=== PATIENT | male | born 1950 | race Two or more races ===

== ENCOUNTER 2024-04-18 09:51 | Outpatient (OUT) | payer MEDICARE, SELFPAY ==
--- NOTE | 2024-04-18 10:01 | ECG_ITS ---
[facility] Test Date: 2024-04-18 Pat Name: AMEE RAI Department: Room: - Gender: Male Telehealth Director: : 1950 Requested By: BRUNO WILLOUGHBY Order Number: [id number] Reading MD: HOANG DUQUE Measurements Intervals [place] Rate: 48 P: 81 SD: 162 QRS: 53 QRSD: 90 T: 60 QT: 424 QTc: 382 Interpretive Statements SINUS BRADYCARDIA No previous ECG available for comparison Electronically Signed On 04-20-2024 13:13:40 EDT by HOANG DUQUE
[2024-04-18 11:03] LABS: Basophils Percent Auto 0.2 % (0.2-2.0); Eosinophils Percent Auto 0.6 % (0.9-7.0); Hematocrit 45.2 % (42.0-54.0); Hemoglobin 15.1 g/dL (14.0-18.0); Immature Granulocytes Abs Auto 0.02 10^3/uL (0.00-0.03); Immature Granulocytes Pct Auto 0.3 % (0.0-0.5); Lymphocytes Percent Auto 15.3 % (20.5-60.0); Mean Corpuscular HGB Conc 33.4 g/dL (29.9-35.2); Mean Corpuscular Hemoglobin 32.8 pg (25.9-34.0); Mean Corpuscular Volume 98.3 fL (80.0-94.0); Mean Platelet Volume 9.1 fL (9.5-13.5); Monocytes Absolute Auto 0.4 10^3/uL (0.3-0.8); Monocytes Percent Auto 6.3 % (1.7-12.0); Neutrophils Absolute Auto 4.9 10^3/uL (1.4-6.5); Neutrophils Percent Auto 77.3 % (43.0-75.0); Platelet Count 207 10^3/uL (150-450); Red Cell Distribution Width 12.1 % (11.0-15.0); White Blood Count 6.4 10^3/uL (4.0-11.0)
[2024-04-18 11:43] LABS: INR 2.31; Partial Thromboplastin Time 37.9 sec (22.3-36.2); Prothrombin Time 22.5 sec (9.0-11.6)
[2024-04-18 11:47] LABS: Anion Gap 13.3; BUN Creatinine Ratio 14.4; Calcium 8.8 mg/dL (8.5-10.1); Carbon Dioxide 27.3 mmol/L (21.0-32.0); Chloride 105 mmol/L (98-107); Estimated GFR (African America >60 (>=60); Estimated GFR (Non-African Ame >60 (>=60); Glucose 93 mg/dL (74-106); Potassium 4.6 mmol/L (3.5-5.1); Sodium 141 mmol/L (136-145)
== END 2024-04-18 09:52 | disposition home or self-care (01) ==
LOC: PST 09:54
PROVIDERS: PCP Family Medicine; Visit Provider Urology
DX: Z01.810 Encounter for preprocedural cardiovascular examination (principal); Z01.812 Encounter for preprocedural laboratory examination; N40.1 Benign prostatic hyperplasia with lower urinary tract symptoms
CPT/HCPCS: 80048; 85025; 85610; 85730; 93005

== ENCOUNTER 2024-04-28 09:33 | Day surgery (SDC) | payer MEDICARE, SELFPAY ==
[2024-04-18 10:07] VITALS: BP 144/88; PULSE 53; TEMP 36.1; O2SAT 98; BMI 26.1
[2024-04-28] VITALS (16 sets, daily range): BP systolic 115–156; BP diastolic 66–94; PULSE 52–80; TEMP 36.1–36.6; O2SAT 93–98; BMI 26.1
[2024-04-28 10:17] LABS: INR 1.06; Partial Thromboplastin Time 25.6 sec (22.3-36.2); Prothrombin Time 11.2 sec (9.0-11.6)
[2024-04-28] MEDS: LACTATED RINGER'S SOLUTION 1,000 ML 50 ML IV ×2 (10:26→13:44)
[2024-04-28] MEDS: LEVOFLOXACIN IN DEXTROSE 5 % 500 MG/100 ML PIGGYBACK 100 MG IV (11:56)
--- NOTE | 2024-04-28 13:41 | P.URON_ITS ---
Urology Surgery Operative Note Operative Note Procedure Date: 04/28/24 Time Out Performed: yes Pre-op Diagnosis: Recurrent gross hematuria, BPH with LUTS Post-op Diagnosis: same as pre-op Procedures performed: 1. Cystoscopy. 2. Transurethral resection of the prostate. 3. Removal of UroLift bands x 4 Anesthesia: BONA Primary Surgeon: [place] Cartagena Complications: None Estimated blood loss (mL): 20 Findings: Tightly obstructing prostate lateral lobes and apical. Severe bladder damage Specimens: Prostate chips and UroLift bands Drains: 22 [place] three-way coud? Jane catheter taped to traction and CBI Indications for Procedures: This gentleman had a UroLift procedure done several years ago by Dr. Castaneda. He has had gross hematuria intermittently ever since the procedure. He also has a weak stream and incomplete emptying. He is obstructed urodynamically and endoscopically. He is strongly desirous for TURP and attempted removal of his UroLift bands. He has signed an informed consent for these procedures after risks were explained. Some of these risks include bleeding, infection, anesthesia, urinary incontinence both temporary and permanent, persistent gross hematuria, retrograde ejaculation, erectile dysfunction and possible need for further operations just to name a few. Detailed description of Procedure: The patient was brought to the operating room and placed on the operating room table in the supine position. SCDs were placed on the lower extremities and turned on and functioning during the entire case. Timeout was done by all parties in the room. We all agreed upon the patient's identification and the planned procedures for this patient. Genn. anesthesia was then administered. The patient was then repositioned into the modified dorsal lithotomy position. All pressure points were satisfactorily padded. Genitalia were sterilely prepped and draped in usual fashion. I started by passing a 26 [place] Garrett resectoscope with a standard bipolar loop electrode per urethra and into the bladder. Severe bladder damage was noted with thick trabeculation and multiple deep diverticuli. The ureteral orifices were marked with the loop electrode. I started on the median lobe and uniformly resected this down to the bladder neck level. I then resected posteriorly from the bladder neck to the Veru level. UroLift bands were removed from the median lobe. The left lateral lobe was then resected from the bladder neck to the Gisella. Purulence pockets were unroofed. I then resected the right lateral lobe in a similar manner. Purulence pockets were also on removed in the right lateral lobe. 2 more UroLift bands were removed from the right side. The anterior tissue was then taken down. I then brought the scope back to the apex. The apical lobes were tightly coapting. They protruded beyond the Gisella. I uniformly resected these so as to open up the obstruction. The bladder neck was opened up at the 5 and 7:00 positions. The Ilich evacuator was used numerous times to get all of the prostate chips and UroLift bands out. The resection bed was coagulated with the loop electrode to maintain hemostasis. Upon completion, with the scope at the Veru, the prostatic urethra and bladder neck were now wide open. There was no bleeding. There were no chips remaining in the bladder. The scope was then removed. I then passed a [address] [place] three- way coud? Jane catheter easily into the bladder. It was manually irrigated with a catheter tip syringe. I then inflated 30 cc of fluid in the balloon. It was taped to traction and CBI was started. It irrigated to a light blood-tinged color. The anesthetic was then reversed. He was then transferred to a [facility] bed and wheeled to PACU in stable condition. Urinary Catheter Management Urinary Catheter Management Urethral: Cath placed during this visit: no
[2024-04-28] MEDS: SOLIFENACIN SUCCINATE 10 MG TABLET PO (13:58)
[2024-04-28] MEDS: 0.9 % SODIUM CHLORIDE 1,000 ML 80 ML IV (13:59)
[2024-04-28] MEDS: HYDROMORPHONE HCL 0.5 MG/0.5 ML SYRINGE IV (14:15)
--- NOTE | 2024-04-28 14:29 | PC.NURSE ---
1410: notified that pts CBI was not irrigating,'s to bedside at 1415 and irrigated pts catheter. pts urine is pink with no clots.
--- NOTE | 2024-04-28 14:32 | PC.NURSE ---
pt medicated at 1415 with 0.5mg IV Dilaudid.
[2024-04-28] MEDS: SODIUM CHLORIDE IRRIG SOLUTION 3,000 ML 3000 ML IRR ×10 (15:55→23:40)
[2024-04-28] MEDS: ATORVASTATIN CALCIUM 10 MG TABLET PO (21:06)
[2024-04-28] MEDS: CEFAZOLIN SODIUM/DEXTROSE,ISO 1 GM/50 ML IV.SOLN IV (21:06)
[2024-04-29] MEDS: SODIUM CHLORIDE IRRIG SOLUTION 3,000 ML 3000 ML IRR ×3 (00:36→02:47)
[2024-04-29] MEDS: 0.9 % SODIUM CHLORIDE 1,000 ML 80 ML IV (00:54)
[2024-04-29] MEDS: CEFAZOLIN SODIUM/DEXTROSE,ISO 1 GM/50 ML IV.SOLN IV (02:47)
[2024-04-29 03:42] VITALS: BP 129/71; PULSE 68; TEMP 36.5; O2SAT 94
--- NOTE | 2024-04-29 05:12 | PC.NURSE ---
traction released at 0506. pt tolerated well. CBI weaning
[2024-04-29] MEDS: OMEPRAZOLE 40 MG CAPSULE.DR PO (06:42)
[2024-04-29 08:00] VITALS: BP 146/84; PULSE 64; TEMP 36.4; O2SAT 96
[2024-04-29] MEDS: DILTIAZEM HCL 180 MG CAP.ER.24H PO (08:39)
[2024-04-29] MEDS: SOLIFENACIN SUCCINATE 10 MG TABLET PO (08:39)
[2024-04-29] MEDS: CALCIUM CARBONATE 600 MG TABLET PO (08:39)
[2024-04-29] MEDS: HYDROCODONE/ACET 5-325 MG TABLET 1 TAB PO (09:04)
== END 2024-04-29 09:26 | disposition home or self-care (01) ==
LOC: SURGOUT 13:37 → MS 15:39
PROVIDERS: PCP Family Medicine; Visit Provider Urology
PROC: (CPT 52601; principal; 2024-04-28 11:15)
DX: N40.1 Benign prostatic hyperplasia with lower urinary tract symptoms (principal); Z79.01 Long term (current) use of anticoagulants; R31.0 Gross hematuria; N32.89 Other specified disorders of bladder; E78.5 Hyperlipidemia, unspecified; I48.91 Unspecified atrial fibrillation; K21.9 Gastro-esophageal reflux disease without esophagitis; Z86.718 Personal history of other venous thrombosis and embolism
CPT/HCPCS: 52601; 36415; 85610; 85730; 88305; J0131; J0690; J1100; J1170; J2250; J2405; J2704; J3010

== ENCOUNTER 2024-05-01 19:55 | Emergency (ER) | payer MEDICARE, OTHER, SELFPAY ==
[2024-05-01 19:58] VITALS: BP 150/94; PULSE 75; TEMP 36.6; O2SAT 98; BMI 24.2
--- OUTSIDE RECORDS SUMMARY | 2024-05-01 20:03 | XMS_ITS | CCD ---
Author Organization [facility] Care Team Providers Care Post Acute Care Nurse Name Role Phone Phoebe KENNEDY Primary Care Physician [phone] Phoebe Kennedy MD Primary Care Provider Phoebe KENNEDY Primary Care Physician [phone] PHOEBE KENNEDY Primary Care Unavailable BEATRIS, PHOEBE Dorado Admitting Unavailable BROWN, Phoebe Attending Unavailable CARTAGENA, [place] R Attending Unavailable CARTGAENA, [place] R Attending Unavailable CARTAGENA, [place] R Attending Unavailable BROWN, Christopher Attending Unavailable BROWN, Christopher Attending Unavailable BROWN, Christophblanco Attending Unavailable CARTAGENA, [place] R Attending Unavailable CARTAGENA, [place] R Referring Unavailable CARTAGENA, [place] R Admitting Unavailable CARTAGENA, [place] R Admitting Unavailable CARTAGENA, [place] R Attending Unavailable CARTAGENA, [place] R Referring Unavailable CARTAGENA, [place] R Attending Unavailable CARTAGENA, [place] R Attending Unavailable CARTAGENA, [place] R Referring Unavailable CARTAGENA, [place] R Admitting Unavailable CARTAGENA, [place] R Attending Unavailable BROWN, Christopher Attending Unavailable BROWN, Christopher Admitting Unavailable BROWN, Christopher Attending Unavailable BROWN, Christopher Admitting Unavailable Eric CASTANEDA Attending Unavailable CARTAGENA, [place] R Attending Unavailable BROWN, Christopher Attending Unavailable BROWN, Christopher Admitting Unavailable BROWN, Christopher Attending Unavailable BROWN, Christopher Attending Unavailable BROWN, Christopher Attending Unavailable BROWN, Christopher Attending Unavailable BROWN, Christopher Attending Unavailable Lou Pacheco PA-C Primary Care Provider LOU PACHECO Attending Unavailable LOU PACHECO Primary Care Unavailable Medications Current Medications Medication Drug Class(es) Dates Sig (Normalized) Sig (Original) calcium carbonate 1500 mg oral tablet (20 sources) Start: 03-01-2018 take 1 tablet by mouth once daily calcium (as carbonate) 600 mg oral tablet 600 mg = 1 tab(s), Oral, Daily, Refills(s) 0 Start Date: 03/01/18 Status: Ordered dextromethorphan hydrobromide 3 mg/ml / promethazine hydrochloride 1.25 mg/ml oral solution (6 sources) Phenothiazine, Uncompetitive F-rnfial-U-aspartat e Receptor Antagonist, Sigma-1 Agonist Start: 04-25-2022 take 5 mL by mouth every six hours for cough dextromethorphan -promethazine 15 mg-6.25 mg/5 mL Oral Syrup 5 mL 5 mL, Oral, q6hr for cough, 120 mL, Refill(s) 0, [facility]/pharmacy #[id number], 182, cm, 02/07/22 11:42:00 EDT, Height/Length Dosing, 82.5, kg, 02/07/22 11:42:00 EDT, Weight Dosing Start Date: 04/25/22 Status: Ordered 24 hr dilTIAZem hydrochloride 180 mg extended release oral capsule (20 sources) Calcium Channel Arjun Start: 09-15-2023 diltiazem CD 180 mg/24 hours Cap-ER 180 mg = 1 cap(s), Oral, Daily, # 90 cap(s), Refills(s) 1, Pharmacy: [facility], 182, cm, 07/24/23 8:37:00 EDT, Height/Length Dosing, 80, kg, 07/24/23 8:37:00 EDT, Weight Dosing Start Date: 09/15/23 Status: Ordered Start: 07-01-2023 diltiazem (CAR DIZEM CD) 180 MG 24 hr capsule 07/01/2023 Active Start: 04-20-2023 diltiazem CD 1 80 mg/24 hours Cap-ER 180 mg = 1 cap(s), Oral, Daily, # 90 cap(s), Refills(s) 1, Pharmacy: [facility], 182, cm, 01/30/23 10:05:00 EDT, Height/Length Dosing, 83.9, kg, 01/30/23 10:05:00 EDT, Weight Dosing Start Date: 04/20/23 Status: Ordered Start: 11-24-2022 diltiazem CD 1 80 mg/24 hours Cap-ER 180 mg = 1 cap(s), Oral, Daily, # 90 cap(s), Refills(s) 1, Pharmacy: [facility], 182, cm, 07/15/22 8:43:00 EDT, Height/Length Dosing, 82.5, kg, 07/15/22 8:43:00 EDT, Weight Dosing Start Date: 11/24/22 Status: Ordered Start: 07-01-2022 diltiazem CD 1 80 mg/24 hours Cap-ER 180 mg = 1 cap(s), Oral, Daily, # 90 cap(s), Refills(s) 1, Pharmacy: [facility], 182, cm, 02/07/22 11:42:00 EDT, Height/Length Dosing, 82.5, kg, 02/07/22 11:42:00 EDT, Weight Dosing Start Date: 07/01/22 Status: Ordered Start: 02-07-2022 diltiazem CD 1 80 mg/24 hours Cap-ER 180 mg = 1 cap(s), Oral, Daily, # 90 cap(s), Refills(s) 1, Pharmacy: [facility], 182, cm, 02/07/22 11:42:00 EDT, Height/Length Dosing, 82.5, kg, 02/07/22 11:42:00 EDT, Weight Dosing Start Date: 02/07/22 Status: Ordered Start: 02-07-2022 diltiazem CD 1 80 mg/24 hours Cap-ER 180 mg = 1 cap(s), Oral, Daily, # 90 cap(s), Refills(s) 1, Pharmacy: [facility], 182, cm, 02/07/22 11:42:00 EDT, Height/Length Dosing, 82.5, kg, 02/07/22 11:42:00 EDT, Weight Dosing Start Date: 02/07/22 Status: Ordered Start: 05-20-2021 diltiazem CD 1 80 mg/24 hours Cap-ER 180 mg = 1 cap(s), Oral, Daily, # 90 cap(s), Refills(s) 1, Pharmacy: [facility], 182, cm, 01/31/21 13:26:00 EDT, Height/Length Dosing, 80.4, kg, 01/31/21 13:26:00 EDT, Weight Dosing Start Date: 05/20/21 Status: Ordered hydrocortisone 25 mg/ml topical cream (2 sources) Corticosteroid Start: 04-25-2024 End: 04-25-2025 hydrocortisone 2.5 % cream Apply topically 2 (two) times a day . 30 g 04/25/2024 04/25/2025 Active [employer] Bounty Red Krill Oil (20 sources) Start: 03-01-2018 [employer] Bount y Red Krill Oil 1200, Oral, BID, Refill(s) 0 Start Date: 03/01/18 Status: Ordered omeprazole 40 mg delayed release oral capsule (20 sources) Proton Pump Inhibitor Start: 11-24-2022 omeprazo le (PRILOSEC) 40 MG capsule Take 1 (one) capsule (40 mg total) by mouth . 11/24/2022 Active Start: 06-30-2022 take 1 capsule by [facility] once daily omeprazole 40 mg Cap-DR 40 mg = 1 cap(s), Oral, Daily, # 90 cap(s), Refills(s) 1, Pharmacy: [facility], 182, cm, 02/07/22 11:42:00 EDT, Height/Length Dosing, 82.5, kg, 02/07/22 11:42:00 EDT, Weight Dosing Start Date: 06/30/22 Status: Ordered Start: 02-07-2022 take 1 capsule by [facility] once daily omeprazole 40 mg Cap-DR 40 mg = 1 cap(s), Oral, Daily, # 90 cap(s), Refills(s) 1, Pharmacy: [facility], 182, cm, 02/07/22 11:42:00 EDT, Height/Length Dosing, 82.5, kg, 02/07/22 11:42:00 EDT, Weight Dosing Start Date: 02/07/22 Status: Ordered omeprazole 20 mg Cap-DR (1 source) Start: 09-30-2021 take 1 capsule by mouth once daily omeprazole 20 mg Cap-DR 20 mg = 1 cap(s), Oral, Daily, # 90 cap(s), Refills(s) 1, Pharmacy: [facility], 182, cm, 07/22/21 9:25:00 EDT, Height/Length Dosing, 81, kg, 07/22/21 9:25:00 EDT, Weight Dosing Start Date: 09/30/21 Status: Ordered omeprazole 40 mg Cap-DR (2 sources) Start: 02-07-2022 take 1 capsule by mouth once daily omeprazole 40 mg Cap-DR 40 mg = 1 cap(s), Oral, Daily, # 90 cap(s), Refills(s) 1, Pharmacy: [facility], 182, cm, 02/07/22 11:42:00 EDT, Height/Length Dosing, 82.5, kg, 02/07/22 11:42:00 EDT, Weight Dosing Start Date: 02/07/22 Status: Ordered Start: 10-07-2021 take 1 capsule by mo ut once daily omeprazole 40 mg Cap-DR 40 mg = 1 cap(s), Oral, Daily, # 90 cap(s), Refills(s) 1, Pharmacy: [facility], 182, cm, 07/22/21 9:25:00 EDT, Height/Length Dosing, 81, kg, 07/22/21 9:25:00 EDT, Weight Dosing Start Date: 10/07/21 Status: Ordered pravastatin sodium 20 mg oral tablet (20 sources) HMG-CoA Reductase Inhibitor Start: 11-24-2022 pravastatin (PRAVACHOL) 20 MG tablet Take 1 (one) tablet (20 mg total) by mouth . 11/24/2022 Active Start: 07-01-2022 take 1 tablet by trae th at bedtime pravastatin 20 mg Tab 20 mg = 1 tab(s), Oral, Bedtime, # 90 tab(s), Refills(s) 1, Pharmacy: [facility], 182, cm, 02/07/22 11:42:00 EDT, Height/Length Dosing, 82.5, kg, 02/07/22 11:42:00 EDT, Weight Dosing Start Date: 07/01/22 Status: Ordered Start: 02-07-2022 take 1 tablet by trae th at bedtime pravastatin 20 mg Tab 20 mg = 1 tab(s), Oral, Bedtime, # 90 tab(s), Refills(s) 1, Pharmacy: [facility], 182, cm, 02/07/22 11:42:00 EDT, Height/Length Dosing, 82.5, kg, 02/07/22 11:42:00 EDT, Weight Dosing Start Date: 02/07/22 Status: Ordered Start: 05-20-2021 take 1 tablet by trae th at bedtime pravastatin 20 mg Tab 20 mg = 1 tab(s), Oral, Bedtime, # 90 tab(s), Refills(s) 1, Pharmacy: [facility], 182, darryl, 01/31/21 13:26:00 EDT, Height/Length Dosing, 80.4, kg, 01/31/21 13:26:00 EDT, Weight Dosing Start Date: 05/20/21 Status: Ordered warfarin sodium 5 mg oral tablet (20 sources) Vitamin K Antagonist Start: 12-05-2022 warfarin (COUMADIN) 5 MG tablet Take 1 (one) tablet (5 mg total) by mouth . 12/05/2022 Active Start: 05-26-2022 take 1 tablet by trae th once daily Coumadin 5 mg Tab 5 mg = 1 tab(s), Oral, Daily, # 90 tab(s), Refills(s) 1, Pharmacy: [facility], 182, cm, 02/07/22 11:42:00 EDT, Height/Length Dosing, 82.5, kg, 02/07/22 11:42:00 EDT, Weight Dosing Start Date: 05/26/22 Status: Ordered Start: 05-20-2021 take 1 tablet by trae th once daily Coumadin 5 mg Tab 5 mg = 1 tab(s), Oral, Daily, # 90 tab(s), Refills(s) 1, Pharmacy: [facility], 182, cm, 01/31/21 13:26:00 EDT, Height/Length Dosing, 80.4, kg, 01/31/21 13:26:00 EDT, Weight Dosing Start Date: 05/20/21 Status: Ordered Completed/Discontinued Medications Medication Drug Class(es) Dates Sig (Normalized) Sig (Original) ciprofloxacin 500 mg oral tablet (6 sources) Quinolone Antimicrobial Start: 4 take 1 tablet by mouth once daily Cipro 500 mg Tab 500 mg = 1 tab(s), Oral, Daily, Take 1 tablet the day before the procedure and 1 tablet after the procedure, # 2 tab(s), Refills(s) 0, Pharmacy: [id number], 182, cm, 07/24/23 8:37:00 EDT, Height/Length Dosing, 80, kg, 07/24/23 8:37:00 EDT, Weight Dosing Start Date: 01/15/24 Status: Ordered methylPREDNISolone 40 mg injection (4 sources) Corticosteroid Start: 4 End: methylPREDNISolone sod suc(PF) (SOLU-medrol) 40 mg Start: 04-25-2024 End: 04-25-2024 40 mg, Injection, Once, On M on 04/25/24 at 0930, For 1 dose Start: 04-25-2024 End: 04-25-2024 methylPREDNISolone sod suc(P F) (SOLU-medrol) 40 mg Start: 04-25-2024 End: 04-25-2024 40 mg, Injection, Once, On M on 04/25/24 at 0930, For 1 dose Problems Active Problems Problem Classification Problem Date Documented Da te Episodic/Chronic Administrative/social admission (4 sources) Patient encounter status; Translations: [Persons encountering health services in other specified circumstances] Onset: 4 04-25-2024 Episodic Allergic reactions (4 sources) Contact dermatitis due to poison renee; Translations: [Allergic contact dermatitis due to plants, except food] Onset: 4 04-25-2024 Episodic Cardiac dysrhythmias (20 sources) Atrial fibrillation; Translations: [Chronic atrial fibrillation] Onset: 2 Resolved: 9 07-24-2019 Chronic Conditions associated with dizziness or vertigo (5 sources) Dizziness 01-30-2023 Episodic Disorders of lipid metabolism (20 sources) Hyperlipidemia; Translations: [Mixed hyperlipidemia] Onset: 2 Resolved: 9 07-24-2019 Chronic Esophageal disorders (20 sources) Gastroesophageal reflux disease; Translations: [Gastroesophageal reflux disease without esophagitis] Onset: 2 07-06-2020 Chronic Genitourinary symptoms and ill-defined conditions (20 sources) Naresh hematuria; Translations: [Increased frequency of urination] Onset: 2 01-30-2021 Episodic Hyperplasia of prostate (20 sources) Benign prostatic hypertrophy with outflow obstruction; Translations: [Hyperplasia of prostate] Onset: 2 Resolved: 9 07-06-2020 Chronic Immunizations and screening for infectious disease (3 sources) Vaccination given; Translations: [Encounter for immunization] Onset: 2 Episodic Open wounds of extremities (3 sources) Laceration of finger without foreign body; Translations: [Laceration without foreign body of right index finger without damage to nail, initial encounter] Onset: 3 07-12-2023 Episodic Other aftercare (20 sources) Long-term current use of anticoagulant; Translations: [terminal manager (current) use of anticoagulants] Onset: 2 04-30-2020 Episodic Other aftercare (2 sources) Long-term current use of drug therapy; 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] Onset: 2 Episodic Other aftercare (3 sources) Surgical follow-up; Translations: [Encounter for removal of sutures] Onset: 3 Episodic Other aftercare (2 sources) jail (current) use of anticoagulants; Translations: [jail (current) use of anticoagulants] Onset: 4 Episodic Other diseases of kidney and ureters (1 source) Urinary tract obstruction; Translations: [Other obstructive and reflux uropathy] Onset: 3 Episodic Other nutritional; endocrine; and metabolic disorders (20 sources) Overweight; Translations: [Overweight] Onset: 4 02-14-2020 Episodic Other nutritional; endocrine; and metabolic disorders (9 sources) Overweight in adulthood with body mass index of 25 or more but less than 30; Translations: [Body mass index (BMI) 25.0-25.9, adult] Onset: 4 01-30-2023 Episodic Other screening for suspected conditions (not mental disorders or infectious disease) (6 sources) Encounter for screening for malignant neoplasm of prostate; Translations: [Screening for malignant neoplasm done] Onset: 2 Episodic Other upper respiratory disease (20 sources) Allergic rhinitis due to pollen 07-03-2020 Chronic Phlebitis; thrombophlebitis and thromboembolism (20 sources) H/O: Deep vein thrombosis; Translations: [H/O: thrombosis] Onset: 2 Resolved: 8 02-17-2019 Episodic Residual codes; unclassified (20 sources) Family history of prostate cancer 02-14-2020 Episodic Comment on above: and Brother Residual codes; unclassified (1 source) Body mass index 20-24 - normal; Translations: [Body mass index (BMI) 24.0-24.9, adult] Onset: 2 Episodic Residual codes; unclassified (1 source) Family history of cancer; Translations: [Family history of malignant neoplasm of prostate] Onset: 2 Episodic Unclassified (17 sources) Body mass index 20-24 - normal 07-06-2020 Unclassified (20 sources) Drug therapy finding 07-04-2022 Unclassified (9 sources) Influenza vaccination given 07-04-2022 Unclassified (17 sources) Vaccination given 07-04-2022 Unclassified (18 sources) Patient encounter status 01-28-2023 Unclassified (3 sources) Laceration of finger with foreign body 07-13-2023 Unclassified (2 sources) Permanent atrial fibrillation; Translations: [Permanent atrial fibrillation] Onset: 4 Past or Other Problems Problem Classification Problem Date Documented Date Episodic/Chronic Abdominal pain (20 sources) Epigastric pain Resolved: 03-01-2018 02-17-2019 Episodic Noninfectious gastroenteritis (20 sources) Chronic diarrhea Resolved: 04-18-2019 04-21-2019 Episodic Other diseases of veins and lymphatics (20 sources) Peripheral venous insufficiency; Translations: [Venous insufficiency (chronic) (peripheral)] Onset: 02-06-2022 07-06-2020 Episodic Other nutritional; endocrine; and metabolic disorders (20 sources) Body mass index 25-29 - overweight Resolved: 02-17-2019 07-06-2019 Episodic Residual codes; unclassified (20 sources) Family history of coronary arteriosclerosis Resolved: 03-01-2018 02-17-2019 Episodic Results Test Name Value Interpretation Reference Range Facil ity Ambulatory Visit Summaryon 0 04-18-2024 Ambulatory Visit Summary Ambulatory Visit Summary AMEE RAI :1950 Visit Date:04/18/2024 Ambulatory Visit Instructions Your Diagnosis BPH with obstruction/lower urinary tract symptoms Chronic atrial fibrillation History of venous thrombosis Anticoagulant long-term use GERD (gastroesophageal reflux disease) Overweight Other obstructive and reflux uropathy Your Care Team Attending Physician - Phoebe KENNEDY MD Primary Care Physician - Phoebe KENNEDY MD This Is Your Medications List Contact prescribing physician if questions or concerns calcium carbonate (calcium (as carbonate) 600 mg oral tablet) ciprofloxacin (Cipro 500 mg Tab) diltiazem (diltiazem CD 180 mg/24 hours Cap-ER) omega-3 polyunsaturated fatty acids ([employer] Red Krill Oil) omeprazole (omeprazole 40 mg Cap-DR) pravastatin (pravastatin 20 mg Tab) warfarin (Coumadin 5 mg Tab) Procedures Performed Transurethral insertion of prostatic urethral lift implant (04/28/2018), Cystoscopy (03/17/2018), Cystoscopy (02/13/2016), Colonoscopy (02/11/2013), Esophagogastroduodenos copy (02/11/2013), Rotator cuff (03/01/2005), [place] filter, device (03/01/1997), Tonsillectomy and adenoidectomy. Discharge Vitals Heart Rate (Peripheral) 66 Respiratory Rate 16 Blood Pressure 100/60 Height 182 cm Height 72 in Weight 84.4 kg Weight 185.68 lb BMI 25.48 What to do next Scheduled Follow-Up Appointments Thursday 9:00 AM EDT With: Where: [facility] Invalid Interpretation Code [address] [place] [address] [place] [address]- \.br\ Thursday 9:20 AM EDT \.br\ With: Phoebe KENNEDY MD\.br\ Where: [facility] Family Medicine Office/Clini c Noteon 04-18-2024 Family Medicine Office/Clinic Note Family Medicine Office/Clinic Note Chief Complaint pt presents today with for discussion prior to surg with dr cartagena History of Present Illness The patient is a 74-year-old male who is here for surgical clearance for transurethral resection of the prostate. Accompanied by his The patient is scheduled for a Transurethral Resection of the Prostate (TURP) procedure with Dr. Cartagena on 04/28/2024. An electrocardiogram (EKG) was conducted today at [facility]. His anticoagulant therapy is expected to cease on 04/23/24 prior to surgery. INR has been therapeutic with chronic warfarin management. He has been advised to use compression pads post-surgery with his history of recurrent DVTs. Currently He reports nocturia, waking up twice per night to urinate, a symptom that predates his UroLift procedure. His bladder is notably showing trabeculation and the staple from the UroLift has loosened and caused bleeding on a fairly regular basis. This bleeding is exacerbated by physical activities such as golf and lifting. He denies experiencing chest pain or shortness of breath. His dental health is satisfactory, as evidenced by his recent filling procedure. He reports no adverse reactions to anesthesia. He has previously used a urinary catheter for overnight use. Laboratory tests have been conducted, but no chest x-ray has been performed. Review of Systems PHQ Score Initial Depression Screen Score: 0 SCORE See HPI otherwise negative Physical Exam Vitals & Measurements HR: 66(Peripheral) RR: 16 BP: 100/60 SpO2: 97% HT: 72 in HT: 182 cm WT: 84.4 kg WT: 185.68 lb BMI: 25.48 Patient is well groomed and well hydrated. Patient is wearing corrective lenses. Conjunctiva is clear. The dentition. Neck without thyromegaly or JVD. Lungs are clear. Patient is overweight, nontender, with no organomegaly. Genitourinary exam was deferred. Patient is wearing a sports stocking in the left lower extremity. Mild chronic pitting edema is present. Patient is well developed and ambulatory without difficulty. Skin is deeply tanned. Patient is insightful. Assessment/Plan 1. BPH with obstruction/lower urinary tract symptoms (N40.1: Benign prostatic hyperplasia with lower urinary tract symptoms) Chronic BPH symptomatology with hematuria is necessitating progression to a TURP. UroLift anchors will be removed. Dr. Cartagena will be managing postoperative course. I have encouraged patient to restart his warfarin if possible within 5 days of surgery if having limited bleeding. 2. Chronic atrial fibrillation (I48.21: Permanent atrial fibrillation) History of atrial fibrillation currently in sinus rhythm. Patient remains fully anticoagulated and using diltiazem for rate control. Always remain vigilant particularly when off of the anticoagulation for any acute exacerbation or GI symptomatology with the needs for which seek emergent care understood 3. History of venous thrombosis (Z86.718: Personal history of other venous thrombosis and embolism) Longstanding history of recurrent DVT but patient has been stable for quite some time. Will be very important to resume his anticoagulant as soon as urology deems feasible. Use the compression pumps daily. 4. Anticoagulant long-term use (Z79.01: jail (current) use of anticoagulants) Current INR is therapeutic. Understands that restarting Coumadin approximately day 5 should be 5 mg daily for 1 week and then resume his usual dosing as previous with a recheck INR in 2 weeks. 5. GERD (gastroesophageal reflux disease) (K21.9: Gastro-esophageal reflux disease without esophagitis) Continuing with chronic PPI omeprazole. Maintain dietary discretions and always remain vigilant for any bleeding 6. Overweight (E66.3: Overweight) The standard range for ages 18 and older is >=18.5 and < 25 kg/m2. Your BMI today was above this range, this falls in the overweight to obese category and there are medical benefits to weight loss. We can offer counselling, referral, and/or medical support in addressing this problem. Your BMI and weight management will be followed at subsequent visits. 7. BMI 25.0-25.9,adult (Z68.25: Body mass index [BMI] 25.0-25.9, adult) See see #6 Portions of this record may have been created with voice recognition artificial intelligence software, specifically [employer], Tip[employer] and or [facility]. Substitutions may have occurred due to the inherent limitations of voice recognition and artificial intelligence software. Follow-up With When Contact Information Phoebe KENNEDY MD, FAM Only if needed Additional Instructions: Patient Education Benign Prostatic Hyperplasia Problem List/Past Medical History Ongoing Anticoagulant long-term use BMI 25.0-25.9,adult BPH with obstruction/lower urinary tract symptoms Chronic atrial fibrillation Chronic venous insufficiency COVID-19 vaccine series started Family history of prostate cancer Frequency of urinati (more content not included)... Normal [facility] Comment on above: Result Comment: Elec tronically Signed By: BEATRIS ROMERO, Michael.br\Date and Time Signed: 04/18/24 22:36 EDT PT/INRon 03-28-2024 INR Coag (PPP) [Relative time] 2.8 {INR} High 0.8-1.1 [facility] Comment on above: Order Comment: Durin g the induction phase of oral anticoagulation, the INR may not reflect the anticoagulation status of the patient. Therapeutic ranges for INR's are: Most clinical situations: INR 2.0-3.0 Mechanical Prosthetic Valve: INR 2.5-3.5 Critical: INR >5.0 Performed By: #### [id number] #### [facility] [address] [place] [address] Constantin Hedrick M.D. [id number] PT Coag (PPP) [Time] 29.8 s High 11.8-14.3 [facility] Comment on above: Order Comment: Zachary g the induction phase of oral anticoagulation, the INR may not reflect the anticoagulation status of the patient. Therapeutic ranges for INR's are: Most clinical situations: INR 2.0-3.0 Mechanical Prosthetic Valve: INR 2.5-3.5 Critical: INR >5.0 Performed By: #### [id number] #### [facility] [address] [place] [address] Constantin Hedrick M.D. [id number] Consent for Procedure/Surger yon 03-17-2024 Consent for Procedure/Surgery [id number] 0TIFF [facility] Consent for Procedure/Surger yon 03-01-2024 Consent for Procedure/Surgery [id number] 0TIFF [facility] Consent for Treatmenton Consent for Treatment [id number] 0TIFF Normal [facility] IntraOperative Documentson 0 03-01-2024 IntraOperative Documents [id number] 0TIFF Normal [facility] IntraOperative Documents [id number] 0TIFF Normal [facility] Fish and Urine Cyt o ([facility])on 02-09-2024 [facility] Diagnosis Info Invalid Interpretation Code [facility] Comment on above: Result Comment: A:Ur ine,Urine:Voided Diagnosis Summary - Diagnosis Summary - The UroVysion FISH study detected normal copy numbers for chromosomes 3, 7, 17, and 9p21. 88 cells were analyzed in this evaluation. No evidence of aneuploidy for chromosomes 3, 7, or 17 or deletion of the 9p21 locus was found in cells present in this specimen. This test does not rule out the possibility of a low grade non-invasive papillary urothelial carcinoma. These findings should be correlated with cytology and cystoscopy results.* Microscopic Notes - Microscopic Notes - Abnormal cells 9p21 deletions: Abnormal cells aneploid events: Total cells analyzed: 88 Hematuria: Gross Description Site ID:A color Yellow fixative Alcohol Received 90 mls of clear yellow fluid with the patient's name and, Urine on the vial. Electronically signed by : on: 02/09/2024 14:16:17 Performed By: #### 1 [id number] #### [facility] Laboratory [address] [place] [id number] Ambulatory Visit Summaryon 0 02-08-2024 Ambulatory Visit Summary AMEE RAI :1950 Visit Date:02/08/2024 Ambulatory Visit Instructions Your Diagnosis Chronic atrial fibrillation Anticoagulated BPH with obstruction/lower urinary tract symptoms Chronic venous insufficiency Hyperlipemia, mixed History of venous thrombosis GERD (gastroesophageal reflux disease) Overweight BMI 25.0-25.9,adult Your Care Team Attending Physician - Phoebe KENNEDY MD Primary Care Physician - Phoebe KENNEDY MD This Is Your Medications List Contact prescribing physician if questions or concerns calcium carbonate (calcium (as carbonate) 600 mg oral tablet) ciprofloxacin (Cipro 500 mg Tab) diltiazem (diltiazem CD 180 mg/24 hours Cap-ER) omega-3 polyunsaturated fatty acids (Nature's Bounty Red Krill Oil) omeprazole (omeprazole 40 mg Cap-DR) pravastatin (pravastatin 20 mg Tab) warfarin (Coumadin 5 mg Tab) Procedures Performed Transurethral insertion of prostatic urethral lift implant (04/28/2018), Cystoscopy (03/17/2018), Cystoscopy (02/13/2016), Colonoscopy (02/11/2013), Esophagogastroduodenos copy (02/11/2013), Rotator cuff (03/01/2005), [place] filter, device (03/01/1997), Tonsillectomy and adenoidectomy. Discharge Vitals Heart Rate (Peripheral) 65 Respiratory Rate 16 Blood Pressure 120/80 Height 182 cm Height 72 in Weight 84.1 kg Weight 185.02 lb BMI 25.39 What to do next Scheduled Follow-Up Appointments Thursday 3:00 PM EDT With: Where: [facility] Thursday 8:00 AM EDT With: Where: [facility] Thursday 9:45 AM EDT With: FARTUN ROMERO, [place] Dorado Where: [facility] Normal [address] [place] [address]- \.br\ You Need to Schedule the Following Appointments\.br\ Follow Up with BEATRIS ROMERO, RUBY Smith When: Within 6 months\.br\ Comments:\.br\ try to set up back to back with medicare exam\.br\ Where:\.br\ [address] [facility]\.br\ [place] [address]-\.br\ \.br\ Medications\.br\ What How Much When Instructions\.br\ Unchanged calcium carbonate (calcium (as carbonate) 600 mg oral tablet) 1 Tablets By Mouth Every day Contact prescribing physician if questions or concerns \.br\ Unchanged ciprofloxacin (Cipro 500 mg Tab) 1 Tablets By Mouth Every day Take 1 tablet the day before the procedure and 1 tablet after the procedure Contact prescribing physician if questions or concerns \.br\ Unchanged diltiazem (diltiazem CD 180 mg/ 24 hours Cap-ER) 1 Capsules By Mouth Every day Contact prescribing physician if questions or concerns \.br\ Unchanged omega-3 polyunsaturated fatty acids (Nature's Bounty Red Krill Oil) 1200 By Mouth 2 times a day Contact prescribing physician if questions or concerns \.br\ Unchanged omeprazole (omeprazole 40 mg Cap-DR) 1 Capsules By Mouth Every day Contact prescribing physician if questions or concerns \.br\ Unchanged pravastatin (pravastatin 20 mg Tab) 1 Tablets By Mouth At bedtime Contact prescribing physician if questions or concerns \.br\ Unchanged warfarin (Coumadin 5 mg Tab) 1 Tablets By Mouth Every day Contact prescribing physician if questions or concerns \.br\ Allergies\.br\ No Known Allergies\.br\ Problems\.br\ Ongoing - Any problem that you are currently receiving treatment for.\.br\ Anticoagulated\.br \ BMI 25.0-25.9,adult\.b r\ BPH with obstruction/lower urinary tract symptoms\.br\ Chronic atrial fibrillation\.br\ Chronic venous insufficiency\.br\ COVID-19 vaccine series started\.br\ Family history of prostate cancer\.br\ Frequency of urination\.br\ GERD (gastroesophageal reflux disease)\.br\ Gross hematuria\.br\ History of venous thrombosis\.br\ Hyperlipemia, mixed\.br\ On statin therapy\.br\ Overweight\.br\ Screen for colon cancer\.br\ Screening PSA (prostate specific antigen)\.br\ Historical - Any problem that you are no longer receiving treatment for.\.br\ Acute allergic rhinitis due to pollen\.br\ Afib\.br\ BMI 26.0-26.9,adult\.b r\ Chronic diarrhea\.br\ Epigastric pain\.br\ Family history of early CAD\.br\ Family history of prostate cancer in father\.br\ History of DVT in adulthood\.br\ Hyperlipidemia\.br \ Hypertrophy of prostate without urinary obstruction\.br\ Over weight\.br\ Venous thrombosis\.br\ Patient Survey\.br\ You may receive a survey via text or e-mail asking about your office visit. Please share your experience with us by completing your survey. We appreciate your feedback and thank you for choosing us for your care.\.br\ Education Materials\.br\ Atrial Fibrillation\.br\ \.br\ Atrial fibrillation is a type of irregular or rapid heartbeat (arrhythmia). In atrial fibrillation, the top part of the heart (atria) beats in an irregular pattern. This makes the heart unable to pump blood normally and effectively.\.br\ The goal of treatment is to prevent blood clots from forming, control your heart rate, or restore your heartbeat to a normal rhythm. If this condition is not treated, it can cause serious problems, such as a weakened heart muscle (cardiomyopathy) or a stroke.\.br\ What are the causes?\.br\ This condition is often caused by medical conditions that damage the heart's electrical system. These include:\.br\ ? \.br\ High blood pressure (hypertension). This is the most common cause.\.br\ ? \.br\ Certain heart problems or conditions, such as heart failure, coronary artery disease, heart valve problems, or heart surgery.\.br\ ? \.br\ Diabetes.\.br\ ? \.br\ Overactive thyroid (hyperthyroidism). \.br\ ? \.br\ Obesity.\.br\ ? \.br\ Chronic kidney disease.\.br\ In some cases, the cause of this condition is not known.\.br\ What increases the risk?\.br\ This condition is more likely to develop in:\.br\ ? \.br\ Older people.\.br\ ? \.br\ People who smoke.\.br\ ? \.br\ Athletes who do endurance exercise.\.br\ ? \.br\ People who have a family history of atrial fibrillation.\.br\ ? \.br\ Men.\.br\ ? \.br\ People who use drugs.\.br\ ? \.br\ People who drink a lot of alcohol.\.br\ ? \.br\ People who have lung conditions, such as emphysema, pneumonia, or COPD.\.br\ ? \.br\ People who have obstructive sleep apnea.\.br\ What are the signs or symptoms?\.br\ Symptoms of this condition include:\.br\ ? \.br\ A feeling that your heart is racing or beating irregularly.\.br\ ? \.br\ Discomfort or pain in your chest.\.br\ ? \.br\ Shortness of breath.\.br\ ? \.br\ Sudden light-headedness or weakness.\.br\ ? \.br\ Tiring easily during exercise or activity.\.br\ ? \.br\ Fatigue.\.br\ ? \.br\ Syncope (fainting).\.br\ ? \.br\ Sweating.\.br\ In some cases, there are no symptoms.\.br\ How is this diagnosed?\.br\ Your health care provider may detect atrial fibrillation when taking your pulse. If detected, this condition may be diagnosed with:\.br\ ? \.br\ An electrocardiogram (ECG) to check electrical signals of the heart.\.br\ ? \.br\ An ambulatory case monitor to record your heart's activity for a few days.\.br\ ? \.br\ A transthoracic echocardiogram (TTE) to create pictures of your heart.\.br\ ? \.br\ A transesophageal echocardiogram (RAPHAEL) to create even closer pictures of your heart.\.br\ ? \.br\ A stress test to check your blood supply while you exercise.\.br\ ? \.br\ Imaging tests, such as a CT scan or chest X-ray.\.br\ ? \.br\ Blood tests.\.br\ How is this treated?\.br\ Treatment depends on underlying conditions and how you feel when you experience atrial fibrillation. This condition may be treated with:\.br\ ? \.br\ Medicines to prevent blood clots or to treat heart rate or heart rhythm problems.\.br\ ? \.br\ Electrical cardioversion to reset the heart's rhythm.\.br\ ? \.br\ A pacemaker to correct abnormal heart rhythm.\.br\ ? \.br\ Ablation to remove the heart tissue that sends abnormal signals.\.br\ ? \.br\ Left atrial appendage closure to seal the area where blood clots can form.\.br\ In some cases, underlying conditions will be treated.\.br\ Follow these instructions at home:\.br\ Medicines\.br\ ? \.br\ Take over-the counter and prescription medicines only as told by your health care provider.\.br\ ? \.br\ Do not take any new medicines without talking to your health care provider.\.br\ ? \.br\ If you are taking blood thinners:\.br\ ? \.br\ Talk with your health care provider before you take any medicines that contain aspirin or NSAIDs, such as ibuprofen. These medicines increase your risk for dangerous bleeding.\.br\ ? \.br\ Take your medicine exactly as told, at the same time every day.\.br\ ? \.br\ Avoid activities that could cause injury or bruising, and follow instructions about how to prevent falls.\.br\ ? \.br\ Wear a medical alert bracelet or carry a card that lists what medicines you take.\.br\ Lifestyle\.br\ \.br\ \.br\ ? \.br\ Do not use any products that contain nicotine or tobacco, such as cigarettes, e-cigarettes, and [facility] Family Medicine Office/Clini c Noteon 02-08-2024 [facility] Medicine Office/Clinic Note Chief Complaint 6mo chk up, labs drawn last wk, no rfs, pt requesting copy of labs which were printed and gvn to pt History of Present Illness The patient is here for general health maintenance checkup. The patient recently underwent a cystoscopy and has recently been experiencing hematuria. A UroLift procedure, which he believes may be causing irritation, is scheduled for removal in 02/2024. Despite maintaining a consistent urinary stream, he has been informed that his bladder is irregular and trabeculated, a condition that has persisted for an extended period. Last year, he experienced mild hematuria while mowing his lawn. He has been attempting to increase his water intake to flush his bladder. The patient experiences intermittent episodes of atrial fibrillation, which do not persist for extended periods or induce dyspnea. He reports experiencing dizziness and dyspnea upon standing from a bent position. Has not had any falls. No associated diaphoresis nausea or visual disturbances. Taking diltiazem daily blood pressures are not routinely followed. Patient remains on chronic anticoagulation for the A-fib stable and therapeutic. Denies any reflux esophagitis. Continues pravastatin and labs have been all stable including recent draws which are reviewed today. Review of Systems PHQ Score Initial Depression Screen Score: 0 SCORE see hpi otherwise neg Physical Exam Vitals & Measurements HR: 65(Peripheral) RR: 16 BP: 120/80 SpO2: 94% HT: 72 in HT: 182 cm WT: 84.1 kg WT: 185.02 lb BMI: 25.39 The patient is well groomed and adequately hydrated. The patient's head is normocephalic and he is wearing corrective lenses. His conjunctivae are clear. His oropharynx is pink and moist. The patient's neck is supple. There is no JVD or thyromegaly. The patient's lungs are clear bilaterally. The patient's heart has a regular rate and rhythm. No murmur, gallop, or rub are detected. The patient's abdomen is soft and nontender. No organomegaly is detected. Hyperactive bowel sounds are observed. There is no flank tenderness. The patient is well developed and well nourished. He has a support stocking on the left lower extremity with chronic mild pitting edema. The patient's skin is warm and dry. There are some mild senile purpura on his arms. The patient is cooperative and is insightful. Assessment/Plan 1. Chronic atrial fibrillation (I48.21: Permanent atrial fibrillation) Patient remains fully anticoagulated with rate control continuing on Cardizem. If he continues to have any episodes of dizziness we will need to consider reduction in dose or reviewing Holter monitor. 2. 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 BPH with obstruction/lower urinary tract symptoms (N40.1: Benign prostatic hyperplasia with lower urinary tract symptoms) Patient is under the care of urology currently undergoing further urodynamic testing with anticipated removal of the UroLift anchors with probable need for further prostate treatment 4. Chronic venous insufficiency (I87.2: Venous insufficiency (chronic) (peripheral)) Chronic secondary to previous DVT. Patient wear support stockings on the left limit sodium and keep legs elevated 5. Hyperlipemia, mixed (E78.2: Mixed hyperlipidemia) Maintaining pravastatin moderate intensity lipids are well-controlled no change in treatment regimen attempted to prevent cardiovascular disease risk progression 6. History of venous thrombosis (Z86.718: Personal history of other venous thrombosis and embolism) Patient remains fully anticoagulated with Coumadin INR is therapeutic at 2.49 continue same dosing and repeat value in 6 weeks always avoid activities that could lead to risk of falls or injury with bleeding 7. GERD (gastroesophageal reflux disease) (K21.9: Gastro-esophageal reflux disease without esophagitis) Continue with PPI along with dietary compliance always remain vigilant for dysphagia 8. Overweight (E66.3: Overweight) The standard range for ages 18 and older is >=18.5 and < 25 kg/m2. Your BMI today was above this range, this falls in the overweight to obese category and there are medical benefits to weight loss. We can offer counselling, referral, and/or medical support in addressing this problem. Your BMI and weight management will be followed at subsequent visits. 9. BMI 25.0-25.9,adult (Z68.25: Body mass index [BMI] 25.0-25.9, adult) See #8 Portions of this record may have been created with voice recognition artificial intelligence software, specifically [employer], [employer] and or [facility]. Substitutions may have occurred due to the inherent limitations of voice recognition and artificial intelligence software. Follow-up With When Contact Information Phoebe KENNEDY MD, FAM Within [address] [place], [place] [id number] Additional Instructions: try to set up back to back with medicare exam Patient (more content not included)... Normal [facility] Comment on above: Result Comment: Elec tronically Signed By: Phoebe KENNEDY MD\.br\Date and Time Signed: 02/08/24 15:27 EDT Ambulatory Visit Summaryon 0 02-05-2024 Ambulatory Visit Summary AMEE RAI :1950 Visit Date:02/05/2024 Ambulatory Visit Instructions Your Diagnosis Anticoagulant long-term use BPH with obstruction/lower urinary tract symptoms Chronic atrial fibrillation Chronic venous insufficiency GERD (gastroesophageal reflux disease) History of venous thrombosis Hyperlipemia, mixed Overweight Tests Performed CBC w/ Auto Diff -- Results Pending -- CMP -- Results Pending -- Lipid Panel -- Results Pending -- Please visit your patient portal for your results or contact your primary care physician. Your Care Team Admitting Physician - Phoebe KENNEDY MD Attending Physician - Phoebe KENNEDY MD Primary Care Physician - Phoebe KENNEDY MD This Is Your Medications List calcium carbonate (calcium (as carbonate) 600 mg oral tablet) ciprofloxacin (Cipro 500 mg Tab) diltiazem (diltiazem CD 180 mg/24 hours Cap-ER) omega-3 polyunsaturated fatty acids (Nature's Bounty Red Krill Oil) omeprazole (omeprazole 40 mg Cap-DR) pravastatin (pravastatin 20 mg Tab) warfarin (Coumadin 5 mg Tab) Procedures Performed Transurethral insertion of prostatic urethral lift implant (04/28/2018), Cystoscopy (03/17/2018), Cystoscopy (02/13/2016), Colonoscopy (02/11/2013), Esophagogastroduodenos copy (02/11/2013), Rotator cuff (03/01/2005), [place] filter, device (03/01/1997), Tonsillectomy and adenoidectomy. What to do next Scheduled Follow-Up Appointments Thursday 12:40 PM EDT With: Phoebe KENNEDY MD Where: [facility] Invalid Interpretation Code [address] [place] [address] [place] [address]- \.br\ Thursday 1:00 PM EDT \.br\ With:\.br\ Where: [facility] CBC w/ Auto Diffon 4 Basophils/100 WBC (Bld) 0.3 % Normal 0.0-2.0 [facility] Comment on above: Performed By: #### 2 [id number], [id number], [id number], [id number], [id number] #### [facility] Laboratory [address] [place] [address] Basophils/Leukocyte s Auto (Bld) [Pure # fraction] 0.0 E9/L Normal 0.0-0.2 [facility] Comment on above: Performed By: #### 2 617936, [id number], [id number], [id number], 3148309 #### [facility] Laboratory [address] [place] [address] Eosinophils (Bld) [#/Vol] 0.1 E9/L Normal 0.0-0.5 [facility] Comment on above: Performed By: #### 2 790413, 8082589, 17230248, 5841406, 0827704 #### [facility] Laboratory [address] [place] [address] Eosinophils/100 WBC (Bld) 1.3 % Normal 0.0-8.0 [facility] Comment on above: Performed By: #### 2 284267, 7433660, 24126481, 3225706, 7620326 #### [facility] Laboratory [address] [place] [address] Erythrocyte distribution width (RBC) [Ratio] 14.1 % Normal 10.9-14.2 [facility] Comment on above: Performed By: #### 2 947952, 9847728, 10602086, 2536425, 4791293 #### [facility] Laboratory [address] [place] [address] Hematocrit (Bld) [Volume fraction] 43.7 % Normal 37.7-49.0 [facility] Comment on above: Performed By: #### 2 957650, 1158445, 76153565, 9425239, 2684823 #### [facility] Laboratory [address] [place] [address] Hemoglobin (Bld) [Mass/Vol] 14.9 g/dL Normal 13.5-17.5 [facility] Comment on above: Performed By: #### 2 492377, 6931990, 76413223, 9914941, 8154863 #### [facility] Laboratory [address] [place] [address] Lymphocytes (Bld) [#/Vol] 0.9 E9/L Low 1.0-4.0 [facility] Comment on above: Performed By: #### 2 378424, 4110954, 70736982, 5843777, 1694109 #### [facility] Laboratory [address] [place] [address] Lymphocytes/100 WBC (Bld) 16.5 % Normal 14.0-50.0 [facility] Comment on above: Performed By: #### 2 116695, 9194319, 05717869, 0889017, 8993860 #### [facility] Laboratory [address] [place] [address] MCH (RBC) [Entitic mass] 33.7 pg Normal 27.0-34.0 [facility] Comment on above: Performed By: #### 2 009524, 6234235, 36874283, 7920305, 5172586 #### [facility] Laboratory [address] [place] [address] MCHC (RBC) [Mass/Vol] 34.0 g/dL Normal 31.4-36.0 [facility] Comment on above: Performed By: #### 2 692780, 7332710, 62733355, 7582889, 1379024 #### [facility] Laboratory [address] [place] [address] MCV (RBC) [Entitic vol] 98.9 fL Normal 80.0-100.0 [facility] Comment on above: Performed By: #### 2 468922, 2281229, 15059870, 3031189, 1015759 #### [facility] Laboratory [address] [place] [address] Monocytes (Bld) [#/Vol] 0.4 E9/L Normal 0.2-1.0 [facility] Comment on above: Performed By: #### 2 708374, 9996444, 99357052, 7354803, 0110940 #### [facility] Laboratory [address] [place] [address] Neutrophils (Bld) [#/Vol] 4.3 E9/L Normal 2.0-7.5 [facility] Comment on above: Performed By: #### 2 261509, 7473026, 31149365, 6804326, 9436269 #### [facility] Laboratory [address] [place] [address] Neutrophils/100 WBC (Bld) 75.4 % High 36.0-75.0 [facility] Comment on above: Performed By: #### 2 043543, 9129607, 08552099, 6801159, 7640072 #### [facility] Laboratory [address] [place] [address] Platelet mean volume (Bld) [Entitic vol] 7.6 fL Normal 6.4-10.8 [facility] Comment on above: Performed By: #### 2 603126, 9195068, 47588633, 9301810, 5334669 #### [facility] Laboratory [address] [place] [address] Platelets (Bld) [#/Vol] 210.0 E9/L Normal 150.0-500.0 [facility] Comment on above: Performed By: #### 2 026527, 7551572, 93958948, 3245225, 4847604 #### [facility] Laboratory [address] [place] [address] RBC (Bld) [#/Vol] 4.4 E12/L Normal 4.3-5.9 [facility] Comment on above: Performed By: #### 2 543352, 8994076, 56232815, 3951969, 9925674 #### [facility] Laboratory [address] [place] [address] WBC corrected for nucl RBC Auto (Bld) [#/Vol] 5.7 E9/L Normal 4.0-11.0 [facility] Comment on above: Performed By: #### 2 438553, 8942682, 77323496, 2025596, 7460442 #### [facility] Laboratory [address] [place] [address] CHEMISTRYOrdered By: SYSTEM SYSTEM on 02-05-2024 Albumin [Mass/Vol] 4.4 g/dL Normal 3.3 - 5.0 gm/dL R emisol Chem Albumin/Globulin [Mass ratio] 2.1 {ratio} Normal 1.1 - 2.2 Remisol Chem ALP [Catalytic activity/Vol] 43 [iU]/d Normal 21 - 98 Int._Unit/L Remisol Chem ALT No additional P-5'-P [Catalytic activity/Vol] 20 [iU]/d Normal 6 - 46 Int._Unit/L Remisol Chem Anion gap [Moles/Vol] 9 mmol/L Normal 6 - 16 mEq/L Remisol Chem AST [Catalytic activity/Vol] 19 [iU]/d Normal 5 - 43 Int._Unit/L Remisol Chem Bilirubin [Mass/Vol] 0.6 mg/dL Normal 0.0 - 1.1 mg/dL Remisol Chem Calcium [Mass/Vol] 9.1 mg/dL Normal 8.9 - 11.1 mg/dL Remisol Chem Chloride [Moles/Vol] 106 mmol/L Normal 101 - 111 mmol/L Remisol Chem Cholesterol [Mass/Vol] 127 mg/dL Normal 120 - 200 mg/dL Remisol Chem Cholesterol in HDL [Mass/Vol] 53 mg/dL Invalid Interpretation Code Remisol Chem Comment on above: Result Comment: '>= 60 LOW RISK' '<= 40 HIGH RISK' Cholesterol in LDL [Mass/Vol] 64 mg/dL Normal <=129mg/dL Remisol Chem Cholesterol in VLDL [Mass/Vol] 15 mg/dL Normal 7 - 40 mg/dL Remisol Chem CO2 [Moles/Vol] 29 mmol/L Normal 21 - 31 mmol/L Remis ol Chem Creatinine [Mass/Vol] 1.0 mg/dL Normal 0.5 - 1.3 mg/dL Remisol Chem eGFR 79 mL/min/1.73 m2 Normal >=59mL/min/1.73 m2 Remisol Chem Globulin (S) [Mass/Vol] 2.1 g/dL Normal 1.4 - 4.0 gm/dL Remisol Chem Glucose [Mass/Vol] 88 mg/dL Normal 55 - 199 mg/dL Re misol Chem Potassium [Moles/Vol] 4.2 mmol/L Normal 3.5 - 5.3 mmol/L Remisol Chem Protein [Mass/Vol] 6.5 g/dL Normal 6.0 - 7.8 gm/dL R emisol Chem Sodium [Moles/Vol] 140 mmol/L Normal 135 - 145 mmol/L Remisol Chem Triglyceride [Mass/Vol] 73 mg/dL Normal <=149mg/dL Remisol Chem Urea nitrogen [Mass/Vol] 16 mg/dL Normal 5 - 21 mg/dL Remisol Chem Urea nitrogen/Creatinine [Mass ratio] 16 mg/mg Normal 10 - 20 Remisol Chem CMPon 02-05-2024 Albumin [Mass/Vol] 4.4 g/dL Normal 3.3-5.0 [facility] Comment on above: Performed By: #### 2 [id number], 4720178, [id number], 4017761, 4613088 ####[facility] [address] [place] [address] Albumin/Globulin (S) [Mass conc ratio] 2.1 Normal 1.1-2.2 [facility] Comment on above: Performed By: #### 2 757374, 5497665, 33912583, 1912513, 6314749 ####[facility] [address] [place] [address] ALP [Catalytic activity/Vol] 43 Int._Unit/L Normal 21-98 [facility] Comment on above: Performed By: #### 2 413007, 8036080, [id number], 2599905, 1770344 ####[facility] [address] [place] [address] ALT No additional P-5'-P [Catalytic activity/Vol] 20 Int._Unit/L Normal 6-46 [facility] Comment on above: Performed By: #### 2 000046, 6715079, 33076691, 1407710, 5627747 ####[facility] [address] [place] [address] Anion gap [Moles/Vol] 9 mmol/L Normal 6-16 [facility] Comment on above: Performed By: #### 2 727245, 9406356, [id number], 3669223, 2085937 ####[facility] [address] [place] [address] AST [Catalytic activity/Vol] 19 Int._Unit/L Normal 5-43 [facility] Comment on above: Performed By: #### 2 776517, 3822773, 81860424, 3334564, 2460064 ####[facility] [address] [place] [address] Bilirubin [Mass/Vol] 0.6 mg/dL Normal 0.0-1.1 [facility] Comment on above: Performed By: #### 2 178321, 3705459, 84554150, 6707789, 4483018 ####[facility] [address] [place] [address] Calcium [Mass/Vol] 9.1 mg/dL Normal 8.9-11.1 [facility] Comment on above: Performed By: #### 2 469414, 3040847, 23463738, 7399668, 1984363 ####[facility] [address] [place] [address] Chloride [Moles/Vol] 106 mmol/L Normal 101-111 [facility] Comment on above: Performed By: #### 2 591926, 9825635, 04190079, 0073984, 0794704 ####[address] [address] CO2 [Moles/Vol] 29 mmol/L Normal 21-31 [facility] Comment on above: Performed By: #### 2 594231, 9322734, 68482316, 5358395, 4919968 ####[facility] [address] [place] [address] Creatinine [Mass/Vol] 1.0 mg/dL Normal 0.5-1.3 [facility] Comment on above: Performed By: #### 2 573228, 3270440, 03298555, 3009643, 4003764 ####[facility] [address] [place] [address] Globulin (S) [Mass/Vol] 2.1 g/dL Normal 1.4-4.0 [facility] Comment on above: Performed By: #### 2 686622, 8682178, 34325152, 7945682, 3212334 ####[facility] [address] [place] [address] Glucose [Mass/Vol] 88 mg/dL Normal 55-199 [facility] Comment on above: Performed By: #### 2 796743, 2578609, 03651245, 1465812, 8689393 ####[address] [place] [address] Potassium [Moles/Vol] 4.2 mmol/L Normal 3.5-5.3 [facility] Comment on above: Performed By: #### 2 330628, 2930736, 32545633, 5927109, 5170078 ####[facility] [address] [place] [address] Protein [Mass/Vol] 6.5 g/dL Normal 6.0-7.8 [facility] Comment on above: Performed By: #### 2 899944, 6375139, 67485156, 4757538, 1786106 ####[facility] [address] [place] [address] Sodium [Moles/Vol] 140 mmol/L Normal 135-145 [facility] Comment on above: Performed By: #### 2 370331, 0195825, 14652246, 8185978, 3362578 ####[facility] [address] [place] [address] Urea nitrogen [Mass/Vol] 16 mg/dL Normal 5-21 [facility] Comment on above: Performed By: #### 2 060811, 0182436, 16473074, 0883419, 6675873 ####[facility] [address] [place] [address] Urea nitrogen/Creatinine [Mass ratio] 16 No Units Normal 10-20 [facility] Comment on above: Performed By: #### 2 607470, 7254348, 80851806, 9227849, 3987675 ####[facility] [address] [place] [address] COAGULATIONOrdered By: Christiano Reich on 02-05-2024 INR Coag (PPP) [Relative time] 2.49 {INR} Invalid Interpretation Code [facility] Auto Coag Comment on above: Interpretive Data: I NR results are specifically intended to assess patients stabilized on long-term Anticoagulation therapy suggested INR s Less Intensive Anticoagulation 2.0 3.0 Conventional Range 3.0 4.5 PT Coag (PPP) [Time] 28.1 s High 9.4 - 12.5 second(s) [facility] Auto Coag Comment on above: Interpretive Data: 1 5 days - 4 weeks 1 - 5 months 6 -11 months 1-5 years 6-10 years 11 -17 years Mean: 11.2 (9.5-12.6) Mean: 11.0 (9.7-12.8) Mean: 11.0 (9.8-13.0) Mean: 11.3 (9.9-13.4) Mean: 11.7 (10.0-14.6) Mean: 11.8 (10.0 - 14.1) Pediatric Reference ranges were obtained from a study by Juventino Golden et al. prepared from 1437 samples obtained at 7 different centers using the same coagulation reagent and instrumentation as [facility]. Currently there are no coagulation studies available worldwide for children to 14 days, and no normal ranges. HEMATOLOGYOrdered By: SYSTEM SYSTEM on 02-05-2024 Basophils/100 WBC (Bld) 0.3 % Normal 0.0 - 2.0 % Remisol Heme Basophils/Leukocyte s Auto (Bld) [Pure # fraction] 0.0 E9/L Normal 0.0 - 0.2 E9/L Remisol Heme Eosinophils (Bld) [#/Vol] 0.1 E9/L Normal 0.0 - 0.5 E9/L Remisol Heme Eosinophils/100 WBC (Bld) 1.3 % Normal 0.0 - 8.0 % Remisol Heme Erythrocyte distribution width (RBC) [Ratio] 14.1 % Normal 10.9 - 14.2 % Remisol Heme Hematocrit (Bld) [Volume fraction] 43.7 % Normal 37.7 - 49.0 % Remisol Heme Hemoglobin (Bld) [Mass/Vol] 14.9 g/dL Normal 13.5 - 17.5 gm/dL Remisol Heme Lymphocytes (Bld) [#/Vol] 0.9 E9/L Low 1.0 - 4.0 E9/L Remisol Heme Lymphocytes/100 WBC (Bld) 16.5 % Normal 14.0 - 50.0 % Remisol Heme MCH (RBC) [Entitic mass] 33.7 pg Normal 27.0 - 34.0 pg Remisol Heme MCHC (RBC) [Mass/Vol] 34.0 g/dL Normal 31.4 - 36.0 gm/dL Remisol Heme MCV (RBC) [Entitic vol] 98.9 fL Normal 80.0 - 100.0 fL Remisol Heme Monocytes (Bld) [#/Vol] 0.4 E9/L Normal 0.2 - 1.0 E9/L Remisol Heme Monocytes/100 WBC (Bld) 6.5 % Normal 4.0 - 14.0 % Remisol Heme Neutrophils (Bld) [#/Vol] 4.3 E9/L Normal 2.0 - 7.5 E9/L Remisol Heme Neutrophils/100 WBC (Bld) 75.4 % High 36.0 - 75.0 % Remisol Heme Platelet mean volume (Bld) [Entitic vol] 7.6 fL Normal 6.4 - 10.8 fL Remisol Heme Platelets (Bld) [#/Vol] 210.0 E9/L Normal 150.0 - 500.0 E9/L Remisol Heme RBC (Bld) [#/Vol] 4.4 E12/L Normal 4.3 - 5.9 E12/L Re misol Heme WBC corrected for nucl RBC Auto (Bld) [#/Vol] 5.7 E9/L Normal 4.0 - 11.0 E9/L Remisol Heme Lipid Panelon 02-05-2024 Cholesterol [Mass/Vol] 127 mg/dL Normal 120-200 [facility] Comment on above: Performed By: #### 2 257543, 5950598, 00543353, 9705761, 0516990 ####[facility] [address] [place] [address] Cholesterol in HDL [Mass/Vol] 53 mg/dL Invalid Interpretation Code [facility] Comment on above: Result Comment: '>= 60 LOW RISK' '<= 40 HIGH RISK' Performed By: #### 2 961024, 5247667, 08111514, 6268549, 7293003 ####[facility] [address] [place] [address] Cholesterol in LDL [Mass/Vol] 64 mg/dL Normal <=129 [facility] Comment on above: Performed By: #### 2 123589, 7788277, 02954016, 9979281, 7632998 ####[facility] [address] [place] [address] Cholesterol in VLDL [Mass/Vol] 15 mg/dL Normal 7-40 [facility] Comment on above: Performed By: #### 2 147397, 7180587, 95963247, 3956968, 4047576 ####[facility] [address] [place] [address] Triglyceride [Mass/Vol] 73 mg/dL Normal <=149 [facility] Comment on above: Performed By: #### 2 530515, 8775658, 01912423, 7973867, 9401016 ####[facility] [address] [place] [address] Nurse Consultation Noteon Nurse Consultation Note Reason for Visit LABS Assessment/Plan Anticoagulant long-term use (Z79.01: jail (current) use of anticoagulants) BPH with obstruction/lower urinary tract symptoms (N40.1: Benign prostatic hyperplasia with lower urinary tract symptoms) Chronic atrial fibrillation (I48.21: Permanent atrial fibrillation) Chronic venous insufficiency (I87.2: Venous insufficiency (chronic) (peripheral)) GERD (gastroesophageal reflux disease) (K21.9: Gastro-esophageal reflux disease without esophagitis) History of venous thrombosis (Z86.718: Personal history of other venous thrombosis and embolism) Hyperlipemia, mixed (E78.2: Mixed hyperlipidemia) Overweight (E66.3: Overweight) Medications calcium (as carbonate) 600 mg oral tablet, 600 mg= 1 tab(s), Oral, Daily Cipro 500 mg Tab, 500 mg= 1 tab(s), Oral, Daily Coumadin 5 mg Tab, 5 mg= 1 tab(s), Oral, Daily, 1 refills diltiazem CD 180 mg/24 hours Cap-ER, 180 mg= 1 cap(s), Oral, Daily, 1 refills Nature's Bounty Red Krill Oil, 1200, Oral, BID omeprazole 40 mg Cap-DR, 40 mg= 1 cap(s), Oral, Daily, 1 refills pravastatin 20 mg Tab, 20 mg= 1 tab(s), Oral, Bedtime, 1 refills Allergies No Known Allergies Immunizations Vaccine Date Status Comments influenza virus vaccine, inactivated 07/03/2023 Given Early/Late Reason: Nursing Judgment diphtheria/pertussis, acel/tetanus adult 01/30/2023 Given SARS-CoV-2 (COVID-19) mRNA-1273 vaccine 07/16/2022 Given influenza virus vaccine, inactivated 07/04/2022 Given influenza virus vaccine, inactivated 07/04/2022 Recorded SARS-CoV-2 (COVID-19) mRNA-1273 vaccine 02/14/2022 Recorded influenza virus vaccine, inactivated 07/22/2021 Given SARS-CoV-2 (COVID-19) mRNA-1273 vaccine 07/22/2021 Recorded SARS-CoV-2 (COVID-19) mRNA-1273 vaccine 11/10/2020 Recorded gvn in [place] SARS-CoV-2 (COVID-19) mRNA-1273 vaccine 10/13/2020 Recorded gvn in [place] influenza virus vaccine, inactivated 07/06/2020 Given influenza virus vaccine, inactivated 07/15/2019 Given Nursing Judgment influenza virus vaccine, inactivated 02/09/2019 Recorded influenza virus vaccine, inactivated 07/12/2018 Recorded pneumococcal 23-valent vaccine 09/03/2017 Recorded pneumococcal 23-valent vaccine 09/03/2017 Recorded influenza virus vaccine, inactivated 07/06/2017 Recorded influenza virus vaccine, inactivated 06/25/2016 Recorded pneumococcal 13-valent vaccine 07/26/2015 Recorded pneumococcal 13-valent vaccine 07/26/2015 Recorded zoster vaccine live 06/06/2011 Recorded zoster vaccine live 06/06/2011 Recorded Normal [facility] PTon 02-05-2024 INR Coag (PPP) [Relative time] 2.49 {INR} Invalid Interpretation Code [facility] Comment on above: Result Comment: INR results are specifically intended to assess patients stabilized on long-term Anticoagulation therapy suggested INR?s ?Less Intensive Anticoagulation? 2.0 ? 3.0 Conventional Range 3.0 ? 4.5 Performed By: #### 2 419250, 9036041, 74680887, 7832770, 8511407 #### [facility] Laboratory [address] [place] [address] PT Coag (PPP) [Time] 28.1 second(s) High 9.4-12.5 [facility] Comment on above: Result Comment: 15 d ays - 4 weeks 1 - 5 months 6 -11 months 1- 5 years 6-10 years 11 -17 years Mean: 11.2 (9.5-12.6) Mean: 11.0 (9.7-12.8) Mean: 11.0 (9.8-13.0) Mean: 11.3 (9.9-13.4) Mean: 11.7 (10.0-14.6) Mean: 11.8 (10.0 - 14.1) Pediatric Reference ranges were obtained from a study by Juventino Golden et al. prepared from 1437 samples obtained at 7 different centers using the same coagulation reagent and instrumentation as [facility]. Currently there are no coagulation studies available worldwide for children to 14 days, and no normal ranges. Performed By: #### 2 824607, 7470986, 73397065, 3613984, 7452491 #### [facility] [address] [place] [address] Patient Educationon 02-05-20 24 Patient Education Cardiovascular Atrial Fibrillation Atrial fibrillation is a type of irregular or rapid heartbeat (arrhythmia). In atrial fibrillation, the top part of the heart (atria) beats in an irregular pattern. This makes the heart unable to pump blood normally and effectively. The goal of treatment is to prevent blood clots from forming, control your heart rate, or restore your heartbeat to a normal rhythm. If this condition is not treated, it can cause serious problems, such as a weakened heart muscle (cardiomyopathy) or a stroke. What are the causes? This condition is often caused by medical conditions that damage the heart's electrical system. These include: ? High blood pressure (hypertension). This is the most common cause. ? Certain heart problems or conditions, such as heart failure, coronary artery disease, heart valve problems, or heart surgery. ? Diabetes. ? Overactive thyroid (hyperthyroidism). ? Obesity. ? Chronic kidney disease. In some cases, the cause of this condition is not known. What increases the risk? This condition is more likely to develop in: ? Older people. ? People who smoke. ? Athletes who do endurance exercise. ? People who have a family history of atrial fibrillation. ? Men. ? People who use drugs. ? People who drink a lot of alcohol. ? People who have lung conditions, such as emphysema, pneumonia, or COPD. ? People who have obstructive sleep apnea. What are the signs or symptoms? Symptoms of this condition include: ? A feeling that your heart is racing or beating irregularly. ? Discomfort or pain in your chest. ? Shortness of breath. ? Sudden light-headedness or weakness. ? Tiring easily during exercise or activity. ? Fatigue. ? Syncope (fainting). ? Sweating. In some cases, there are no symptoms. How is this diagnosed? Your health care provider may detect atrial fibrillation when taking your pulse. If detected, this condition may be diagnosed with: ? An electrocardiogram (ECG) to check electrical signals of the heart. ? An ambulatory case monitor to record your heart's activity for a few days. ? A transthoracic echocardiogram (TTE) to create pictures of your heart. ? A transesophageal echocardiogram (RAPHAEL) to create even closer pictures of your heart. ? A stress test to check your blood supply while you exercise. ? Imaging tests, such as a CT scan or chest X-ray. ? Blood tests. How is this treated? Treatment depends on underlying conditions and how you feel when you experience atrial fibrillation. This condition may be treated with: ? Medicines to prevent blood clots or to treat heart rate or heart rhythm problems. ? Electrical cardioversion to reset the heart's rhythm. ? A pacemaker to correct abnormal heart rhythm. ? Ablation to remove the heart tissue that sends abnormal signals. ? Left atrial appendage closure to seal the area where blood clots can form. In some cases, underlying conditions will be treated. Follow these instructions at home: Medicines ? Take over-the counter and prescription medicines only as told by your health care provider. ? Do not take any new medicines without talking to your health care provider. ? If you are taking blood thinners: ? Talk with your health care provider before you take any medicines that contain aspirin or NSAIDs, such as ibuprofen. These medicines increase your risk for dangerous bleeding. ? Take your medicine exactly as told, at the same time every day. ? Avoid activities that could cause injury or bruising, and follow instructions about how to prevent falls. ? Wear a medical alert bracelet or carry a card that lists what medicines you take. Lifestyle ? Do not use any products that contain nicotine or tobacco, such as cigarettes, e-cigarettes, and chewing tobacco. If you need help quitting, ask your health care provider. ? Eat heart-healthy foods. Talk with a dietitian to make an eating plan that is right for you. ? Exercise regularly as told by your health care provider. ? Do not drink alcohol. ? Lose weight if you are overweight. ? Do not use drugs, including cannabis. General instructions ? If you have obstructive sleep apnea, manage your condition as told by your health care provider. ? Do not use diet pills unless your health care provider approves. Diet pills can make heart problems worse. ? Keep all follow-up visits as told by your health care provider. This is important. Contact a health care provider if you: ? Notice a change in the rate, rhythm, or strength of your heartbeat. ? Are taking a blood thinner and you notice more bruising. ? Tire more easily when you exercise or do heavy work. ? Have a sudden change in weight. Get help right away if you have: ? Chest pain, abdominal pain, sweating, or weakness. ? Trouble breathing. (more content not included)... Normal [facility] eGFRon 02-05-2024 eGFR 79 mL/min/1.73 m2 Normal >=59 [facility] Comment on above: Order Comment: Order added by Discern Expert. Performed By: #### 2 987337, 4238630, 30216667, 5154528, 8171554 ####[address] [place] [address] Consent for Procedure/Surger yon 02-02-2024 Consent for Procedure/Surgery [id number] 00TIFF [facility] Consent for Treatmenton Consent for Treatment [id number] 0TIFF [facility] IntraOperative Documentson 0 02-02-2024 IntraOperative Documents [id number]. 00TIFF Normal [facility] Main OR Intraoperative Recor don 02-02-2024 Main OR Intraoperative Record IntraOp Document Type FTURO Summary Primary Physician: [place] CARTAGENA MD Finalized Date/Time: 02/02/24 08:20:53 Pt. Name: AMEE RAI Ramírez/Sex: 1950 Male Med Rec #: [id number] Physician: [place] CARTAGENA MD Financial #: [id number] Pt. Type: O Room/Bed: / Admit/Disch: 02/02/24 07:14:33 - Institution: Case Times FTURO Entry 1 Patient Times In Room 02/02/24 08:03:00 Out Room 02/02/24 08:20:00 Procedure Times Start 02/02/24 08:11:00 Stop 02/02/24 08:18:00 Anesthesia Times Last Modified By: Ale Hale 02/02/24 08:20:47 Case Attendance FTURO Entry 1 Entry 2 Entry 3 Case Attendee [place] CARTAGENA MD, Kelsie E Miller, Laura C Role Performed Surgeon - Primary Yard General Car Supervisor - Primary Scrub - Primary Time In 02/02/24 08:03:00 02/02/24 08:03:00 02/02/24 08:03:00 Time Out 02/02/24 08:20:00 02/02/24 08:20:00 02/02/24 08:20:00 Procedure CYSTOSCOPY LOCAL(.) CYSTOSCOPY LOCAL(.) CYSTOSCOPY LOCAL(.) Comments Last Modified By: Ale Hale Kelsie E Burgderfer, Kelsie E 02/02/24 08:20:48 02/02/24 08:20:48 02/02/24 08:20:48 Surgical Procedures FTURO Entry 1 Procedure Description Procedure CYSTOSCOPY LOCAL Modifiers . Surgeon Description CYSTO WITH A FISH IN CYTOLOGY Primary Procedure Yes Primary Surgeon [place] CARTAGENA MD Start 02/02/24 08:11:00 Stop 02/02/24 08:18:00 Anesthesia Type Local Surgical Service Urology Wound Class 2 - Clean-Contaminated Last Modified By: Ale Hale 02/02/24 08:19:08 General Case Data FTURO Pre-Care Text: Classifies surgical wound, implements aseptic technique, initiates traffic control Entry 1 Case Information OR URO 1 FT Case Level None Wound Class 2 - Clean-Contaminated Specialty Urology Preop Diagnosis GROSS HEMATURIA, FAMILY Postop Same As Preop Yes HX OF PROSTATE CANCER Postop Diagnosis GROSS HEMATURIA, FAMILY Outcomes Met? Yes HX OF PROSTATE CANCER Last Modified By: Ale Hale 02/02/24 08:00:15 Post-Care Text: The patient is free from signs and symptoms of infection EU IntraOp - FTURO Pre-Care Text: Implements protective measures prior to operative or invasive procedure, confirms identity before the operative or invasive procedure, verifies operative procedure, surgical site, and laterality Entry 1 EU Perioperative Protocols Procedure(s) CYSTOSCOPY LOCAL(.) Patient Identity Birthday, ID Band Verified (select at Check, Patient least 2): Participation Consents / H and P HandP, Surgery/Procedure Operative Site N/A Verified Consent Marking Verified Surgical Site Yes Laterality Verified n/a Verified Procedure Verified Yes Correct Patient Yes Position Verified Availability Equipment, Medication Time Out FARTUN ROMERO, Montana Dorado, Verified (If Participants Ale Hale, Applicable) Samia Marti Time Out Complete 02/02/24 08:08:00 Allergies Reviewed? Yes Allergies Reviewed Self/Patient With Body Position Supine Prep Area penis Prep Agents Betadine Solution Skin. Condition Intact, [place], Warm, and Dry Additional FISH Specimens Collected Vitals - EU Blood Pressure 152/87 Pulse 89 bpm Respirations 16 br/min SPO2 97 % EBL 0 IandO - EU Total Intake 0 mL Total Output 0 mL Outcomes Met? Yes Last Modified By: Ale Hale 02/02/24 08:09:56 Post-Care Text: The patient is free from signs and symptoms of injury caused by extraneous objects Sign Out FTURO Entry 1 Before Patient Leaves OR Nurse verbally Yes Nurse verbally n/a confirms with the confirms with the team the name of team that the procedure(s) instrument, sponge, recorded and needle counts are correct (or N/A) Nurse verbally Yes Nurse verbally Yes confirms with the confirms with the team how the team whether there specimen is labeled are any equipment (including patient problems to be name), if applicable addressed Sign Out Complete 02/02/24 08:18:00 Last Modified By: Ale Hale 02/02/24 08:18:51 Case Comments Finalized By: Ale Hale Document Signatures Signed By: Ale Hale 02/02/24 08:20 Ale Hale 02/02/24 08:20 Normal [facility] Main OR Preoperative Recordo n 02-02-2024 Main OR Preoperative Record Holding Area Document Type FTURO Summary Primary Physician: Montana CATRAGENA MD Finalized Date/Time: 02/02/24 07:30:36 Pt. Name: AMEE RAI Christopher Elmore/Sex: 1950 Male Med Rec #: [id number] Physician: [place] CARTAGENA MD Financial #: [id number] Pt. Type: O Room/Bed: / Admit/Disch: 02/02/24 07:14:33 - Institution: Case Times Holding FTURO Pre-Care Text: Verifies consent for planned procedure, identifies individual values and wishes concerning care, includes family members in perioperative teaching Secures patient's records' belongings, and valuables, maintains patient's dignity and privacy, and maintains patient confidentiality Entry 1 In Holding 02/02/24 07:27:00 Outcomes Met? Yes Last Modified By: Nimo Green RN 02/02/24 07:27:48 Post-Care Text: The patient participates in decisions affecting his or her perioperative plan of care The patient's right to privacy is maintained Surgery Checklist FTURO Entry 1 Patient Birthday, ID Band Procedure History and Physical, Identification: Check, Patient Verification: Surgical Consent, With Participation Patient NPO after Midnight: n/a Personal Items: Glasses, Jewelry Personal Items GLASSES; RING X 1 Limitations: UP AD MAI Comment: Complaints of Pain: No Pain Comment: 0/10 Skin Integrity Dry, Warm Vitals - EU Blood Pressure 152/87 Pulse 89 bpm Respirations 16 br/min SPO2 97 % Additional FISH, Other (See Specimens Comment PORTION OF Specimens Collected Comment) FISH/CYTOLOGY - NOT ENOUGH TO COMPLETE TEST - WILL GET REST WITH CYSTO RN Reviewed Yes Last Modified By: Nimo Green RN 02/02/24 07:30:31 Finalized By: Nimo Green RN Document Signatures Signed By: Nimo Green RN 02/02/24 07:30 Normal [facility] Operative Reporton Operative Report Patient: TALI RAI Age: 73 years Sex: Male : 1950 Associated Diagnoses: None Author: [place] CARTAGENA MD Procedure Operative Information Details: Date/ Time: 02/02/2024 09:13:00. Pre-Op Dx: Gross Hematuria - R31.0, BPH w/ LUTS - N40.1, Incomplete Bladder Emptying - R39.14. Post-Op Dx: Same. Anesthesia Type: Local. Procedure: Local Cystoscopy. Complications: None. Risks/Benefits/Informe d Consent: Surgical risks, benefits, details of the procedure have been explained to the patient, Full informed consent has been obtained. Intraoperative Information Prepped: Patient is brought back to the endoscopy suite, Patient is placed in supine position, Patient prepped in the usual fashion with Betadine solution, 2% Xylocaine Jelly is placed per Urethra, After waiting several minutes the Cystoscope is introduced. The Urethra is: Normal. The Prostatic Urethra is: Obstructed, prostate is bleeding at this site.. The Bladder is: Abnormal, Trabeculated (Severe (3), multiple open deep tics. no b.t. on retroflex, urolift band seen in bladder at right side near neck, no b.t.). The ureteral orifices: Show efflux of clear urine. Specimens Removed: Bladder wash sent for FISH and Cytology test. Devices Implanted: None. Removal: Cystoscope is removed, The patient tolerated it well. Postoperative Information Discharge: Patient is discharged home with antibiotic coverage, Follow up arranged. will do urodynamics and then may do a turp. Normal [facility] Comment on above: Result Comment: Elec tronically Signed By: [place] CARTAGENA MD\.br\Date and Time Signed: 02/02/24 09:15 EDT Outpatient Surgery Discharge Instructionon 02-02-2024 Outpatient Surgery Discharge Instruction [id number]. 00TIFF Normal [facility] UroVysion Fish and Urine Cyt o ([facility])on 02-02-2024 [facility] Method of Extraction Voided Normal [facility] Comment on above: Performed By: #### 1 [id number] #### [facility] Laboratory [address] [place] [address] [facility] Number of Jars 1 Invalid Interpretation Code [facility] Comment on above: Performed By: #### 1 [id number] #### [facility] Laboratory [address] [place] [address] [facility] Specimen Urine Normal [facility] Comment on above: Performed By: #### 1 [id number] #### [facility] Laboratory [address] [place] [address] [facility] Type of Service Technical Only Normal [facility] Comment on above: Performed By: #### 1 [id number] #### [facility] Laboratory [address] [place] [address] Lab Reportson 12-01-2023 Lab Reports [id number] 0TIFF Normal [facility] Auth for Release of Medical Recordson 10-26-2023 Auth for Release of Medical Records [id number]#1.0 0TIFF Normal [facility] Lab Reportson 10-08-2023 Lab Reports [id number]#1.0 0TIFF Normal [facility] Lab Reportson 10-04-2023 Lab Reports [id number] 0TIFF Normal [facility] Consent for Treatmenton 06-30 Consent for Treatment [id number] 0TIFF Normal [facility] US Renalon 07-28-2023 US Renal Exam Date/Time: 07/28/2023 06:56 EDT Reason for Exam: R31.0;Hematuria Report IMPRESSION: 2.3 CM CYST FROM UPPER POLE OF THE RIGHT KIDNEY. OTHERWISE, NEGATIVE ULTRASOUND OF THE KIDNEYS. CLINICAL HISTORY: Hematuria, R31.0. Gross hematuria, one time and summer. COMPARISON: NONE. COMMENT: Sonogram of the both kidneys was done. The right kidney measures approximately 10.7 cm in length, with renal cortical thickness of approximately 1.4 cm. The left kidney measures approximately 11.0 cm in length, with renal cortical thickness of approximately 1.1 cm. Both kidneys have a normal sonographic appearance. 2.3 cm cyst from upper pole of the right kidney. There is no hydronephrosis. There is symmetrical color flow into the both kidneys. Ordering Provider: [place] CARTAGENA FINAL REPORT Dictated: 07/28/2023 11:19 am James Mathews M.D. Signed (Electronic Signature): 07/28/2023 11:19 am Signed by: James Mathews M.D. Transcribed by: LILLIANA Technologist: ONEL Perez [facility] Ambulatory Visit Summaryon 1 Ambulatory Visit Summary AMEE RAI :1950 Visit Date:07/24/2023 Ambulatory Visit Instructions Your Diagnosis BPH with obstruction/lower urinary tract symptoms Gross hematuria Family history of prostate cancer Screening PSA (prostate specific antigen) Anticoagulated Tests Performed Urnls Dip Stick Auto w/o Microscopy POC [id number] Your Care Team Attending Physician - [place] CARTAGENA MD Primary Care Physician - Phoebe KENNEDY MD This Is Your Medications List Contact prescribing physician if questions or concerns calcium carbonate (calcium (as carbonate) 600 mg oral tablet) diltiazem (diltiazem CD 180 mg/24 hours Cap-ER) omega-3 polyunsaturated fatty acids (Nature's Bounty Red Krill Oil) omeprazole (omeprazole 40 mg Cap-DR) pravastatin (pravastatin 20 mg Tab) warfarin (Coumadin 5 mg Tab) Procedures Performed Transurethral insertion of prostatic urethral lift implant (04/28/2018), Cystoscopy (03/17/2018), Cystoscopy (02/13/2016), Colonoscopy (02/11/2013), Esophagogastroduodenos copy (02/11/2013), Rotator cuff (03/01/2005), Cambridge filter, device (03/01/1997), Tonsillectomy and adenoidectomy. Discharge Vitals Heart Rate (Peripheral) 65 Respiratory Rate 16 Blood Pressure 131/76 Height 182 cm Height 72 in Weight 80 kg Weight 176 lb BMI 24.15 What to do next Scheduled Follow-Up Appointments Thursday 8:20 AM EDT With: Where: [facility] Invalid Interpretation Code [address] [place] [address]- \.br\ Thursday 1:00 PM EDT \.br\ With:\.br\ Where: [facility] Patient Educationon 07-24-20 23 Patient Education Urology Hematuria, Adult Hematuria is blood in the urine. Blood may be visible in the urine, or it may be identified with a test. This condition can be caused by infections of the bladder, urethra, kidney, or prostate. Other possible causes include: ? Kidney stones. ? Cancer of the urinary tract. ? Too much calcium in the urine. ? Conditions that are passed from parent to child (inherited conditions). ? Exercise that requires a lot of energy. Infections can usually be treated with medicine, and a kidney stone usually will pass through your urine. If neither of these is the cause of your hematuria, more tests may be needed to identify the cause of your symptoms. It is very important to tell your health care provider about any blood in your urine, even if it is painless or the blood stops without treatment. Blood in the urine, when it happens and then stops and then happens again, can be a symptom of a very serious condition, including cancer. There is no pain in the initial stages of many urinary cancers. Follow these instructions at home: Medicines ? Take zvhh-lxx-rbqvstp and prescription medicines only as told by your health care provider. ? If you were prescribed an antibiotic medicine, take it as told by your health care provider. Do not stop taking the antibiotic even if you start to feel better. Eating and drinking ? Drink enough fluid to keep your urine pale yellow. It is recommended that you drink 3?4 quarts (2.8?3.8 L) a day. If you have been diagnosed with an infection, drinking cranberry juice in addition to large amounts of water is recommended. ? Avoid caffeine, tea, and carbonated beverages. These tend to irritate the bladder. ? Avoid alcohol because it may irritate the prostate (in males). General instructions ? If you have been diagnosed with a kidney stone, follow your health care provider's instructions about straining your urine to catch the stone. ? Empty your bladder often. Avoid holding urine for long periods of time. ? If you are female: ? After a bowel movement, wipe from front to back and use each piece of toilet paper only once. ? Empty your bladder before and after sex. ? Pay attention to any changes in your symptoms. Tell your health care provider about any changes or any new symptoms. ? It is up to you to get the results of any tests. Ask your health care provider, or the department that is doing the test, when your results will be ready. ? Keep all follow-up visits. This is important. Contact a health care provider if: ? You develop back pain. ? You have a fever or chills. ? You have nausea or vomiting. ? Your symptoms do not improve after 3 days. ? Your symptoms get worse. Get help right away if: ? You develop severe vomiting and are unable to take medicine without vomiting. ? You develop severe pain in your back or abdomen even though you are taking medicine. ? You pass a large amount of blood in your urine. ? You pass blood clots in your urine. ? You feel very weak or like you might faint. ? You faint. Summary ? Hematuria is blood in the urine. It has many possible causes. ? It is very important that you tell your health care provider about any blood in your urine, even if it is painless or the blood stops without treatment. ? Take rifd-bxl-kpifqsg and prescription medicines only as told by your health care provider. ? Drink enough fluid to keep your urine pale yellow. This information is not intended to replace advice given to you by your health care provider. Make sure you discuss any questions you have with your health care provider. Document Revised: 05/15/2021 Document Reviewed: 05/15/2021 [employer] Patient Education ? 2022 [employer] [facility] Urology Office/Clinic Noteon 07-24-2023 Urology Office/Clinic Note Chief Complaint BPH with obstruction/LUTS and family hx of prostate cancer (father) HPI Staff 1 year f/u with PSA. Previous RWR pt. Previous dx of BPH with urinary obstruction/LUTS (Urolift 2018), gross hematuria and family hx of prostate cancer (father). Current PSA done 07/10/23 is 2.2 and previous done 06/27/22 was 2.4. Dysuria: no Incomplete bladder emptying: no Hematuria: states that with strenuous activity he may see some every now and then but rare and very little Frequency: no Urgency: no Nocturia: 1-2x routine for quite a while Stream: some intermittency no straining Leaking: no Post void dripping: no Wearing pads/ Depends: no Urge incontinence: no Stress incontinence: no Incontinence without Sensory Awareness: no Abdominal pain: no Flank pain: no Sexual complaints: no History of Present Illness Tests reviewed: Reviewed UA and PSA. I have reviewed the previous health record information and history for this patient from Dr. Castaneda. I have reviewed and verified the staff HPI to be accurate for this encounter. There have been no associated fever, chills, flank pain, or blood in the urine. Denies any urinary infections since last encounter. Review of Systems PHQ Score Initial Depression Screen Score: 0 ROS - Provider Constitutional: denies weight loss, denies hot flashes. Eyes: denies eye problems. Gastrointestinal: denies nausea, denies vomiting. Cardiovascular: denies chest pain or angina. Integumentary: no dryness Musculoskeletal: denies musculoskeletal symptoms. ENMT: denies otolaryngeal symptoms. Respiratory: no shortness of breath. Heme/Lymph: denies easy bleeding tendency, denies easy bruising tendency. Psychiatric: no confusion, no anxiety. Genitourinary: See HPI. Physical Exam Vitals & Measurements HR: 65(Peripheral) RR: 16 BP: 131/76 HT: 72 in HT: 182 cm WT: 80 kg WT: 176 lb BMI: 24.15 General Appearance: alert, no distress, well nourished, well developed male. Genitourinary: normal scrotum, normal testes, normal urethra, normal epididymis, normal vas deferens/spermatic cord. Flank Pain: none. Bladder: nonpalpable. Prostate: normal prostate, estimated weight 50 gms, no hard nodule observed. Assessment/Plan Former RWR pt 1. BPH with obstruction/lower urinary tract symptoms (N40.1: Benign prostatic hyperplasia with lower urinary tract symptoms) S/p UroLift 04/2018. Pt is not currently taking any prostate medications. Frequency has resolved since having UroLift. Mild hesitancy however strong stream. 1-2x/night which has been ongoing. Denies urinary concerns or infections. 2. Gross hematuria (R31.0: Gross hematuria) Intermittent gross hematuria with strenuous activity since his urolift. States it is a small amount. Denies clots. Denies gross hematuria prior to UroLift. UA today trace-intact blood. No recent imaging. Enlarged prostate could be a possible cause of gross hematuria. -Cysto under local in the spring when pt returns from [place] -Renal US now @ [facility] The risks and benefits for cystoscopy have been discussed. The risks include bleeding, infection, and irritation of the bladder and urinary channel, among others. The patient, after being informed of procedural details and after questions have been answered, wishes to proceed. Full informed consent has been obtained. Will order Local anesthesia. 3. Family history of prostate cancer (Z80.42: Family history of malignant neoplasm of prostate) Father, diagnosed in his 70s. at age 84 due to heart problems. 4. Screening PSA (prostate specific antigen) (Z12.5: Encounter for screening for malignant neoplasm of prostate) PSA: 06/24/21 - 2.5 06/27/22 - 2.4 07/10/23 - 2.2 WILI today: 50g, benign. -Cont to monitor PSA -PSA due in 1 year 5. 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 Cartagena on 07/24/2023 09:04:55. . Documentation recorded by the scribeMelisa, accurately reflects the services(s) I performed and decisions made by me. Authenticated by Dr. Cartagena on 07/24/2023 09:06:19. Problem List/Past Medical History Ongoing Anticoagulant long-term use Anticoagulated BMI 24.0-24.9, adult BPH with obstruction/lower urinary tract symptoms Chronic atrial fibrillation Chronic venous insufficiency COVID-19 vaccine series started Encounter for removal of sutures Family history of prostate cancer Frequency of urination GERD (gastroesophageal reflux disease) Gross hematuria History of venous thrombosis Hyperlipemia, mixed Laceration with foreign body of right index finger without damage to nail, subseq (more content not included)... Normal [facility] Comment on above: Result Comment: Elec tronically Signed By: [place] CARTAGENA MD\.br\Date and Time Signed: 07/24/23 09:06 EDT\.br\Electronically Co-Signed By: Melisa Vieyra\.br\Date and Time Co-Signed: 07/24/23 09:05 EDT Ambulatory Visit Summaryon 1 Ambulatory Visit Summary AMEE RAI :1950 Visit Date:07/22/2023 Ambulatory Visit Instructions Your Diagnosis Encounter for removal of sutures Laceration with foreign body of right index finger without damage to nail, subsequent encounter Your Care Team Attending Physician - Phoebe KENNEDY MD Primary Care Physician - Phoebe KENNEDY MD This Is Your Medications List calcium carbonate (calcium (as carbonate) 600 mg oral tablet) diltiazem (diltiazem CD 180 mg/24 hours Cap-ER) omega-3 polyunsaturated fatty acids (Nature's Bounty Red Krill Oil) omeprazole (omeprazole 40 mg Cap-DR) pravastatin (pravastatin 20 mg Tab) warfarin (Coumadin 5 mg Tab) Procedures Performed Transurethral insertion of prostatic urethral lift implant (04/28/2018), Cystoscopy (03/17/2018), Cystoscopy (02/13/2016), Colonoscopy (02/11/2013), Esophagogastroduodenos copy (02/11/2013), Rotator cuff (03/01/2005), Oscar filter, device (03/01/1997), Tonsillectomy and adenoidectomy. Discharge Vitals Temperature (Temporal Artery) 37 ?C Heart Rate (Peripheral) 62 Respiratory Rate 16 Blood Pressure 120/62 Height 182 cm Height 72 in Weight 83 kg Weight 182.6 lb BMI 25.06 What to do next Scheduled Follow-Up Appointments Thursday 8:45 AM EDT With: [place] CARTAGENA MD Where: [facility] Invalid Interpretation Code [address] [place] [id number] \.br\ Thursday. 2023 8:00 AM EDT \.br\ With: Phoebe KENNEDY MD\.br\ Where: [facility] Medicine Office/Clini c Noteon 07-22-2023 Family Medicine Office/Clinic Note Chief Complaint Here for stitches removal right index finger History of Present Illness The patient presents for suture removal of the right index finger. Sustained laceration with a ammonia box tender 07/12. Sutures were placed at the emergency room wound has been previously examined here in the office. There was question of viability of the central portion of the wound but it appears to have dried and is remaining fairly pink and healthy. Minimal tenderness. Review of Systems PHQ Score Initial Depression Screen Score: 0 See HPI otherwise negative Physical Exam Vitals & Measurements T: 37 ?C(Temporal Artery) HR: 62(Peripheral) RR: 16 BP: 120/62 SpO2: 96% HT: 72 in HT: 182 cm WT: 83 kg WT: 182.6 lb BMI: 25.06 The patient is well groomed, adequately hydrated. She is wearing corrective lenses. Grossly normal hearing. Right index finger shows 6 sutures intact with good wound approximation. Skin appears to be healthy and viable. The 6 sutures were removed. Wound remains approximated nicely and nontender. Tolerated this well. Steri-Strips applied. Assessment/Plan 1. Encounter for removal of sutures (Z48.02: Encounter for removal of sutures) Sutures easily removed. Wound appears viable asked him to exercise some caution on risk of recurrent injury as his tissue is still healing. Steri-Strips will fall off on their own. 2. Laceration with foreign body of right index finger without damage to nail, subsequent encounter (S61.546D: Laceration with foreign body of right index finger without damage to nail, subsequent encounter) See problem #1 Portions of this record may have been created with voice recognition artificial intelligence software, specifically [employer], [employer] and or [facility]. Substitutions may have occurred due to the inherent limitations of voice recognition and artificial intelligence software. Follow-up With When Contact Information Phoebe KENNEDY MD, FAM Only if needed Additional Instructions: Patient Education Suture Removal, Care After Problem List/Past Medical History Ongoing Anticoagulant long-term use BMI 24.0-24.9, adult BPH with obstruction/lower urinary tract symptoms Chronic atrial fibrillation Chronic venous insufficiency COVID-19 vaccine series started Encounter for removal of sutures Family history of prostate cancer Frequency of urination GERD (gastroesophageal reflux disease) Gross hematuria History of venous thrombosis Hyperlipemia, mixed Laceration with foreign body of right index finger without damage to nail, subsequent encounter On statin therapy Screen for colon cancer Historical Acute allergic rhinitis due to pollen Afib BMI 26.0-26.9,adult Chronic diarrhea Epigastric pain Family history of early CAD Family history of prostate cancer in father History of DVT in adulthood Hyperlipidemia Hypertrophy of prostate without urinary obstruction Over weight Overweight Venous thrombosis Procedure/Surgical History Transurethral insertion of prostatic urethral lift implant (04/28/2018), Cystoscopy (03/17/2018), Cystoscopy (02/13/2016), Colonoscopy (02/11/2013), Esophagogastroduodenos copy (02/11/2013), Rotator cuff (03/01/2005), Cambridge filter, device (03/01/1997), Tonsillectomy and adenoidectomy. Medications calcium (as carbonate) 600 mg oral tablet, 600 mg= 1 tab(s), Oral, Daily Coumadin 5 mg Tab, 5 mg= 1 tab(s), Oral, Daily, 1 refills diltiazem CD 180 mg/24 hours Cap-ER, 180 mg= 1 cap(s), Oral, Daily, 1 refills Nature's Bounty Red Krill Oil, 1200, Oral, BID omeprazole 40 mg Cap-DR, 40 mg= 1 cap(s), Oral, Daily, 1 refills pravastatin 20 mg Tab, 20 mg= 1 tab(s), Oral, Bedtime, 1 refills Allergies No Known Allergies Social History Alcohol - Denies Alcohol Use, 07/04/2022 Current, 07/03/2023 Employment/School Retired, 02/17/2019 Home/Environment Lives with Spouse., 02/17/2019 Substance Abuse - Denies Substance Abuse, 03/01/2018 Tobacco - Denies Tobacco Use, 03/01/2018 Never (less than 100 in lifetime) Tobacco Use:. Never Smokeless Tobacco Use:., 07/22/2023 Family History Acute myocardial infarction: Brother. COPD: Mother. Cardiac disease: Brother. Cataract: Mother and Father. Congenital heart disease: Father and Brother. Diabetes mellitus type 2: Mother and Brother.Negative: Father. MRSA infection: Mother. Macular degeneration: Father. Primary malignant neoplasm of bone: Brother. Primary malignant neoplasm of brain: Father. Primary malignant neoplasm of female breast: Mother. Primary malignant neoplasm of prostate: Father and Brother. Rheumatoid arthritis: Father. Immunizations Vaccine Date Status Comments influenza virus vaccine, inactivated 07/03/2023 Given Early/Late Reason: Nursing Judgment diphtheria/pertussis, acel/tetanus adult 01/30/2023 Given SARS-CoV-2 (COVID-19) mRNA-1273 vaccine 07/16/2022 Given influenza virus vaccine, inactivated 07/04/20 (more content not included)... Normal [facility] Comment on above: Result Comment: Elec tronically Signed By: BEATRIS ROMERO, Phoebe\.br\Date and Time Signed: 07/22/23 09:01 EDT Patient Educationon 07-22-20 Patient Education Dermatology Suture Removal, Care After The following information offers guidance on how to care for yourself after your procedure. Your health care provider may also give you more specific instructions. If you have problems or questions, contact your health care provider. What can I expect after the procedure? After your stitches (sutures) are removed, it is common to have: ? Some discomfort and swelling in the area. ? Slight redness in the area. Follow these instructions at home: If you have a dressing: ? Wash your hands with soap and water for at least 20 seconds before and after you change your bandage (dressing). If soap and water are not available, use hand associate store manager. ? Change your dressing as told by your health care provider. If your dressing becomes wet or dirty, or develops a bad smell, change it as soon as possible. ? If your dressing sticks to your skin, pour warm, clean water over it until it loosens and can be removed without pulling apart the wound edges. Pat the area dry with a soft, clean towel. Do not rub the wound because that may cause bleeding. Wound care ? Check your wound every day for signs of infection. Check for: ? More redness, swelling, or pain. ? Fluid or blood. ? New warmth, a rash, or hardness at the wound site. ? Pus or a bad smell. ? Wash your hands with soap and water for at least 20 seconds before and after touching your wound. If soap and water are not available, use hand associate store manager. ? Keep the wound area dry and clean. Clean and pat the wound dry as told by your health care provider. ? Apply cream or ointment only as told by your health care provider. ? If skin glue or adhesive strips were applied after sutures were removed, leave these closures in place. They may need to stay in place for 2 weeks or longer. If adhesive strip edges start to loosen and curl up, you may trim the loose edges. Do not remove adhesive strips completely unless your health care provider tells you to do that. ? Continue to protect the wound from injury. ? Do not pick at your wound. Picking can cause an infection. Bathing ? Do not take baths, swim, or use a hot tub until your health care provider approves. Ask your health care provider if you may take showers. ? Follow these steps for showering: ? If you have a dressing, remove it before getting into the shower. ? In the shower, allow soapy water to get on the wound. Avoid scrubbing the wound. ? When you get out of the shower, dry the wound by patting it with a clean towel. ? Reapply a dressing over the wound, if needed. Scar care When your wound has completely healed, help decrease the size of your scar by: ? Wearing sunscreen over the scar or covering it with clothing when you are outside. New scars get sunburned easily, which can make scarring worse. ? Gently massaging the scarred area. This can decrease scar thickness. General instructions ? Take prlc-qqh-gaewera and prescription medicines only as told by your health care provider. ? Keep all follow-up visits. This is important. Contact a health care provider if: ? You have more redness, swelling, or pain around your wound. ? You have fluid or blood coming from your wound. ? You have new warmth, a rash, or hardness at the wound site. ? You have pus or a bad smell coming from your wound. ? Your wound opens up. Get help right away if: ? You have a fever or chills. ? You have red streaks coming from your wound. Summary ? After your sutures are removed, it is common to have some discomfort and swelling in the area. ? Wash your hands with soap and water before you change your bandage (dressing). ? Keep the wound area dry and clean. Do not take baths, swim, or use a hot tub until your health care provider approves. This information is not intended to replace advice given to you by your health care provider. Make sure you discuss any questions you have with your health care provider. Document Revised: 01/07/2022 Document Reviewed: 01/07/2022 [employer]it[employer]iz Patient Education ? 2022 [employer]. [employer] [facility] Ambulatory Visit Summaryon 1 Ambulatory Visit Summary AMEE RAI :1950 Visit Date:07/13/2023 Ambulatory Visit Instructions Your Diagnosis Chronic atrial fibrillation BPH with obstruction/lower urinary tract symptoms Chronic venous insufficiency GERD (gastroesophageal reflux disease) Laceration with foreign body of right index finger without damage to nail, subsequent encounter History of venous thrombosis Hyperlipemia, mixed Anticoagulant long-term use Your Care Team Attending Physician - Phoebe KENNEDY MD Primary Care Physician - Phoebe KENNEDY MD This Is Your Medications List Contact prescribing physician if questions or concerns calcium carbonate (calcium (as carbonate) 600 mg oral tablet) diltiazem (diltiazem CD 180 mg/24 hours Cap-ER) omega-3 polyunsaturated fatty acids (Nature's Bounty Red Krill Oil) omeprazole (omeprazole 40 mg Cap-DR) pravastatin (pravastatin 20 mg Tab) warfarin (Coumadin 5 mg Tab) Procedures Performed Transurethral insertion of prostatic urethral lift implant (04/28/2018), Cystoscopy (03/17/2018), Cystoscopy (02/13/2016), Colonoscopy (02/11/2013), Esophagogastroduodenos copy (02/11/2013), Rotator cuff (03/01/2005), [place] filter, device (03/01/1997), Tonsillectomy and adenoidectomy. Discharge Vitals Heart Rate (Peripheral) 62 Respiratory Rate 16 Blood Pressure 128/78 Height 72 in Height 182.88 cm Weight 182.82 lb Weight 83.1 kg BMI 24.85 What to do next Scheduled Follow-Up Appointments Thursday 8:40 AM EDT With: Where: [facility] Medicine Danish Invalid Interpretation Code [address] [place] [address]- \.br\ Thursday 8:20 AM EDT \.br\ With:\.br\ Where: [facility] Danish [facility] Medicine Office/Clini c Noteon 07-13-2023 Family Medicine Office/Clinic Note Chief Complaint 6mo chk up, not fasting, no rfs History of Present Illness The patient is here for general health maintenance checkup. He slid a box knife across his right index finger and ended up with 6 stitches in his finger just yesterday. He is up-to-date with tetanus.. He denies any tendon damage. He went to the urgent care they did not feel there was any tendon involvement. He is on blood thinners. Bleeding has ceased. He checks his blood pressure regularly. Document that he brings over the past several months shows very good consistent average. His heart rate is usually in the high 40s?80s he does not recognize when his heart rate is low. He denies any episodes of heart racing. He has some bruising. He denies any nosebleeds or blood in the bowel. His urinary flow is fair. He notices blood in his urine occasionally when he gets overactive or working too hard. It goes away if he drinks a lot of water and watches it. He denies any clots. PSA is 2.2 showing stability. Has siblings with prostate carcinoma. Optometry care is up-to-date does not have any cataracts. He has new glasses. Had expected to have fasting labs drawn with his INR earlier this week but orders were not in. His labs are always very consistent and they are reviewed from the spring showing good lipid control stable renal functions. Review of Systems PHQ Score Initial Depression Screen Score: 0 see hpi otherwise neg Physical Exam Vitals & Measurements HR: 62(Peripheral) RR: 16 BP: 128/78 SpO2: 99% HT: 72 in HT: 182.88 cm WT: 83.1 kg WT: 182.82 lb BMI: 24.85 The patient is adequately hydrated, reasonably groomed. Wearing corrective lenses. Conjunctivae clear. Pupils symmetric. Grossly normal hearing. Oropharynx pink and moist. Without JVD or bruits. Clear bilaterally. Irregularly irregular. No discrete murmur, gallop, or rub. Abdomen: Soft, flat, nontender. No organomegaly. There is some chronic pitting edema in the left lower extremity, wearing a support stocking. Pulse +1. Mild development, good posture. Deeply tanned. There are senile purpura on the arms. His right index finger laceration approximately 1.2 cm in length on the medial aspect. Slightly tender. Sutures are in intact. Range of motion in the digit is good. Cooperative, insightful. Vital Signs Blood pressure is 128/78. Assessment/Plan 1. Chronic atrial fibrillation (I48.21: Permanent atrial fibrillation) Patient remains fully anticoagulated with Coumadin therapeutic INR managed here in the office. Have provided him an order to take to [place] when he travels this winter to have value done every 4 to 6 weeks. Always remain vigilant for any RVR shortness of breath chest pain seeking emergent care if noted Ordered: PT 2. BPH with obstruction/lower urinary tract symptoms (N40.1: Benign prostatic hyperplasia with lower urinary tract symptoms) Stable at this time without medication use. PSA is normal 3. 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 Continue limiting sodium in the diet keeping legs elevated 4. GERD (gastroesophageal reflux disease) (K21.9: Gastro-esophageal reflux disease without esophagitis) Reflux is stable uses omeprazole daily follow with dietary compliance notify me of any dysphagia 5. Laceration with foreign body of right index finger without damage to nail, subsequent encounter (S61.220D: Laceration with foreign body of right index finger without damage to nail, subsequent encounter) Laceration is stable at this time. Asking him to have sutures removed in 10 days uncertain if the small flap of skin in the center of the repair will remain viable. 6. History of venous thrombosis (Z86.718: Personal history of other venous thrombosis and embolism) See #3 7. Hyperlipemia, mixed (E78.2: Mixed hyperlipidemia) Continues with moderate intensity pravastatin along with dietary compliance to prevent cardiovascular disease risk progression. Agree that labs are stable and we will plan to repeat this in the spring when he returns from [place] 8. Anticoagulant long-term use (Z79.01: jail (current) use of anticoagulants) Always remain vigilant for bruising bleeding and avoid any high risk activities that could entail falls or injuries Portions of this record may have been created with voice recognition artificial intelligence software, specifically App[employer]net, Tipbit and or [facility]. Substitutions may have occurred due to the inherent limitations of voice recognition and artificial intelligence software. Follow-up With When Contact Information Phoebe KENNEDY MD, FAM Within 6 months [address] [id number] Additional Instructions: but see EF or TB for suture removal FINGER LACERATION Patient Education Atrial Fibrillation Problem List/Past Medical History [place] (more content not included)... Normal [facility] Comment on above: Result Comment: Elec tronically Signed By: Phoebe KENNEDY MD\.br\Date and Time Signed: 07/13/23 13:20 EDT Laceration repairon 07-12-20 23 Elle Taylor PA-C 07/12/2023 2:35 PM Wound extent: Laceration repair Date/Time: 07/12/2023 2:17 PM Performed by: Elle Taylor PA-C Authorized by: Elle Taylor PA-C Verbal consent: obtained Consent given by: patient Patient identity confirmed: verbally with patient Body area: upper extremity Location details: right index finger Laceration length: 1.5 cm Foreign bodies: no foreign bodies Tendon involvement: none Nerve involvement: none Anesthesia: digital block Anesthesia: Local Anesthetic: lidocaine 1% without epinephrine Anesthetic total: 5 mL Patient sedated: no Repair type: simple Preparation: Patient was prepped and draped in the usual sterile fashion. Irrigation solution: saline Irrigation method: tap Amount of cleaning: standard Hemostasis achieved with: direct pressure no foreign body, no muscle damage and no tendon damage Debridement: none Degree of undermining: none Skin closure: 5-0 ethilon Number of sutures: 6 Technique: simple interrupted Approximation: close Approximation difficulty: simple Dressing: ABX ointment,non-adherent, coban. Patient tolerance: patient tolerated the procedure well with no immediate complications [facility] Patient Educationon 07-12-20 Patient Education Cardiovascular Atrial Fibrillation Atrial fibrillation is a type of irregular or rapid heartbeat (arrhythmia). In atrial fibrillation, the top part of the heart (atria) beats in an irregular pattern. This makes the heart unable to pump blood normally and effectively. The goal of treatment is to prevent blood clots from forming, control your heart rate, or restore your heartbeat to a normal rhythm. If this condition is not treated, it can cause serious problems, such as a weakened heart muscle (cardiomyopathy) or a stroke. What are the causes? This condition is often caused by medical conditions that damage the heart's electrical system. These include: ? High blood pressure (hypertension). This is the most common cause. ? Certain heart problems or conditions, such as heart failure, coronary artery disease, heart valve problems, or heart surgery. ? Diabetes. ? Overactive thyroid (hyperthyroidism). ? Obesity. ? Chronic kidney disease. In some cases, the cause of this condition is not known. What increases the risk? This condition is more likely to develop in: ? Older people. ? People who smoke. ? Athletes who do endurance exercise. ? People who have a family history of atrial fibrillation. ? Men. ? People who use drugs. ? People who drink a lot of alcohol. ? People who have lung conditions, such as emphysema, pneumonia, or COPD. ? People who have obstructive sleep apnea. What are the signs or symptoms? Symptoms of this condition include: ? A feeling that your heart is racing or beating irregularly. ? Discomfort or pain in your chest. ? Shortness of breath. ? Sudden light-headedness or weakness. ? Tiring easily during exercise or activity. ? Fatigue. ? Syncope (fainting). ? Sweating. In some cases, there are no symptoms. How is this diagnosed? Your health care provider may detect atrial fibrillation when taking your pulse. If detected, this condition may be diagnosed with: ? An electrocardiogram (ECG) to check electrical signals of the heart. ? An ambulatory case monitor to record your heart's activity for a few days. ? A transthoracic echocardiogram (TTE) to create pictures of your heart. ? A transesophageal echocardiogram (RAPHAEL) to create even closer pictures of your heart. ? A stress test to check your blood supply while you exercise. ? Imaging tests, such as a CT scan or chest X-ray. ? Blood tests. How is this treated? Treatment depends on underlying conditions and how you feel when you experience atrial fibrillation. This condition may be treated with: ? Medicines to prevent blood clots or to treat heart rate or heart rhythm problems. ? Electrical cardioversion to reset the heart's rhythm. ? A pacemaker to correct abnormal heart rhythm. ? Ablation to remove the heart tissue that sends abnormal signals. ? Left atrial appendage closure to seal the area where blood clots can form. In some cases, underlying conditions will be treated. Follow these instructions at home: Medicines ? Take over-the counter and prescription medicines only as told by your health care provider. ? Do not take any new medicines without talking to your health care provider. ? If you are taking blood thinners: ? Talk with your health care provider before you take any medicines that contain aspirin or NSAIDs, such as ibuprofen. These medicines increase your risk for dangerous bleeding. ? Take your medicine exactly as told, at the same time every day. ? Avoid activities that could cause injury or bruising, and follow instructions about how to prevent falls. ? Wear a medical alert bracelet or carry a card that lists what medicines you take. Lifestyle ? Do not use any products that contain nicotine or tobacco, such as cigarettes, e-cigarettes, and chewing tobacco. If you need help quitting, ask your health care provider. ? Eat heart-healthy foods. Talk with a dietitian to make an eating plan that is right for you. ? Exercise regularly as told by your health care provider. ? Do not drink alcohol. ? Lose weight if you are overweight. ? Do not use drugs, including cannabis. General instructions ? If you have obstructive sleep apnea, manage your condition as told by your health care provider. ? Do not use diet pills unless your health care provider approves. Diet pills can make heart problems worse. ? Keep all follow-up visits as told by your health care provider. This is important. Contact a health care provider if you: ? Notice a change in the rate, rhythm, or strength of your heartbeat. ? Are taking a blood thinner and you notice more bruising. ? Tire more easily when you exercise or do heavy work. ? Have a sudden change in weight. Get help right away if you have: ? Chest pain, abdominal pain, sweating, or weakness. ? Trouble breathing. (more content not included)... Normal [facility] CHEMISTRYOrdered By: SYSTEM SYSTEM on 07-10-2023 Prostate specific Ag [Mass/Vol] 2.2 ng/mL Normal 0.1 - 3.5 ng/mL [facility] Remisol Comment on above: Interpretive Data: T he concentration of PSA determined by different manufacturers can vary due to differences in assay methods and reagent specificity. Values obtained from different assay methods cannot be used interchangeably. The methodology used for this result was chemiluminescence using Direct[employer]'s Access Hybritech PSA reagent. COAGULATIONOrdered By: Sanjuana Liao on 07-10-2023 INR Coag (PPP) [Relative time] 2.3 {INR} Invalid Interpretation Code [facility] Auto Coag Comment on above: Interpretive Data: I NR results are specifically intended to assess patients stabilized on long-term Anticoagulation therapy suggested INR s Less Intensive Anticoagulation 2.0 3.0 Conventional Range 3.0 4.5 PT Coag (PPP) [Time] 26.2 s High 9.4 - 12.5 second(s) [facility] Auto Coag Comment on above: Interpretive Data: 1 5 days - 4 weeks 1 - 5 months 6 -11 months 1 5 years 6 10 years 11 -17 years Mean: 11.2 (9.5 12.6) Mean: 11.0 (9.7 12.8) Mean: 11.0 (9.8 13.0) Mean: 11.3 (9.9 13.4) Mean: 11.7 (10.0 14.6) Mean: 11.8 (10.0 - 14.1) Pediatric Reference ranges were obtained from a study by Juventino Golden et al. prepared from 1437 samples obtained at 7 different centers using the same coagulation reagent and instrumentation as [facility]. Currently there are no coagulation studies available worldwide for children to 14 days, and no normal ranges. Nurse Consultation Noteon Nurse Consultation Note Reason for Visit Fasting labs Medications calcium (as carbonate) 600 mg oral tablet, 600 mg= 1 tab(s), Oral, Daily Coumadin 5 mg Tab, 5 mg= 1 tab(s), Oral, Daily, 1 refills diltiazem CD 180 mg/24 hours Cap-ER, 180 mg= 1 cap(s), Oral, Daily, 1 refills Nature's Bounty Red Krill Oil, 1200, Oral, BID omeprazole 40 mg Cap-DR, 40 mg= 1 cap(s), Oral, Daily, 1 refills pravastatin 20 mg Tab, 20 mg= 1 tab(s), Oral, Bedtime, 1 refills Allergies No Known Allergies Immunizations Vaccine Date Status Comments influenza virus vaccine, inactivated 07/03/2023 Given Early/Late Reason: Nursing Judgment diphtheria/pertussis, acel/tetanus adult 01/30/2023 Given SARS-CoV-2 (COVID-19) mRNA-1273 vaccine 07/16/2022 Given influenza virus vaccine, inactivated 07/04/2022 Given influenza virus vaccine, inactivated 07/04/2022 Recorded SARS-CoV-2 (COVID-19) mRNA-1273 vaccine 02/14/2022 Recorded influenza virus vaccine, inactivated 07/22/2021 Given SARS-CoV-2 (COVID-19) mRNA-1273 vaccine 07/22/2021 Recorded SARS-CoV-2 (COVID-19) mRNA-1273 vaccine 11/10/2020 Recorded gvn in [place] SARS-CoV-2 (COVID-19) mRNA-1273 vaccine 10/13/2020 Recorded gvn in [place] influenza virus vaccine, inactivated 07/06/2020 Given influenza virus vaccine, inactivated 07/15/2019 Given Nursing Judgment influenza virus vaccine, inactivated 02/09/2019 Recorded influenza virus vaccine, inactivated 07/12/2018 Recorded pneumococcal 23-valent vaccine 09/03/2017 Recorded pneumococcal 23-valent vaccine 09/03/2017 Recorded influenza virus vaccine, inactivated 07/06/2017 Recorded influenza virus vaccine, inactivated 06/25/2016 Recorded pneumococcal 13-valent vaccine 07/26/2015 Recorded pneumococcal 13-valent vaccine 07/26/2015 Recorded zoster vaccine live 06/06/2011 Recorded zoster vaccine live 06/06/2011 Recorded Normal [facility] PSA Totalon 07-10-2023 Prostate specific Ag [Mass/Vol] 2.2 ng/mL Normal 0.1-3.5 [facility] Comment on above: Result Comment: The concentration of PSA determined by different manufacturers can vary due to differences in assay methods and reagent specificity. Values obtained from different assay methods cannot be used interchangeably. The methodology used for this result was chemiluminescence using Direct[employer]'s [employer] Hybritech PSA reagent. Performed By: #### 1 [id number] #### [facility] Laboratory [address] [place] [address] PTon 07-10-2023 INR Coag (PPP) [Relative time] 2.3 {INR} Invalid Interpretation Code [facility] Comment on above: Result Comment: INR results are specifically intended to assess patients stabilized on long-term Anticoagulation therapy suggested INR?s ?Less Intensive Anticoagulation? 2.0 ? 3.0 Conventional Range 3.0 ? 4.5 Performed By: #### 2 [id number] ####[facility] [address] [place] [address] PT Coag (PPP) [Time] 26.2 second(s) High 9.4-12.5 [facility] Comment on above: Result Comment: 15 d ays - 4 weeks 1 - 5 months 6 -11 months 1 ? 5 years 6 ? 10 years 11 -17 years Mean: 11.2 (9.5 ? 12.6) Mean: 11.0 (9.7 ? 12.8) Mean: 11.0 (9.8 ? 13.0) Mean: 11.3 (9.9 ? 13.4) Mean: 11.7 (10.0 ? 14.6) Mean: 11.8 (10.0 - 14.1) Pediatric Reference ranges were obtained from a study by Juventino Golden et al. prepared from 1437 samples obtained at 7 different centers using the same coagulation reagent and instrumentation as [facility]. Currently there are no coagulation studies available worldwide for children to 14 days, and no normal ranges. Performed By: #### 2 [id number] ####[facility] [address] [place] [address] Consent for Flu Vaccineon Consent for Flu Vaccine [id number]#1.0 0TIFF Normal [facility] Screenson 07-06-2023 Screens [id number] 10 [id number]#1.0 0TIFF Normal [facility] Ambulatory Visit Summaryon 1 Ambulatory Visit Summary AMEE RAI :1950 Visit Date:07/03/2023 Ambulatory Visit Instructions Your Diagnosis Annual visit for general adult medical examination without abnormal findings Chronic atrial fibrillation GERD (gastroesophageal reflux disease) Hyperlipemia, mixed On statin therapy BPH with obstruction/lower urinary tract symptoms Influenza vaccine administered BMI 25.0-25.9,adult Overweight Your Care Team Attending Physician - Phoebe KENNEDY MD Primary Care Physician - Phoebe KENNEDY MD This Is Your Medications List calcium carbonate (calcium (as carbonate) 600 mg oral tablet) diltiazem (diltiazem CD 180 mg/24 hours Cap-ER) omega-3 polyunsaturated fatty acids (Nature's Bounty Red Krill Oil) omeprazole (omeprazole 40 mg Cap-DR) pravastatin (pravastatin 20 mg Tab) warfarin (Coumadin 5 mg Tab) Procedures Performed Transurethral insertion of prostatic urethral lift implant (04/28/2018), Cystoscopy (03/17/2018), Cystoscopy (02/13/2016), Colonoscopy (02/11/2013), Esophagogastroduodenos copy (02/11/2013), Rotator cuff (03/01/2005), [place] filter, device (03/01/1997), Tonsillectomy and adenoidectomy. Discharge Vitals Heart Rate (Peripheral) 66 Blood Pressure 90/72 Height 182.88 cm Height 72 in Weight 82.8 kg Weight 182.16 lb BMI 24.76 What to do next Scheduled Follow-Up Appointments Thursday 8:20 AM EDT With: Where: [facility] Invalid Interpretation Code [address] [place] [address]- \.br\ Thursday 8:45 AM EDT \.br\ With: [place] CARTAGENA MD\.br\ Where: [facility] Ambulatory Visit Summary AMEE RAI :1950 Visit Date:07/03/2023 Ambulatory Visit Instructions Your Diagnosis Annual visit for general adult medical examination without abnormal findings Chronic atrial fibrillation GERD (gastroesophageal reflux disease) Hyperlipemia, mixed On statin therapy BPH with obstruction/lower urinary tract symptoms BMI 25.0-25.9,adult Overweight Your Care Team Attending Physician - Phoebe KENNEDY MD Primary Care Physician - BEATRIS ROMERO, Phoebe This Is Your Medications List calcium carbonate (calcium (as carbonate) 600 mg oral tablet) diltiazem (diltiazem CD 180 mg/24 hours Cap-ER) omega-3 polyunsaturated fatty acids (Nature's Bounty Red Krill Oil) omeprazole (omeprazole 40 mg Cap-DR) pravastatin (pravastatin 20 mg Tab) warfarin (Coumadin 5 mg Tab) Procedures Performed Transurethral insertion of prostatic urethral lift implant (04/28/2018), Cystoscopy (03/17/2018), Cystoscopy (02/13/2016), Colonoscopy (02/11/2013), Esophagogastroduodenos copy (02/11/2013), Rotator cuff (03/01/2005), Oscar filter, device (03/01/1997), Tonsillectomy and adenoidectomy. What to do next Scheduled Follow-Up Appointments Thursday 8:20 AM EDT With: Where: [facility] Invalid Interpretation Code [address] [place] [id number]- \.br\ Thursday 8:45 AM EDT \.br\ With: FARUTN ROMERO, [place]\.br\ Where: [facility] Family Medicine Office/Clini c Noteon 07-03-2023 Family Medicine Office/Clinic Note Chief Complaint Medicare Wellness Visit Review of Systems PHQ Score Initial Depression Screen Score: 0 Physical Exam Vitals & Measurements HR: 66(Peripheral) BP: 90/72 SpO2: 97% HT: 182.88 cm HT: 72 in WT: 82.8 kg WT: 182.16 lb BMI: 24.76 Assessment/Plan 1. Annual visit for general adult medical examination without abnormal findings (Z00.00: Encounter for general adult medical examination without abnormal findings) The patient was given a customized and personalized print out of all the current AHRQ USPSTF?s recommendations for preventative services and all current CDC recommended immunizations, relevant risk recommendations and the following patient brochures were given. Reviewed Medicare Prevention Services checklist. CDC-Falls Prevention and home safety screening reviewed. Patient denies any falls in last 12 months, voices no worry about falling. Exhibits no problems with sitting, standing or ambulation. Patient aware with keeping walk way area free of clutter to prevent tripping and/or falling. [place] Advance Directives reviewed. Documents in chart. Patient denies any problems with ADL?s and Instrumental ADL?s. Cognitive screening completed with memory and clock face drawing. No deficits noted. Immunization record reviewed, discussed Shingrix vaccine with educational handout and availability. COVID vaccines have been administered, with 3 Boosters received. Allergies and medications reviewed and up to date. No concerns with taking medication as prescribed. Reviewed OTC medications, medication list up to date. Blood tests were reviewed: Discussed what tests need to be updated. Labs were ordered, will have completed prior to next PCP visit. Labs to be completed with [facility]. No concerns with bowel/ bladder. Cologuard last completed 02/11/23 repeat in 3 years, referral placed by PCP. Reviewed pain symptoms : denies pain, no pain medications taken. Reviewed all outside providers that patient follows. Last visit summary notes available in chart and/or have been requested. Patient declines any signs or symptoms of depression at this time. 8 minutes spent with screening and documentation. PHQ2 screening score 0. Patient never drinks alcohol, denies concerns. 8 minutes spent with screening and documentation. Audit score 0. Follow up scheduled with PCP, 07/10/23 AWV has been scheduled, 07/05/24 @1pm Medicare provides yearly screening for alcohol and depression concerns. This is completed during our Medicare wellness visit for those who do not have a current diagnosis of depression or concerns with alcohol use. I spent a total of 17 minutes on this date of service which included preparing to see the patient, face to face patient care, completing clinical documentation, obtaining and/or reviewing separately obtained history, counseling and educating the patient with handouts. Explanations were provided with reviewing questionnaires. AUDIT risk assessment screening completed, risk score (0) with patient denying concerns with use. Completed PHQ-2 risk assessment for depression with risk score (0), negative findings. Patient has been reminded to notify the provider if there would be a change or concerns with symptoms with fear, unable to sleep, worrying too much or feeling down and/or sad with lost of interest with daily activities. Will continue to monitor with screening yearly during Medicare wellness visits. 2. Chronic atrial fibrillation (I48.21: Permanent atrial fibrillation) Denies SOB, chest pain or irregular heart rhythm. Manages medications with office visits. 3. GERD (gastroesophageal reflux disease) (K21.9: Gastro-esophageal reflux disease without esophagitis) Patient denies any concerns. Takes Omeprazole daily as directed, states effective. Patient encouraged to avoid spicy or acidic foods, to remain upright 30 min. after eating ,avoid eating late at night ,and follow up with PCP as needed. 4. Hyperlipemia, mixed (E78.2: Mixed hyperlipidemia) Patient encouraged to eat a diet that is low in saturated fats. Stressed importance of loosing weight and/or maintain healthy BMI. as being overweight does produce more lipids. Monitor alcohol intake and avoid smoking. Risks may also increase with a family history of hyperlipidemia. Patient voices understanding with healthy dietary choices to reduce risk factors associated with CVA. Taking statin medication daily. Will continue to follow up with labs as directed. 5. 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 6. BPH with obstruction/lower urinary tract symptoms (N40.1: Benign prostatic hyperplasia with lower urinary tract symptoms) Patient denies any difficulty with stream, stopping,starting or dribbling. No complaints of pain, blood in urine or urination retention issues. Will follow with PCP as needed. 7. Influenza vaccine administered (Z23: Encounter for imm (more content not included)... Normal [facility] Comment on above: Result Comment: Elec tronically Signed By: Ana KENNEDY MD, FAAFP\.br\Date and Time Signed: 07/03/23 16:06 EDT\.br\Electronically Co-Signed By: Mahnaz Dias\.br\Date and Time Co-Signed: 07/03/23 14:33 EDT Patient Educationon 07-03-20 Patient Education Cardiovascular Atrial Fibrillation Atrial fibrillation is a type of irregular or rapid heartbeat (arrhythmia). In atrial fibrillation, the top part of the heart (atria) beats in an irregular pattern. This makes the heart unable to pump blood normally and effectively. The goal of treatment is to prevent blood clots from forming, control your heart rate, or restore your heartbeat to a normal rhythm. If this condition is not treated, it can cause serious problems, such as a weakened heart muscle (cardiomyopathy) or a stroke. What are the causes? This condition is often caused by medical conditions that damage the heart's electrical system. These include: ? High blood pressure (hypertension). This is the most common cause. ? Certain heart problems or conditions, such as heart failure, coronary artery disease, heart valve problems, or heart surgery. ? Diabetes. ? Overactive thyroid (hyperthyroidism). ? Obesity. ? Chronic kidney disease. In some cases, the cause of this condition is not known. What increases the risk? This condition is more likely to develop in: ? Older people. ? People who smoke. ? Athletes who do endurance exercise. ? People who have a family history of atrial fibrillation. ? Men. ? People who use drugs. ? People who drink a lot of alcohol. ? People who have lung conditions, such as emphysema, pneumonia, or COPD. ? People who have obstructive sleep apnea. What are the signs or symptoms? Symptoms of this condition include: ? A feeling that your heart is racing or beating irregularly. ? Discomfort or pain in your chest. ? Shortness of breath. ? Sudden light-headedness or weakness. ? Tiring easily during exercise or activity. ? Fatigue. ? Syncope (fainting). ? Sweating. In some cases, there are no symptoms. How is this diagnosed? Your health care provider may detect atrial fibrillation when taking your pulse. If detected, this condition may be diagnosed with: ? An electrocardiogram (ECG) to check electrical signals of the heart. ? An ambulatory case monitor to record your heart's activity for a few days. ? A transthoracic echocardiogram (TTE) to create pictures of your heart. ? A transesophageal echocardiogram (RAPHAEL) to create even closer pictures of your heart. ? A stress test to check your blood supply while you exercise. ? Imaging tests, such as a CT scan or chest X-ray. ? Blood tests. How is this treated? Treatment depends on underlying conditions and how you feel when you experience atrial fibrillation. This condition may be treated with: ? Medicines to prevent blood clots or to treat heart rate or heart rhythm problems. ? Electrical cardioversion to reset the heart's rhythm. ? A pacemaker to correct abnormal heart rhythm. ? Ablation to remove the heart tissue that sends abnormal signals. ? Left atrial appendage closure to seal the area where blood clots can form. In some cases, underlying conditions will be treated. Follow these instructions at home: Medicines ? Take over-the counter and prescription medicines only as told by your health care provider. ? Do not take any new medicines without talking to your health care provider. ? If you are taking blood thinners: ? Talk with your health care provider before you take any medicines that contain aspirin or NSAIDs, such as ibuprofen. These medicines increase your risk for dangerous bleeding. ? Take your medicine exactly as told, at the same time every day. ? Avoid activities that could cause injury or bruising, and follow instructions about how to prevent falls. ? Wear a medical alert bracelet or carry a card that lists what medicines you take. Lifestyle ? Do not use any products that contain nicotine or tobacco, such as cigarettes, e-cigarettes, and chewing tobacco. If you need help quitting, ask your health care provider. ? Eat heart-healthy foods. Talk with a dietitian to make an eating plan that is right for you. ? Exercise regularly as told by your health care provider. ? Do not drink alcohol. ? Lose weight if you are overweight. ? Do not use drugs, including cannabis. General instructions ? If you have obstructive sleep apnea, manage your condition as told by your health care provider. ? Do not use diet pills unless your health care provider approves. Diet pills can make heart problems worse. ? Keep all follow-up visits as told by your health care provider. This is important. Contact a health care provider if you: ? Notice a change in the rate, rhythm, or strength of your heartbeat. ? Are taking a blood thinner and you notice more bruising. ? Tire more easily when you exercise or do heavy work. ? Have a sudden change in weight. Get help right away if you have: ? Chest pain, abdominal pain, sweating, or weakness. ? Trouble breathing. (more content not included)... Normal [facility] COAGULATIONOrdered By: Christiano Reich on 04-13-2023 INR Coag (PPP) [Relative time] 2.2 {INR} Invalid Interpretation Code [facility] Auto Coag PT Coag (PPP) [Time] 25.1 s High 9.4 - 12.5 second(s) [facility]ag CHEMISTRYOrdered By: SYSTEM SYSTEM on 06-27-2022 Albumin [Mass/Vol] 4.7 g/dL Normal 3.3 - 5.0 gm/dL [facility] Remisol Albumin/Globulin [Mass ratio] 2.1 {ratio} Normal 1.1 - 2.2 [facility] ALP [Catalytic activity/Vol] 46 [iU]/d Normal 21 - 98 Int._Unit/L [facility] ALT No additional P-5'-P [Catalytic activity/Vol] 17 [iU]/d Normal 6 - 46 Int._Unit/L [facility] Anion gap [Moles/Vol] 9 mmol/L Normal 6 - 16 mEq/L [facility] AST [Catalytic activity/Vol] 21 [iU]/d Normal 5 - 43 Int._Unit/L [facility] Bilirubin [Mass/Vol] 0.7 mg/dL Normal 0.0 - 1.1 mg/dL [facility] Calcium [Mass/Vol] 9.0 mg/dL Normal 8.9 - 11.1 mg/dL [facility] Chloride [Moles/Vol] 103 mmol/L Normal 101 - 111 mmol/L [facility] Cholesterol [Mass/Vol] 142 mg/dL Normal 120 - 200 mg/dL [facility] Cholesterol in HDL [Mass/Vol] 52 mg/dL Invalid Interpretation Code [facility] Cholesterol in LDL [Mass/Vol] 73 mg/dL Normal <=129mg/dL [facility] Cholesterol in VLDL [Mass/Vol] 12 mg/dL Normal 7 - 40 mg/dL [facility] CO2 [Moles/Vol] 29 mmol/L Normal 21 - 31 mmol/L [facility] Creatinine [Mass/Vol] 1.0 mg/dL Normal 0.5 - 1.3 mg/dL [facility] GFR/1.73 sq M.predicted among blacks MDRD (S/P/Bld) [Vol rate/Area] mL/min/1.73 m2 Normal >=59mL/min/1.73 m2 [facility] Chem S GFR/1.73 sq M.predicted among non-blacks MDRD (S/P/Bld) [Vol rate/Area] mL/min/1.73 m2 Normal >=59mL/min/1.73 m2 [facility] Chem S Globulin (S) [Mass/Vol] 2.2 g/dL Normal 1.4 - 4.0 gm/dL [facility] Glucose [Mass/Vol] 91 mg/dL Normal 55 - 199 mg/dL [facility] Potassium [Moles/Vol] 4.2 mmol/L Normal 3.5 - 5.3 mmol/L [facility] Prostate specific Ag [Mass/Vol] 2.4 ng/mL Normal 0.1 - 3.5 ng/mL [facility] Protein [Mass/Vol] 6.9 g/dL Normal 6.0 - 7.8 gm/dL [facility] Remisol Sodium [Moles/Vol] 137 mmol/L Normal 135 - 145 mmol/L [facility] Triglyceride [Mass/Vol] 61 mg/dL Normal <=149mg/dL [facility] Urea nitrogen [Mass/Vol] 17 mg/dL Normal 5 - 21 mg/dL [facility] Urea nitrogen/Creatinine [Mass ratio] 17 mg/mg Normal 10 - 20 [facility] Remisol COAGULATIONOrdered By: Donnie Mcmullen on 06-27-2022 INR Coag (PPP) [Relative time] 2.0 {INR} Invalid Interpretation Code [facility] Auto Coag PT Coag (PPP) [Time] 22.3 s High 9.4 - 12.5 second(s) [facility] Auto Coag HEMATOLOGYOrdered By: SYSTEM SYSTEM on 06-27-2022 Basophils/100 WBC (Bld) 0.2 % Normal 0.0 - 2.0 % [facility] HemeAutoSS Basophils/Leukocyte s Auto (Bld) [Pure # fraction] 0.0 E9/L Normal 0.0 - 0.2 E9/L [facility] Eosinophils/100 WBC (Bld) 2.3 % Normal 0.0 - 8.0 % [facility] Eosinophils/Leukocy lara Auto (Bld) [Pure # fraction] 0.1 E9/L Normal 0.0 - 0.5 E9/L [facility] Lymphocytes/100 WBC (Bld) 19.1 % Normal 14.0 - 50.0 % [facility]eAutoSS Lymphocytes/Leukocy lara Auto (Bld) [Pure # fraction] 1.0 E9/L Normal 1.0 - 4.0 E9/L [facility] Monocytes/100 WBC (Bld) 6.3 % Normal 4.0 - 14.0 % [facility] Monocytes/Leukocyte s Auto (Bld) [Pure # fraction] 0.3 E9/L Normal 0.2 - 1.0 E9/L [facility] Neutrophils/100 WBC (Bld) 72.1 % Normal 36.0 - 75.0 % [facility] Neutrophils/Leukocy lara Auto (Bld) [Pure # fraction] 3.9 E9/L Normal 2.0 - 7.5 E9/L [facility] HEMATOLOGYOrdered By: Dajuan Reich on 06-27-2022 Erythrocyte distribution width (RBC) [Ratio] 13.5 % Normal 10.9 - 14.2 % [facility] Hematocrit (Bld) [Volume fraction] 43.7 % Normal 37.7 - 49.0 % [facility] Hemoglobin (Bld) [Mass/Vol] 14.9 g/dL Normal 13.5 - 17.5 gm/dL [facility] MCH (RBC) [Entitic mass] 32.5 pg Normal 27.0 - 34.0 pg [facility] MCHC (RBC) [Mass/Vol] 34.0 g/dL Normal 31.4 - 36.0 gm/dL [facility] MCV (RBC) [Entitic vol] 95.6 fL Normal 80.0 - 100.0 fL [facility] Platelet mean volume (Bld) [Entitic vol] 8.0 fL Normal 6.4 - 10.8 fL [facility] Platelets (Bld) [#/Vol] 211.0 E9/L Normal 150.0 - 500.0 E9/L [facility] RBC (Bld) [#/Vol] 4.6 E12/L Normal 4.3 - 5.9 E12/L [facility] WBC corrected for nucl RBC Auto (Bld) [#/Vol] 5.4 E9/L Normal 4.0 - 11.0 E9/L [facility] COAGULATIONOrdered By: Aric Davis on 05-21-2022 INR Coag (PPP) [Relative time] 3.7 {INR} Invalid Interpretation Code [facility] Auto Coag PT Coag (PPP) [Time] 43.6 s High 9.4 - 12.5 second(s) [facility] Auto Coag COAGULATIONOrdered By: Victorina Lai on 05-09-2022 INR Coag (PPP) [Relative time] 4.0 {INR} Invalid Interpretation Code [facility] Auto Coag PT Coag (PPP) [Time] 47.1 s High 9.4 - 12.5 second(s) [facility] Auto Coag CHEMISTRYOrdered By: SYSTEM SYSTEM on 01-28-2022 Albumin [Mass/Vol] 4.5 g/dL Normal 3.3 - 5.0 gm/dL [facility] Albumin/Globulin [Mass ratio] 1.8 {ratio} Normal 1.1 - 2.2 [facility] ALP [Catalytic activity/Vol] 48 [iU]/d Normal 21 - 98 Int._Unit/L [facility] ALT No additional P-5'-P [Catalytic activity/Vol] 21 [iU]/d Normal 6 - 46 Int._Unit/L [facility] Anion gap [Moles/Vol] 13 mmol/L Normal 6 - 16 mEq/L [facility] AST [Catalytic activity/Vol] 21 [iU]/d Normal 5 - 43 Int._Unit/L [facility] Bilirubin [Mass/Vol] 1.1 mg/dL Normal 0.0 - 1.1 mg/dL [facility] Calcium [Mass/Vol] 9.1 mg/dL Normal 8.9 - 11.1 mg/dL [facility] Chloride [Moles/Vol] 104 mmol/L Normal 101 - 111 mmol/L [facility] Cholesterol [Mass/Vol] 141 mg/dL Normal 120 - 200 mg/dL [facility] Cholesterol in HDL [Mass/Vol] 53 mg/dL Invalid Interpretation Code [facility] Cholesterol in LDL [Mass/Vol] 77 mg/dL Normal <=129mg/dL [facility] Cholesterol in VLDL [Mass/Vol] 13 mg/dL Normal 7 - 40 mg/dL [facility] CO2 [Moles/Vol] 26 mmol/L Normal 21 - 31 mmol/L [facility] Creatinine [Mass/Vol] 1.0 mg/dL Normal 0.5 - 1.3 mg/dL [facility] GFR/1.73 sq M.predicted among blacks MDRD (S/P/Bld) [Vol rate/Area] mL/min/1.73 m2 Normal >=59mL/min/1.73 m2 [facility] Chem S GFR/1.73 sq M.predicted among non-blacks MDRD (S/P/Bld) [Vol rate/Area] mL/min/1.73 m2 Normal >=59mL/min/1.73 m2 [facility] Chem S Globulin (S) [Mass/Vol] 2.5 g/dL Normal 1.4 - 4.0 gm/dL [facility] Glucose [Mass/Vol] 86 mg/dL Normal 55 - 199 mg/dL [facility] Potassium [Moles/Vol] 4.1 mmol/L Normal 3.5 - 5.3 mmol/L [facility] Protein [Mass/Vol] 7.0 g/dL Normal 6.0 - 7.8 gm/dL [facility] Remisol Sodium [Moles/Vol] 139 mmol/L Normal 135 - 145 mmol/L [facility] Triglyceride [Mass/Vol] 63 mg/dL Normal <=149mg/dL [facility] Urea nitrogen [Mass/Vol] 17 mg/dL Normal 5 - 21 mg/dL [facility] Urea nitrogen/Creatinine [Mass ratio] 17 mg/mg Normal 10 - 20 [facility] COAGULATIONOrdered By: Victorina Lai on 01-28-2022 INR Coag (PPP) [Relative time] 2.9 {INR} Invalid Interpretation Code [facility] Auto Coag PT Coag (PPP) [Time] 34.6 s High 10.2 - 12.9 second(s) [facility] Auto Coag HEMATOLOGYOrdered By: SYSTEM SYSTEM on 01-28-2022 Basophils/100 WBC (Bld) 0.3 % Normal 0.0 - 2.0 % [facility] HemeAutoSS Basophils/Leukocyte s Auto (Bld) [Pure # fraction] 0.0 E9/L Normal 0.0 - 0.2 E9/L [facility] Eosinophils/100 WBC (Bld) 2.1 % Normal 0.0 - 8.0 % [facility] Eosinophils/Leukocy lara Auto (Bld) [Pure # fraction] 0.1 E9/L Normal 0.0 - 0.5 E9/L [facility] Lymphocytes/100 WBC (Bld) 19.7 % Normal 14.0 - 50.0 % [facility] Lymphocytes/Leukocy lara Auto (Bld) [Pure # fraction] 0.9 E9/L Low 1.0 - 4.0 E9/L [facility] Monocytes/100 WBC (Bld) 7.1 % Normal 4.0 - 14.0 % [facility] Monocytes/Leukocyte s Auto (Bld) [Pure # fraction] 0.3 E9/L Normal 0.2 - 1.0 E9/L [facility] Neutrophils/100 WBC (Bld) 70.8 % Normal 36.0 - 75.0 % [facility] Neutrophils/Leukocy lara Auto (Bld) [Pure # fraction] 3.3 E9/L Normal 2.0 - 7.5 E9/L [facility] HEMATOLOGYOrdered By: Bertha Franz on 01-28-2022 Erythrocyte distribution width (RBC) [Ratio] 13.6 % Normal 10.9 - 14.2 % [facility] Hematocrit (Bld) [Volume fraction] 44.3 % Normal 37.7 - 49.0 % [facility] Hemoglobin (Bld) [Mass/Vol] 14.9 g/dL Normal 13.5 - 17.5 gm/dL [facility] MCH (RBC) [Entitic mass] 32.1 pg Normal 27.0 - 34.0 pg [facility] MCHC (RBC) [Mass/Vol] 33.6 g/dL Normal 31.4 - 36.0 gm/dL [facility] MCV (RBC) [Entitic vol] 95.6 fL Normal 80.0 - 100.0 fL [facility] Platelet mean volume (Bld) [Entitic vol] 8.0 fL Normal 6.4 - 10.8 fL [facility] Platelets (Bld) [#/Vol] 205.0 E9/L Normal 150.0 - 500.0 E9/L [facility]eAutoSS RBC (Bld) [#/Vol] 4.6 E12/L Normal 4.3 - 5.9 E12/L [facility] HemeAutoSS WBC corrected for nucl RBC Auto (Bld) [#/Vol] 4.6 E9/L Normal 4.0 - 11.0 E9/L [facility]eAutoSS Vital Signs Date Time Vital Sign Value Performing Clinician Patrick akers 04-25-2024 08:27-0400 Diastolic blood pressure 90 mm[Hg] Lou SEBASTIAN-C Work Phone: [facility] 04-25-2024 08:27-0400 Systolic blood pressure 138 mm[Hg] Lou Pacheco PA-C Work Phone: [facility] 04-25-2024 07:50-0400 Body weight 84.64 kg Lou SEBASTIAN-C Work Phone: [facility] 04-25-2024 07:50-0400 Heart rate 62 /min Lou SEBASTIAN-C Work Phone: [facility] 04-25-2024 07:50-0400 Respiratory rate 16 /min Lou SEBASTIAN-C Work Phone: [facility] 04-25-2024 07:50-0400 SaO2% (BldA) [Mass fraction] 99 % Lou SEBASTIAN-C Work Phone: [facility] 04-18-2024 13:51-0400 Blood Pressure Location Phoebe KENNEDY [facility] 04-18-2024 13:51-0400 Diastolic blood pressure 60 mm[Hg] Phoebe KENNEDY [facility] 04-18-2024 13:51-0400 Heart rate 66 /min Phoebe KENNEDY [facility] 04-18-2024 13:51-0400 Respiratory rate 16 /min Phoebe KENNEDY [facility] 04-18-2024 13:51-0400 SaO2% (BldA) [Mass fraction] 97 % Christopher BROWN [facility] 04-18-2024 13:51-0400 Systolic blood pressure 100 mm[Hg] Christopher BROWN [facility] 02-08-2024 12:42-0400 Blood Pressure Location Christopher BROWN [facility] 02-08-2024 12:42-0400 Diastolic blood pressure 80 mm[Hg] Christopher BROWN [facility] 02-08-2024 12:42-0400 Heart rate 65 /min Christopher BROWN [facility] 02-08-2024 12:42-0400 Respiratory rate 16 /min Christopher BROWN [facility] 02-08-2024 12:42-0400 SaO2% (BldA) [Mass fraction] 94 % Christopher BROWN [facility] 02-08-2024 12:42-0400 Systolic blood pressure 120 mm[Hg] Christopher BROWN [facility] 07-22-2023 08:41-0400 Blood Pressure Location Christopher BROWN [facility] 07-22-2023 08:41-0400 Body temperature 98.6 [degF] Christopher BROWN [facility] 07-22-2023 08:41-0400 Diastolic blood pressure 62 mm[Hg] Christopher BROWN [facility] 07-22-2023 08:41-0400 Heart rate 62 /min Christopher BROWN [facility] 07-22-2023 08:41-0400 Respiratory rate 16 /min Christopher BROWN [facility] 07-22-2023 08:41-0400 SaO2% (BldA) [Mass fraction] 96 % Christopher BROWN [facility] 07-22-2023 08:41-0400 Systolic blood pressure 120 mm[Hg] Christopher BROWN [facility] 07-13-2023 09:45-0400 Diastolic blood pressure 78 mm[Hg] Christopher BROWN [facility] 07-13-2023 09:45-0400 Mean blood pressure 95 mm[Hg] Christopher BROWN [facility] 07-13-2023 09:45-0400 Systolic blood pressure 128 mm[Hg] Christopher BROWN [facility] 07-13-2023 09:12-0400 Blood Pressure Location Christopher BROWN [facility] 07-13-2023 09:12-0400 Diastolic blood pressure 80 mm[Hg] Christopher BROWN [facility] 07-13-2023 09:12-0400 Heart rate 62 /min Christopher BROWN [facility] 07-13-2023 09:12-0400 Respiratory rate 16 /min Christopher BROWN [facility] 07-13-2023 09:12-0400 SaO2% (BldA) [Mass fraction] 99 % Phoebe KENNEDY [facility] 07-13-2023 09:12-0400 Systolic blood pressure 134 mm[Hg] Phoebe KENNEDY [facility] 07-12-2023 13:23-0400 Body temperature 97.59 [degF] Elle Corbey PA-C Work Phone: [facility] 07-12-2023 13:23-0400 Diastolic blood pressure 83 mm[Hg] Elle Corbey PA-C Work Phone: [facility] 07-12-2023 13:23-0400 Heart rate 60 /min Elle Corbey PA-C Work Phone: [facility] 07-12-2023 13:23-0400 Respiratory rate 16 /min Elle Corbey PA-C Work Phone: [facility] 07-12-2023 13:23-0400 SaO2% (BldA) [Mass fraction] 95 % Elle Corbey PA-C Work Phone: [facility] 07-12-2023 13:23-0400 Systolic blood pressure 135 mm[Hg] Elle Corbey PA-C Work Phone: [facility] 07-15-2022 08:30-0400 Blood Pressure Location Eric RICE [facility] 07-15-2022 08:30-0400 Diastolic blood pressure 73 mm[Hg] Eric RICE [facility] 07-15-2022 08:30-0400 Heart rate 62 /min Eric RICE [facility] 07-15-2022 08:30-0400 Respiratory rate 16 /min Eric RICE [facility] 07-15-2022 08:30-0400 Systolic blood pressure 127 mm[Hg] Eric ENID [facility] 07-07-2022 11:38-0400 Blood Pressure Location Phoebe BEATRIS [facility] 07-07-2022 11:38-0400 Diastolic blood pressure 80 mm[Hg] Christopher BROWN [facility] 07-07-2022 11:38-0400 Heart rate 58 /min Christopher BROWN [facility] 07-07-2022 11:38-0400 Respiratory rate 16 /min Christlexii BROWN [facility] 07-07-2022 11:38-0400 SaO2% (BldA) [Mass fraction] 96 % Christadeolaer BROWN [facility] 07-07-2022 11:38-0400 Systolic blood pressure 130 mm[Hg] Christopher BROWN [facility] 07-04-2022 11:43-0400 Blood Pressure Location Phoebe BEATRIS [facility] 07-04-2022 11:43-0400 Body temperature 98.42 [degF] Christopher BROWN [facility] 07-04-2022 11:43-0400 Diastolic blood pressure 58 mm[Hg] Christopher BROWN [facility] 07-04-2022 11:43-0400 Heart rate 59 /min Christopher BROWN [facility] 07-04-2022 11:43-0400 SaO2% (BldA) [Mass fraction] 96 % Phoebe KENNEDY [facility] 07-04-2022 11:43-0400 Systolic blood pressure 112 mm[Hg] Phoebe KENNEDY [facility] 02-07-2022 11:38-0400 Blood Pressure Location Phoebe KENNEDY [facility] [place] 02-07-2022 11:38-0400 Diastolic blood pressure 80 mm[Hg] Phoebe KENNEDY [facility] 02-07-2022 11:38-0400 Heart rate 65 /min Phoebe KENNEDY [facility] [place] 02-07-2022 11:38-0400 Respiratory rate 16 /min Phoebe KENNEDY [facility] [place] 02-07-2022 11:38-0400 SaO2% (BldA) [Mass fraction] 94 % Phoebe KENNEDY [facility] 02-07-2022 11:38-0400 Systolic blood pressure 130 mm[Hg] Phoebe KENNEDY [facility] [place] Encounters Encounter Date Encounter Type Care Provider Facility Start: 07-04-2024 ambulatory [place] Valladares ty:[facility] [place] Start: 06-24-2024 ambulatory Phoebe Chamberlain ity:JOSÉ Aragon Start: 05-20-2024 ambulatory Montana Valladares ty:KASSIE Betancourt Start: 05-02-2024 ambulatory Montana CARTAGENA Bulmaroi ty:[facility] [place] Start: 04-28-[address] FARTUN Bulmaroi ty:[id number] Start: 04-25-2024 End: 04-25-2024 Office outpatient new 45 minutes Lou Pacheco PA-C Work Phone: [facility] Comment on above: Paroxysmal atrial fi brillation (HCC) (Primary Dx); Encounter to establish care; History of DVT (deep vein thrombosis); Poison renee dermatitis; Wellness examination; Periodic health assessment, general screening, adult; Prostate cancer screening Start: 04-25-2024 End: 04-25-2024 Patient encounter status Lou Pacheco PA-C Work Phone: [facility] Start: 04-25-2024 End: 04-25-2024 ambulatory LOU VILLALOBOS [facility] Start: 04-25-2024 End: 04-25-2024 Encounter for general adult medical examination without abnormal findings LOU VILLALOBOS [facility] Start: 04-18-2024 End: 04-18-2024 ambulatory Phoeeb KENNEDY Facility:[facility] Start: 04-18-2024 End: 04-18-2024 Patient encounter procedure Phoebe KENNEDY [facility] [place] Start: 03-28-2024 End: 04-01-2024 ambulatory PHOEBE KENNEDY [facility] Start: 03-01-2024 End: 03-01-2024 ambulatory [place] CARTAGENA Facility:[facility] Start: 03-01-2024 End: 03-01-2024 Patient encounter procedure [place] CARTAGENA [facility] Start: 02-08-2024 End: 02-08-2024 ambulatory Phoebe KENNEDY Facility:[facility] Start: 02-08-2024 End: 02-08-2024 Patient encounter procedure Phoebe KENNEDY [facility] [place] Start: 02-05-2024 End: 02-05-2024 ambulatory aSmirlexii KENNEDY Facility:[facility] Start: 02-05-2024 End: 02-05-2024 Lab Drop off Phoebe KENNEDY [facility] Start: 02-05-2024 End: 02-05-2024 ambulatory Jbblanco KENNEDY Facility: [place] Start: 02-05-2024 End: 02-05-2024 Patient encounter procedure Phoebe KENNEDY [facility] [place] Start: 02-02-2024 End: 02-02-2024 ambulatory Montanasen CARTAGENA Facility:[facility] Start: 02-02-2024 End: 02-02-2024 Patient encounter procedure Montanasen CARTAGENA [facility] Start: 07-28-2023 End: 07-28-2023 ambulatory Montanasen CARTAGENA Facility:[facility] Start: 07-24-2023 End: 07-24-2023 ambulatory Montanasen CARTAGENA Facility:[facility] [place] Start: 07-22-2023 End: 07-22-2023 ambulatory Phoebe KENNEDY Facility:[facility] [place] Start: 07-22-2023 End: 07-22-2023 Patient encounter procedure Phoebe KENNEDY [facility] [place] Start: 07-14-2023 ambulatory Eric Anderson ENID Facility: [facility] [place] Start: 07-13-2023 End: 07-13-2023 ambulatory Samirlexii KENNEDY Facility:[facility] [place] Start: 07-13-2023 End: 07-13-2023 Patient encounter procedure Samirlexii KENNEDY [facility] [place] Start: 07-12-2023 End: 07-12-2023 Office outpatient new 30 minutes Elle Taylor PA-C Work Phone: [facility] [place] Comment on above: Laceration of right index finger w/o foreign body w/o damage to nail, initial encounter (Primary Dx) Start: 07-10-2023 End: 07-10-2023 Lab Drop off Phoebe KENNEDY [facility] Start: 07-10-2023 End: 07-10-2023 ambulatory Phoebe KENNEDY Facility:[facility] Start: 07-10-2023 End: 07-10-2023 Patient encounter procedure Phoebe KENNEDY [facility] [place] Start: 07-03-2023 End: 07-03-2023 ambulatory Phoebe KENNEDY Facility:[facility] Start: 04-13-2023 End: 04-13-2023 Lab Drop off Samirlexii KENNEDY [facility] Start: 04-13-2023 End: 04-13-2023 Patient encounter procedure Phoebe KENNEDY [facility] [place] Start: 01-26-2023 End: 01-26-2023 Patient encounter procedure Phoebe KENNEDY [facility] [place] Start: 07-16-2022 End: 07-16-2022 Patient encounter procedure Phoebe KENNEDY [facility] [place] Start: 07-15-2022 End: 07-15-2022 Patient encounter procedure Eric CASTANEDA [facility] Start: 07-07-2022 End: 07-07-2022 Patient encounter procedure Samirlexii KENNEDY [facility] Start: 07-04-2022 End: 07-04-2022 Patient encounter procedure Phoebe KENNEDY [facility] Start: 07-04-2022 End: 07-04-2022 Well adult monitoring check done hPoebe KENNEDY [facility] Start: 06-27-2022 End: 06-27-2022 Lab Drop off Phoebe KENNEDY [facility] Start: 06-27-2022 End: 06-27-2022 Patient encounter procedure Phoebe KENNEDY [facility] [place] Start: 05-21-2022 End: 05-21-2022 Lab Drop off Phoebe KENNEDY [facility] Start: 05-09-2022 End: 05-09-2022 Lab Drop off Phoebe KENNEDY [facility] Start: 05-09-2022 End: 05-09-2022 Patient encounter procedure hPoebe KENNEDY [facility] [place] Start: 02-07-2022 End: 02-07-2022 Patient encounter procedure Phoebe KENNEDY [facility] Start: 01-28-2022 End: 01-28-2022 Lab Drop off Phoebe KENNEDY [facility] Procedures Date Procedure Procedure Detail Performing Clinician Start: 07-12-2023 Simple repair scalp/neck/ax/genit/trunk 2.5cm/< Elle Taylor PA-C Work Phone: Start: 04-28-2018 Transurethral insertion of prostatic urethral lift implant Phoebe KENNEDY Comment on above: 4 implants Start: 03-17-2018 Cystoscopy Phoebe KENNEDY Start: 02-13-2016 Cystoscopy Phoebe KENNEDY Start: 02-11-2013 Colonoscopy Elle Taylor PA-C Work Phone: Start: 02-11-2013 Colonoscopy Phoebe KENNEDY Start: 02-11-2013 Esophagogastroduodenoscopy Phoebe GO Start: 03-01-2005 Rotator cuff including muscles and tendons (body structure) Phoebe KENNEDY Start: 03-01-1997 [place] filter, device (physical object) Phoebe KENNEDY Tonsillectomy and adenoidectomy Phoebe KENNEDY Plan of Treatment Date Care Activity Detail Author Start: 01-30-2033 Tetanus vaccination Tetanus: Every 10yrs [facility] Start: 04-25-2025 Depression screening using PHQ-9 (Patient Health Questionnaire 9) score Depression Screening/Follow-Up (PHQ-2/9) [facility] Start: 07-06-2024 End: 07-06-2024 Patient encounter procedure 07/06/2024 9:30 AM EDT Office Visit [facility] [address] [place] [id number] Lou Pacheco PA-C [address] [place] [address] [facility] Start: 05-29-2024 Influenza vaccination Influenza Vaccine (#1) [facility] Start: 05-12-2024 End: 05-12-2024 Patient encounter procedure 05/12/2024 9:00 AM EDT Anticoag visit [facility] [address] [facility] [place] [address] Lou Pacheco, YUNI [address] [place] [address] [facility] Start: 05-09-2024 End: 05-09-2024 Patient encounter procedure 05/09/2024 7:30 AM EDT Appointment [facility] [address] [place] [address] Lou Pacheco, YUNI [address] [place] [address] [facility] Start: 12-03-2023 COVID-19 Vaccine ( season) COVID-19 Vaccine ( season) [facility] Start: 07-30-2023 Administration of herpes zoster vaccine Zoster Vaccines (3 of 3) [facility] Start: 05-29-2023 COVID-19 Vaccine ( season) COVID-19 Vaccine ( season) [facility] Start: 02-11-2023 Screening for malignant neoplasm of colon [facility] Start: 2015 Fall risk assessment Falls Risk Assessment [facility] Start: 2000 Screening for malignant neoplasm of colon Flexible sigmoidoscopy [facility] Start: 1968 Hepatitis C screening Hepatitis C Screening [facility] Start: 1962 Depression screening using PHQ-9 (Patient Health Questionnaire 9) score Depression Screening (PHQ-2/9) [facility] Start: 1953 History and physical examination, annual for health maintenance Wellness Visit [facility] Start: 1953 Medicare Wellness Visit Medicare Wellness Visit [facility] Start: 1950 Prostate specific antigen measurement PSA Level [facility] Start: 1950 Screening for malignant neoplasm of colon [facility] End: 06-26-2025 Echocardiography Echocardiogram complete Echocardiography Routine Paroxysmal atrial fibrillation (HCC) 1 Occurrences starting 04/25/2024 until 06/26/2025 [facility] Comment on above: 1 Occurrences starting 04/25/2024 until 06/26/2025 End: 04-25-2025 Hemoglobin A1c/Hemoglobin.total in Blood Hemoglobin A1c Lab Routine Periodic health assessment, general screening, adult 1 Occurrences starting 04/25/2024 until 04/25/2025 [facility] Comment on above: 1 Occurrences starting 04/25/2024 until 04/25/2025 End: 04-26-2025 Hepatitis C antibody measurement Hepatitis C Antibody Lab Routine Periodic health assessment, general screening, adult 1 Occurrences starting 04/25/2024 until 04/26/2025 [facility] Comment on above: 1 Occurrences starting 04/25/2024 until 04/26/2025 End: 04-25-2025 Human immunodeficiency virus antibody test HIV 1/2 Screen (4th Generation) Lab Routine Periodic health assessment, general screening, adult 1 Occurrences starting 04/25/2024 until 04/25/2025 [facility] Comment on above: 1 Occurrences starting 04/25/2024 until 04/25/2025 End: 05-26-2024 INR in Platelet poor plasma by Coagulation assay PT/INR Lab Routine History of DVT (deep vein thrombosis) 12 Occurrences starting 04/25/2024 until 05/26/2024 [facility] Comment on above: 12 Occurrences starting 04/25/2024 until 05/26/2024 End: 04-22-2025 Prostate specific Ag [Mass/volume] in Serum or Plasma PSA, Screen Lab Routine Prostate cancer screening 1 Occurrences starting 04/25/2024 until 04/22/2025 [facility] Work Phone: Comment on above: 1 Occurrences starting 04/25/2024 until 04/22/2025 End: 04-25-2025 Thyrotropin [Units/volume] in Serum or Plasma TSH with Reflex Free T4 Lab Routine Periodic health assessment, general screening, adult 1 Occurrences starting 04/25/2024 until 04/25/2025 [facility] Comment on above: 1 Occurrences starting 04/25/2024 until 04/25/2025 Immunizations Immunization Date Immunization Notes Care Provider Kwadwo chan 08-04-2023 zoster vaccine austin KENNEDY [facility] 07-03-2023 influenza, high dose seasonal, preservative-free Phoebe KENNEDY [facility] Comment on above: Early/Late Reason: E esther/Late Reason: Nursing Judgment 07-03-2023 influenza virus vaccine, unspecified formulation Lou Pacheco PA-C Work Phone: [facility] 06-04-2023 pneumococcal 20-lydia nt conjugate vaccine Phoebe KENNEDY [facility] 06-04-2023 zoster vaccine recombinant Christadeolablanco BEATRIS [facility] 01-30-2023 tetanus toxoid, redu radames diphtheria toxoid, and acellular pertussis vaccine, adsorbed Christlexii BEATRIS [facility] 07-16-2022 COVID-19, mRNA, LNP- S, PF, 100 mcg or 50 mcg dose Phoebe BEATRIS [facility] 07-04-2022 influenza virus vaccine, unspecified formulation Samiradeolablanco KENNEDY [facility] 07-04-2022 influenza, high dose seasonal, preservative-free Jbblanco KENNEYD [facility] 02-14-2022 SARS-CoV-2 (COVID-19 ) mRNA-1273 vaccine Eric CASTANEDA [facility] 07-22-2021 SARS-CoV-2 (COVID-19 ) mRNA-1273 vaccine Jbblanco KENNEDY [facility] 07-22-2021 influenza, high dose seasonal, preservative-free Jbblanco KENNEDY [facility] 11-10-2020 SARS-CoV-2 (COVID-19 ) mRNA-1273 vaccine Phoebe KENNEDY [facility] Comment on above: Result Comment: gvn in [place] 10-13-2020 SARS-CoV-2 (COVID-19 ) mRNA-1273 vaccine Phoebe KENNEDY [facility] Comment on above: Result Comment: [place]vn in [place] 07-06-2020 influenza, high dose seasonal, preservative-free Samiropher BEATRIS [facility] 07-15-2019 influenza, high dose seasonal, preservative-free Christopher [employer] [facility] Comment on above: Early/Late Reason: N ursing Judgment 07-06-2019 influenza, high dose seasonal, preservative-free Jber [employer] [facility] Comment on above: Result Comment: vincento r in charting. Need to correct 02-09-2019 influenza virus vaccine, unspecified formulation Phoebe KENNEDY [facility] 07-12-2018 influenza virus vaccine, unspecified formulation Phoebe [employer] [facility] 09-03-2017 pneumococcal polysaccharide vaccine, 23 valent Phoebe KENNEDY [facility] 07-06-2017 influenza virus vaccine, unspecified formulation Eric RICE [facility] 06-25-2016 influenza virus vaccine, unspecified formulation Eric RICE [facility] 07-26-2015 pneumococcal conjuga te vaccine, 13 valent Phoebe KENNEDY [facility] 06-06-2011 zoster vaccine, live Devin jelani KENNEDY [facility] Payers Date Payer Category Payer Unknown [employer]MO [employer] [place] [employer] [id number] 2021-Present [phone] [address] [place] [address] [id number] 2021 Unknown [id number] 2015 Medicare MEDICARE MEDICAR E PART A & B [id number] 2015-Present [phone] CGS [id number] PART A CLAIMS [address] [address] [place] [address] [id number] 2015 Medicare [id number] 1950 Unknown [id number] [id number]0 1950 Unknown [id number] 2.16.840.1.617217.3.579.2.727 1950 Unknown [id number] 2.16.840.1.595374.3.579.2.727 1950 Unknown [id number] 2.16.840.1.495362.3.579.2.727 1950 Unknown [id number] 2.16.840.1.379283.3.579.2.727 1950 Unknown [id number] 2.16.840.1.544125.3.579.2.727 1950 Unknown [id number] 2.16.840.1.753308.3.579.2.727 1950 Unknown [id number] 2.16.840.1.033519.3.579.2.727 1950 Unknown [id number] 2.16.840.1.148374.3.579.2.727 1950 Unknown [id number] 2.16.840.1.151521.3.579.2. 1950 Unknown [id number] 2.16.840.1.479901.3.579.2. 1950 Unknown [id number] 2.16.840.1.445495.3.579.2. 1950 Unknown [id number] 2.16.840.1.458054.3.579.2. 1950 Unknown [id number] 2.16.840.1.385842.3.579.2. 1950 Unknown [id number] 2.16.840.1.253509.3.579.2. 1950 Unknown [id number] 2.16.840.1.057271.3.579.2. 1950 Unknown [id number] 2.16.840.1.979276.3.579.2. 1950 Unknown [id number] 2.16.840.1.098871.3.579.2. 1950 Unknown [id number] 2.16.840.1.791037.3.579.2. 1950 Unknown [id number] 2.16.840.1.479152.3.579.2 1950 Unknown [id number] 2.16.840.1.065882.3.579.2. 1950 Unknown [id number] 2.16.840.1.876673.3.579.2 1950 Unknown [id number] 2.16.840.1.968145.3.579.2.903 Social History Date Type Detail Facility Start: 07-22-2021 End: 04-18-2024 Tobacco smoking status Never smoked tobacco (finding) [facility] Comment on above: Denies use. Tobacco smoking status Never [facility] Comment on above: Denies use. Start: 04-25-2024 Sex Assigned At Male F [facility] Tobacco smoking status NHIS Tobacco smoking consumption unknown [facility] Start: 1950 Sex Assigned At Not on file O [facility] Start: 04-25-2024 History of Social function [facility] Functional Status Date Assessment Result Facility 04-18-2024 Functional Status N/A [facility] 02-08-2024 Functional Status N/A [facility] 02-02-2024 Functional Status N/A [facility] 07-22-2023 Functional Status N/A [facility] 07-13-2023 Functional Status N/A [facility] 07-15-2022 Functional Status N/A [facility] 07-07-2022 Functional Status N/A [facility] 07-04-2022 Functional Status N/A [facility] Clinical Notes 02-06-2022 to 04-25-2024 Lou Pacheco PA-C - 04/25/2024 8:00 AM EDTPatient InstructionsAttachElle Liu PA-C - 07/12/2023 1:29 PM EDTLaboratoryLaboratoryLaboratoryLaboratoryLaboratoryLaboratoryLaboratory Note Date & Type Note Facility 04-25-2024 History of Present illness Narrative 04/25/2024 Amee Rai is a 74 y.o. male HPI Patient presents to establish care as a new patient. Reports lives in [place] 6 months out of the year. States usually comes back to [place] in December then leaves in June. Has known history of paroxysmal atrial fibrillation on cardizem and Coumadin. INR in January 2.4. [facility] PCP usually follows (not currently going to any coumadin clinic). Does have plans for TURP procedure on and is to hold Coumadin. Also notes has poison renee on bilateral forearms. Was cutting weeds and started rash yesterday. No chest pain or SOB. Is very active. Walks a mile regularly; no difficulty with this but notes ARAUJO this weekend with stair climbing while helping daughter move. States last stress test over 20 years ago. No current CP or SOB. States BP always elevated as has white coat syndrome Patient currently ; is retired. Previous PCP Alex Kennedy and managed his INR as well as his A.Fib. States knows when he is in A. Fib. Social History Tobacco Use Smoking Status Not on file Smokeless Tobacco Not on file Social History Social History Narrative Not on file Current Outpatient Medications on File Prior to Visit Medication Sig Dispense Refill diltiazem (CARDIZEM CD) 180 MG 24 hr capsule omeprazole (PRILOSEC) 40 MG capsule Take 1 (one) capsule (40 mg total) by mouth . pravastatin (PRAVACHOL) 20 MG tablet Take 1 (one) tablet (20 mg total) by mouth . warfarin (COUMADIN) 5 MG tablet Take 1 (one) tablet (5 mg total) by mouth . No current facility-administered medications on file prior to visit. History reviewed. No pertinent family history. Patient Active Problem List Diagnosis BPH with obstruction/lower urinary tract symptoms Chronic atrial fibrillation (HCC) Hyperlipemia, mixed Peripheral venous insufficiency Paroxysmal atrial fibrillation (HCC) History of DVT (deep vein thrombosis) No Known Allergies ROS Review of Systems Constitutional: Negative for chills and fever. HENT: Negative for ear discharge and rhinorrhea. Eyes: Negative for pain. Respiratory: Negative. Negative for cough and shortness of breath. Gastrointestinal: Negative for abdominal pain, diarrhea, nausea and vomiting. Genitourinary: Negative for dysuria and flank pain. Musculoskeletal: Negative. Negative for gait problem. Skin: Positive for rash. Neurological: Negative for dizziness, tremors and numbness. Psychiatric/Behavioral: Negative. Negative for behavioral problems. All other systems reviewed and are negative. Physical BP (!) 138/90 Pulse 62 Resp 16 Wt 84.6 kg (186 lb 9.6 oz) SpO2 99% Physical Exam Vitals and nursing note reviewed. HENT: Head: Normocephalic and atraumatic. Right Ear: Tympanic membrane normal. Left Ear: Tympanic membrane normal. Neck: Thyroid: Thyromegaly present. Comments: Patient reports known enlarged thyroid Cardiovascular: Rate and Rhythm: Normal rate and regular rhythm. Pulses: Normal pulses. Heart sounds: Normal heart sounds. Pulmonary: Effort: Pulmonary effort is normal. No respiratory distress. Breath sounds: Normal breath sounds. No stridor. No wheezing or rhonchi. Abdominal: General: Abdomen is flat. Bowel sounds are normal. There is no distension. Palpations: There is no mass. Tenderness: There is no abdominal tenderness. Hernia: No hernia is present. Musculoskeletal: Cervical back: Normal range of motion. Skin: General: Skin is warm. Capillary Refill: Capillary refill takes less than 2 seconds. Findings: Rash (Bilateral volar forearms with contact dermatitis; covered in clamamine.) present. Neurological: General: No focal deficit present. Mental Status: He is alert and oriented to person, place, and time. Mental status is at baseline. Motor: No weakness. Gait: Gait normal. Psychiatric: Mood and Affect: Mood normal. Thought Content: Thought content normal. Assessment and Plan Paroxysmal A. Fib - on Warfarin - last INR 2.4 - provided referral to Coumadin clinic as just moved to area - not in fib now - walks 1 mile regularly; no SOB/CP - moved daughter this weekend and steps seemed to bother me - EKG performed at urology- NSR last week per patient (not in system) - Echo ordered - last stress test > 20 years ago - Echo ordered - has Oscar filter (08/03/97) Establish care - needs Medicare wellness - Cologuard completed 3 months ago - states was negative - PSA ordered - basic labs - Eye exam in February - Reviewed CBC, CMP, lipid panel in January Keep BP measurements at home States white coat syndrome For any new medications prescribed today, patient was educated about indications for the medication, how to take the medication and potential side effects of the medications. I recommended calling the office if there are any new or worsening complaints regarding today's visit. All questions were answered. Patient care instructions and AVS provided. 04/25/2024 8:50 AM Depression Screening Little interest or pleasure in doing things 0 Feeling down, depressed, or hopeless 0 PHQ-2 Total Score 0 documented in this encounter [facility] 04-25-2024 Note 04/25/2024 Amee Rai is a 74 y.o. male HPI Patient presents to establish care as a new patient. Reports lives in [place] 6 months out of the year. States usually comes back to [place] in December then leaves in June. Has known history of paroxysmal atrial fibrillation on cardizem and Coumadin. INR in January 2.4. States PCP usually follows (not currently going to any coumadin clinic). Does have plans for TURP procedure on and is to hold Coumadin. Also notes has poison renee on bilateral forearms. Was cutting weeds and started rash yesterday. No chest pain or SOB. Is very active. Walks a mile regularly; no difficulty with this but notes ARAUJO this weekend with stair climbing while helping daughter move. States last stress test over 20 years ago. No current CP or SOB. States BP always elevated as has white coat syndrome Patient currently ; is retired. Previous PCP Alex Kennedy and managed his INR as well as his A.Fib. States knows when he is in A. Fib. Social History Tobacco Use Smoking Status Not on file Smokeless Tobacco Not on file Social History Social History Narrative - Not on file Current Outpatient Medications on File Prior to Visit Medication Sig Dispense Refill - diltiazem (CARDIZEM CD) 180 MG 24 hr capsule - omeprazole (PRILOSEC) 40 MG capsule Take 1 (one) capsule (40 mg total) by mouth . - pravastatin (PRAVACHOL) 20 MG tablet Take 1 (one) tablet (20 mg total) by mouth . - warfarin (COUMADIN) 5 MG tablet Take 1 (one) tablet (5 mg total) by mouth . No current facility-administered medications on file prior to visit. History reviewed. No pertinent family history. Patient Active Problem List Diagnosis - BPH with obstruction/lower urinary tract symptoms - Chronic atrial fibrillation (HCC) - Hyperlipemia, mixed - Peripheral venous insufficiency - Paroxysmal atrial fibrillation (HCC) - History of DVT (deep vein thrombosis) No Known Allergies ROS Review of Systems Constitutional: Negative for chills and fever. HENT: Negative for ear discharge and rhinorrhea. Eyes: Negative for pain. Respiratory: Negative. Negative for cough and shortness of breath. Gastrointestinal: Negative for abdominal pain, diarrhea, nausea and vomiting. Genitourinary: Negative for dysuria and flank pain. Musculoskeletal: Negative. Negative for gait problem. Skin: Positive for rash. Neurological: Negative for dizziness, tremors and numbness. Psychiatric/Behavioral: Negative. Negative for behavioral problems. All other systems reviewed and are negative. Physical BP (!) 138/90 Pulse 62 Resp 16 Wt 84.6 kg (186 lb 9.6 oz) SpO2 99% Physical Exam Vitals and nursing note reviewed. HENT: Head: Normocephalic and atraumatic. Right Ear: Tympanic membrane normal. Left Ear: Tympanic membrane normal. Neck: Thyroid: Thyromegaly present. Comments: Patient reports known enlarged thyroid Cardiovascular: Rate and Rhythm: Normal rate and regular rhythm. Pulses: Normal pulses. Heart sounds: Normal heart sounds. Pulmonary: Effort: Pulmonary effort is normal. No respiratory distress. Breath sounds: Normal breath sounds. No stridor. No wheezing or rhonchi. Abdominal: General: Abdomen is flat. Bowel sounds are normal. There is no distension. Palpations: There is no mass. Tenderness: There is no abdominal tenderness. Hernia: No hernia is present. Musculoskeletal: Cervical back: Normal range of motion. Skin: General: Skin is warm. Capillary Refill: Capillary refill takes less than 2 seconds. Findings: Rash (Bilateral volar forearms with contact dermatitis; covered in clamamine.) present. Neurological: General: No focal deficit present. Mental Status: He is alert and oriented to person, place, and time. Mental status is at baseline. Motor: No weakness. Gait: Gait normal. Psychiatric: Mood and Affect: Mood normal. Thought Content: Thought content normal. Assessment and Plan Paroxysmal A. Fib - on Warfarin - last INR 2.4 - provided referral to Coumadin clinic as just moved to area - not in fib now - walks 1 mile regularly; no SOB/CP - moved daughter this weekend and steps seemed to bother me - EKG performed at urology- NSR last week per patient (not in system) - Echo ordered - last stress test > 20 years ago - Echo ordered - has Cambridge filter (08/03/97) Establish care - needs Medicare wellness - Cologuard completed 3 months ago - states was negative - PSA ordered - basic labs - Eye exam in February - Reviewed CBC, CMP, lipid panel in January Keep BP measurements at home States white coat syndrome For any new medications prescribed today, patient was educated about indications for the medication, how to take the medication and potential side effects of the medications. I recommended calling the office if there are any new or worsening complaints regarding today's visit. All questions were answered. Patient ca (more content not included)... [facility] Ambulatory 04-16-2024 Hospital Discharge instructions Patient Education 04/16/2024 14:23:43 Benign Prostatic Hyperplasia Benign Prostatic Hyperplasia Benign prostatic hyperplasia (BPH) is an enlarged prostate gland that is caused by the normal aging process. The prostate may get bigger as a man gets older. The condition is not caused by cancer. The prostate is a walnut-sized gland that is involved in the production of semen. It is located in front of the rectum and below the bladder. The bladder stores urine. The urethra carries stored urine out of the body. An enlarged prostate can press on the urethra. This can make it harder to pass urine. The buildup of urine in the bladder can cause infection. Back pressure and infection may progress to bladder damage and kidney (renal) failure. What are the causes? This condition is part of the normal aging process. However, not all men develop problems from this condition. If the prostate enlarges away from the urethra, urine flow will not be blocked. If it enlarges toward the urethra and compresses it, there will be problems passing urine. What increases the risk? This condition is more likely to develop in men older than 50 years. What are the signs or symptoms? Symptoms of this condition include: Getting up often during the night to urinate. Needing to urinate frequently during the day. Difficulty starting urine flow. Decrease in size and strength of your urine stream. Leaking (dribbling) after urinating. Inability to pass urine. This needs immediate treatment. Inability to completely empty your bladder. Pain when you pass urine. This is more common if there is also an infection. Urinary tract infection (UTI). How is this diagnosed? This condition is diagnosed based on your medical history, a physical exam, and your symptoms. Tests will also be done, such as: A post-void bladder scan. This measures any amount of urine that may remain in your bladder after you finish urinating. A digital rectal exam. In a rectal exam, your health care provider checks your prostate by putting a lubricated, gloved finger into your rectum to feel the back of your prostate gland. This exam detects the size of your gland and any abnormal lumps or growths. An exam of your urine (urinalysis). A prostate specific antigen (PSA) screening. This is a blood test used to screen for prostate cancer. An ultrasound. This test uses sound waves to electronically produce a picture of your prostate gland. Your health care provider may refer you to a specialist in kidney and prostate diseases (urologist). How is this treated? Once symptoms begin, your health care provider will monitor your condition (active surveillance or watchful waiting). Treatment for this condition will depend on the severity of your condition. Treatment may include: Observation and yearly exams. This may be the only treatment needed if your condition and symptoms are mild. Medicines to relieve your symptoms, including: ?Medicines to shrink the prostate. ?Medicines to relax the muscle of the prostate. Surgery in severe cases. Surgery may include: ?Prostatectomy. In this procedure, the prostate tissue is removed completely through an open incision or with a laparoscope or robotics. ?Transurethral resection of the prostate (TURP). In this procedure, a tool is inserted through the opening at the tip of the penis (urethra). It is used to cut away tissue of the inner core of the prostate. The pieces are removed through the same opening of the penis. This removes the blockage. ?Transurethral incision (TUIP). In this procedure, small cuts are made in the prostate. This lessens the prostate's pressure on the urethra. ?Transurethral microwave thermotherapy (TUMT). This procedure uses microwaves to create heat. The heat destroys and removes a small amount of prostate tissue. ?Transurethral needle ablation (TUNA). This procedure uses radio frequencies to destroy and remove a small amount of prostate tissue. ?Interstitial laser coagulation (ILC). This procedure uses a laser to destroy and remove a small amount of prostate tissue. ?Transurethral electrovaporization (TUVP). This procedure uses electrodes to destroy and remove a small amount of prostate tissue. ?Prostatic urethral lift. This procedure inserts an implant to push the lobes of the prostate away from the urethra. Follow these instructions at home: Take [id number] and prescription medicines only as told by your health care provider. Monitor your symptoms for any changes. Contact your health care provider with any changes. Avoid drinking large amounts of liquid before going to bed or out in public. Avoid or reduce how much caffeine or alcohol you drink. Give yourself time when you urinate. Keep all follow-up visits. This is important. Contact a health care provider if: You have unexplained back pain. Your symptoms do not get better with treatment. You develop side effects from the medicine you are taking. Your urine becomes very dark or has a bad smell. Your lower abdomen becomes distended and you have trouble passing urine. Get help right away if: You have a fever or chills. You suddenly cannot urinate. You feel light-headed or very dizzy, or you faint. There are large amounts of blood or clots in your urine. Your urinary problems become hard to manage. You develop moderate to severe low back or flank pain. The flank is the side of your body between the ribs and the hip. These symptoms may be an emergency. Get help right away. Call 911. Do not wait to see if the symptoms will go away. Do not drive yourself to the hospital. Summary Benign prostatic hyperplasia (BPH) is an enlarged prostate that is caused by the normal aging process. It is not caused by cancer. An enlarged prostate can press on the urethra. This can make it hard to pass urine. This condition is more likely to develop in men older than 50 years. Get help right away if you suddenly cannot urinate. This information is not intended to replace advice given to you by your health care provider. Make sure you discuss any questions you have with your health care provider. Document Revised: 04/02/2022 Document Reviewed: 04/02/2022 Trusted Opinion Patient Education 2022 [employer]. Follow Up Care 04/07/2024 11:32:22 With:BEATRIS ROMERO, RUBY Smith Address: When: only if needed [facility] [place] 04-16-2024 Note Patient Education Urology Benign Prostatic Hyperplasia Benign prostatic hyperplasia (BPH) is an enlarged prostate gland that is caused by the normal aging process. The prostate may get bigger as a man gets older. The condition is not caused by cancer. The prostate is a walnut-sized gland that is involved in the production of semen. It is located in front of the rectum and below the bladder. The bladder stores urine. The urethra carries stored urine out of the body. An enlarged prostate can press on the urethra. This can make it harder to pass urine. The buildup of urine in the bladder can cause infection. Back pressure and infection may progress to bladder damage and kidney (renal) failure. What are the causes? This condition is part of the normal aging process. However, not all men develop problems from this condition. If the prostate enlarges away from the urethra, urine flow will not be blocked. If it enlarges toward the urethra and compresses it, there will be problems passing urine. What increases the risk? This condition is more likely to develop in men older than 50 years. What are the signs or symptoms? Symptoms of this condition include: ? Getting up often during the night to urinate. ? Needing to urinate frequently during the day. ? Difficulty starting urine flow. ? Decrease in size and strength of your urine stream. ? Leaking (dribbling) after urinating. ? Inability to pass urine. This needs immediate treatment. ? Inability to completely empty your bladder. ? Pain when you pass urine. This is more common if there is also an infection. ? Urinary tract infection (UTI). How is this diagnosed? This condition is diagnosed based on your medical history, a physical exam, and your symptoms. Tests will also be done, such as: ? A post-void bladder scan. This measures any amount of urine that may remain in your bladder after you finish urinating. ? A digital rectal exam. In a rectal exam, your health care provider checks your prostate by putting a lubricated, gloved finger into your rectum to feel the back of your prostate gland. This exam detects the size of your gland and any abnormal lumps or growths. ? An exam of your urine (urinalysis). ? A prostate specific antigen (PSA) screening. This is a blood test used to screen for prostate cancer. ? An ultrasound. This test uses sound waves to electronically produce a picture of your prostate gland. Your health care provider may refer you to a specialist in kidney and prostate diseases (urologist). How is this treated? Once symptoms begin, your health care provider will monitor your condition (active surveillance or watchful waiting). Treatment for this condition will depend on the severity of your condition. Treatment may include: ? Observation and yearly exams. This may be the only treatment needed if your condition and symptoms are mild. ? Medicines to relieve your symptoms, including: ? Medicines to shrink the prostate. ? Medicines to relax the muscle of the prostate. ? Surgery in severe cases. Surgery may include: ? Prostatectomy. In this procedure, the prostate tissue is removed completely through an open incision or with a laparoscope or robotics. ? Transurethral resection of the prostate (TURP). In this procedure, a tool is inserted through the opening at the tip of the penis (urethra). It is used to cut away tissue of the inner core of the prostate. The pieces are removed through the same opening of the penis. This removes the blockage. ? Transurethral incision (TUIP). In this procedure, small cuts are made in the prostate. This lessens the prostate's pressure on the urethra. ? Transurethral microwave thermotherapy (TUMT). This procedure uses microwaves to create heat. The heat destroys and removes a small amount of prostate tissue. ? Transurethral needle ablation (TUNA). This procedure uses radio frequencies to destroy and remove a small amount of prostate tissue. ? Interstitial laser coagulation (ILC). This procedure uses a laser to destroy and remove a small amount of prostate tissue. ? Transurethral electrovaporization (TUVP). This procedure uses electrodes to destroy and remove a small amount of prostate tissue. ? Prostatic urethral lift. This procedure inserts an implant to push the lobes of the prostate away from the urethra. Follow these instructions at home: ? Take qgdr-yzf-zwhouve and prescription medicines only as told by your health care provider. ? Monitor your symptoms for any changes. Contact your health care provider with any changes. ? Avoid drinking large amounts of liquid before going to bed or out in public. ? Avoid or reduce how much caffeine or alcohol you drink. ? Give yourself time when you urinate. ? Keep all follow-up visits. This is important. Contact a health care provider if: ? You have unexplained back pain. ? Your symptoms do not get better with treatment. ? You develop side effec (more content not included)... [facility] 03-01-2024 Note [id number] [facility] 02-05-2024 Hospital Discharge instructions Patient Education 02/05/2024 07:16:15 Atrial Fibrillation Atrial Fibrillation Atrial fibrillation is a type of irregular or rapid heartbeat (arrhythmia). In atrial fibrillation, the top part of the heart (atria) beats in an irregular pattern. This makes the heart unable to pump blood normally and effectively. The goal of treatment is to prevent blood clots from forming, control your heart rate, or restore your heartbeat to a normal rhythm. If this condition is not treated, it can cause serious problems, such as a weakened heart muscle (cardiomyopathy) or a stroke. What are the causes? This condition is often caused by medical conditions that damage the heart's electrical system. These include: High blood pressure (hypertension). This is the most common cause. Certain heart problems or conditions, such as heart failure, coronary artery disease, heart valve problems, or heart surgery. Diabetes. Overactive thyroid (hyperthyroidism). Obesity. Chronic kidney disease. In some cases, the cause of this condition is not known. What increases the risk? This condition is more likely to develop in: Older people. People who smoke. Athletes who do endurance exercise. People who have a family history of atrial fibrillation. Men. People who use drugs. People who drink a lot of alcohol. People who have lung conditions, such as emphysema, pneumonia, or COPD. People who have obstructive sleep apnea. What are the signs or symptoms? Symptoms of this condition include: A feeling that your heart is racing or beating irregularly. Discomfort or pain in your chest. Shortness of breath. Sudden light-headedness or weakness. Tiring easily during exercise or activity. Fatigue. Syncope (fainting). Sweating. In some cases, there are no symptoms. How is this diagnosed? Your health care provider may detect atrial fibrillation when taking your pulse. If detected, this condition may be diagnosed with: An electrocardiogram (ECG) to check electrical signals of the heart. An ambulatory case monitor to record your heart's activity for a few days. A transthoracic echocardiogram (TTE) to create pictures of your heart. A transesophageal echocardiogram (RAPHAEL) to create even closer pictures of your heart. A stress test to check your blood supply while you exercise. Imaging tests, such as a CT scan or chest X-ray. Blood tests. How is this treated? Treatment depends on underlying conditions and how you feel when you experience atrial fibrillation. This condition may be treated with: Medicines to prevent blood clots or to treat heart rate or heart rhythm problems. Electrical cardioversion to reset the heart's rhythm. A pacemaker to correct abnormal heart rhythm. Ablation to remove the heart tissue that sends abnormal signals. Left atrial appendage closure to seal the area where blood clots can form. In some cases, underlying conditions will be treated. Follow these instructions at home: Medicines Take over-the counter and prescription medicines only as told by your health care provider. Do not take any new medicines without talking to your health care provider. If you are taking blood thinners: ? Talk with your health care provider before you take any medicines that contain aspirin or NSAIDs, such as ibuprofen. These medicines increase your risk for dangerous bleeding. ?Take your medicine exactly as told, at the same time every day. ?Avoid activities that could cause injury or bruising, and follow instructions about how to prevent falls. ?Wear a medical alert bracelet or carry a card that lists what medicines you take. Lifestyle Do not use any products that contain nicotine or tobacco, such as cigarettes, e-cigarettes, and chewing tobacco. If you need help quitting, ask your health care provider. Eat heart-healthy foods. Talk with a dietitian to make an eating plan that is right for you. Exercise regularly as told by your health care provider. Do not drink alcohol. Lose weight if you are overweight. Do not use drugs, including cannabis. General instructions If you have obstructive sleep apnea, manage your condition as told by your health care provider. Do not use diet pills unless your health care provider approves. Diet pills can make heart problems worse. Keep all follow-up visits as told by your health care provider. This is important. Contact a health care provider if you: Notice a change in the rate, rhythm, or strength of your heartbeat. Are taking a blood thinner and you notice more bruising. Tire more easily when you exercise or do heavy work. Have a sudden change in weight. Get help right away if you have: Chest pain, abdominal pain, sweating, or weakness. Trouble breathing. Side effects of blood thinners, such as blood in your vomit, stool, or urine, or bleeding that cannot stop. Any symptoms of a stroke. BE FAST is an easy way to remember the main warning signs of a stroke: ?B - Balance. Signs are dizziness, sudden trouble walking, or loss of balance. ?E - Eyes. Signs are trouble seeing or a sudden change in vision. ?F - Face. Signs are sudden weakness or numbness of the face, or the face or eyelid drooping on one side. ?A - Arms. Signs are weakness or numbness in an arm. This happens suddenly and usually on one side of the body. ?S - Speech. Signs are sudden trouble speaking, slurred speech, or trouble understanding what people say. ?T - Time. Time to call emergency services. Write down what time symptoms started. Other signs of a stroke, such as: ?A sudden, severe headache with no known cause. ?Nausea or vomiting. ?Seizure. These symptoms may represent a serious problem that is an emergency. Do not wait to see if the symptoms will go away. Get medical help right away. Call your local emergency services (911 in the [place] Do not drive yourself to the hospital. Summary Atrial fibrillation is a type of irregular or rapid heartbeat (arrhythmia). Symptoms include a feeling that your heart is beating fast or irregularly. You may be given medicines to prevent blood clots or to treat heart rate or heart rhythm problems. Get help right away if you have signs or symptoms of a stroke. Get help right away if you cannot catch your breath or have chest pain or pressure. This information is not intended to replace advice given to you by your health care provider. Make sure you discuss any questions you have with your health care provider. Document Revised: 03/07/2020 Document Reviewed: 03/07/2020 Trusted Opinion Patient Education 2022 [employer]. Follow Up Care 07/13/2023 09:58:30 With:BEATRIS ROMERO, RUBY Smith Address: [address] [place] [address]- When:6 months Comments:try to set up back to back with medicare exam [facility] 02-02-2024 Hospital Discharge instructions Patient Education 02/02/2024 08:20:50 EU - Cystoscopy Discharge Instructions (CUSTOM) Cystoscopy Voiding after the procedure: there may be some pain, burning, urgency, frequency and blood tinged urine following the procedure. These symptoms usually resolve within 2-5 days. Drink the amount of fluid it takes to keep the urine pink to yellow or clear in color. Drinking enough water and fluids will help to ease any discomfort after your procedure. If you are having problems that seem out of the ordinary, please call. If unable to contact your physician and you feel it is an emergency, go to the nearest emergency room or call 911 Diet you may resume your normal diet. Activity you may resume your normal activities Call if you have a fever over 100 degrees. Follow Up Care 01/01/2024 10:28:42 With:[place] CARTAGENA Address: [address] [place], [place] [id number] Business (1) When: Unknown Comments:Office will call to schedule follow up [facility] 02-02-2024 Note [id number] [facility] 02-02-2024 Note Custom Cystoscopy ? Voiding after the procedure: there may be some pain, burning, urgency, frequency and blood tinged urine following the procedure. These symptoms usually resolve within 2-5 days. Drink the amount of fluid it takes to keep the urine pink to yellow or clear in color. Drinking enough water and fluids will help to ease any discomfort after your procedure. ? If you are having problems that seem out of the ordinary, please call. ? If unable to contact your physician and you feel it is an emergency, go to the nearest emergency room or call 911 ? Diet ? you may resume your normal diet. ? Activity ? you may resume your normal activities ? Call if you have a fever over 100 degrees. [facility] 07-22-2023 Hospital Discharge instructions Patient Education 07/22/2023 08:37:38 Suture Removal, Care After Suture Removal, Care After The following information offers guidance on how to care for yourself after your procedure. Your health care provider may also give you more specific instructions. If you have problems or questions, contact your health care provider. What can I expect after the procedure? After your stitches (sutures) are removed, it is common to have: Some discomfort and swelling in the area. Slight redness in the area. Follow these instructions at home: If you have a dressing: Wash your hands with soap and water for at least 20 seconds before and after you change your bandage (dressing). If soap and water are not available, use hand associate store manager. Change your dressing as told by your health care provider. If your dressing becomes wet or dirty, or develops a bad smell, change it as soon as possible. If your dressing sticks to your skin, pour warm, clean water over it until it loosens and can be removed without pulling apart the wound edges. Pat the area dry with a soft, clean towel. Do not rub the wound because that may cause bleeding. Wound care Check your wound every day for signs of infection. Check for: ?More redness, swelling, or pain. ?Fluid or blood. ?New warmth, a rash, or hardness at the wound site. ? Pus or a bad smell. Wash your hands with soap and water for at least 20 seconds before and after touching your wound. If soap and water are not available, use hand associate store manager. Keep the wound area dry and clean. Clean and pat the wound dry as told by your health care provider. Apply cream or ointment only as told by your health care provider. If skin glue or adhesive strips were applied after sutures were removed, leave these closures in place. They may need to stay in place for 2 weeks or longer. If adhesive strip edges start to loosen and curl up, you may trim the loose edges. Do not remove adhesive strips completely unless your health care provider tells you to do that. Continue to protect the wound from injury. Do not pick at your wound. Picking can cause an infection. Bathing Do not take baths, swim, or use a hot tub until your health care provider approves. Ask your health care provider if you may take showers. Follow these steps for showering: ?If you have a dressing, remove it before getting into the shower. ?In the shower, allow soapy water to get on the wound. Avoid scrubbing the wound. ?When you get out of the shower, dry the wound by patting it with a clean towel. ?Reapply a dressing over the wound, if needed. Scar care When your wound has completely healed, help decrease the size of your scar by: Wearing sunscreen over the scar or covering it with clothing when you are outside. New scars get sunburned easily, which can make scarring worse. Gently massaging the scarred area. This can decrease scar thickness. General instructions Take [id number] and prescription medicines only as told by your health care provider. Keep all follow-up visits. This is important. Contact a health care provider if: You have more redness, swelling, or pain around your wound. You have fluid or blood coming from your wound. You have new warmth, a rash, or hardness at the wound site. You have pus or a bad smell coming from your wound. Your wound opens up. Get help right away if: You have a fever or chills. You have red streaks coming from your wound. Summary After your sutures are removed, it is common to have some discomfort and swelling in the area. Wash your hands with soap and water before you change your bandage (dressing). Keep the wound area dry and clean. Do not take baths, swim, or use a hot tub until your health care provider approves. This information is not intended to replace advice given to you by your health care provider. Make sure you discuss any questions you have with your health care provider. Document Revised: 01/07/2022 Document Reviewed: 01/07/2022 Trusted Opinion Patient Education 2022 [employer]. Follow Up Care 07/22/2023 08:29:26 With:Phoebe KENNEDY MD, FAM Address: When: only if needed [facility] [place] 07-12-2023 Instructions Elle Taylor PA-C - 07/12/2023 1:59 PM EDT Leave dressing on x24 hours. Then: Clean laceration 2x daily with plain soap and water You may use antibiotic ointment x3-4 days You may keep bandage over healing laceration for 3-4 days. Then leave open. Maintain gentle range of motion of finger, but avoid strenuous activity Watch for signs of skin infection as discussed. Contact PCP or UC should these occur Return to office in 8-10 days for recheck and probable suture removal Go to the ER for any severe or worsening symptoms The following attachments cannot be sent through Care Everywhere.Lacerations: Stitches (French)documented in this encounter [facility] 07-12-2023 History of Present illness Narrative Associated Order(s): Laceration repair Post-Procedure Diagnose(s): Laceration of right index finger w/o foreign body w/o damage to nail, initial encounter Images from the original note were not included. Patient Name: [facility] Location: [place] [address] [facility] [address] Date Of : Date Of Visit: 1950 07/12/2023 MRN# Provider: [id number] Elle Taylor PA-C Chief Complaint Patient presents with Finger Laceration Cut right index finger on ammonia box tender about 30 min ago. Last tdap 01/2023 Assessment & Plan 1. Laceration of right index finger w/o foreign body w/o damage to nail, initial encounter Laceration repair No follow-ups on file. Medical Decision Making This note was dictated using [employer] voice recognition software which is inherently subject to syntax and sound-alike substitution errors which may escape proofreading. In such instances, original meaning should be extrapolated by contextual derivation. Please excuse any grammatical or spelling errors that may have occurred using the system that may have been missed during proofreading. Differential diagnosis and treatment plan discussed with patient. Physical exam did reveal a flap laceration to the right index finger with moderate active bleeding, likely secondary to Coumadin use. We discussed that suture repair was recommended based on wound characteristics and for hemostasis. Verbal consent was obtained. Procedure was completed with no complications. Hemostasis achieved. Wound was cleansed and dressed in office. Wound care directions for home were provided. Patient's tetanus shot is up-to-date. Patient to return for recheck in 8 to 10 days for probable suture removal. He may also utilize his PCP if he prefers. Patient was directed to monitor for any signs of infection and seek recheck if this occurs. Patient to go to the ER for any severe or worsening symptoms otherwise. Patient verbalized his understanding of and agreement to the treatment plan. Leave dressing on x24 hours. Then: Clean laceration 2x daily with plain soap and water You may use antibiotic ointment x3-4 days You may keep bandage over healing laceration for 3-4 days. Then leave open. Maintain gentle range of motion of finger, but avoid strenuous activity Watch for signs of skin infection as discussed. Contact PCP or UC should these occur Return to office in 8-10 days for recheck and probable suture removal Go to the ER for any severe or worsening symptoms Additional Clinical Comments Discussed over the counter medications for symptomatic management and side effects of medications. Recommended taking all medications with food and to stop medications if they develop any signs of an allergic reaction. Educated patient and/or guardian about signs and symptoms that would warrant further immediate evaluation. Recommended that they should return to urgent care, make an appointment with their family physician, or go to the emergency room if symptoms persist or get acutely worse. Recommended follow up within the next week with their PCP or to get established with a PCP soon in order to follow up appropriately. Subjective 73 y.o. male presents with Finger Laceration (Cut right index finger on ammonia box tender about 30 min ago. Last tdap 01/2023) Patient presents to the office for evaluation of a laceration sustained to the right index finger approximately 30 minutes prior to arrival in office. Patient states he was working on replacing a floor and cut himself on a ammonia box tender. Patient denies numbness and tingling. He denies current pain. Patient states he is in office today because he does take Coumadin and is worried about hemostasis. Patient is left-hand dominant. He otherwise denies contributory past medical history. Laceration The incident occurred less than 1 hour ago. The laceration is located on the Right hand. The laceration is 1 cm in size. The laceration mechanism was a clean knife. The patient is experiencing no pain. He reports no foreign bodies present. His tetanus status is UTD. Review Of Systems Review of Systems Constitutional: Negative for fatigue and fever. Musculoskeletal: Negative for arthralgias. Skin: Positive for wound (laceration- R index finger). Hematological: Bruises/bleeds easily (chronic coumadin use). Medical History History reviewed. No pertinent past medical history. History reviewed. No pertinent surgical history. There is no problem list on file for this patient. Social History Family History History reviewed. No pertinent family history. Objective Physical Exam BP 135/83 Pulse 60 Temp 97.6 F (36.4 C) (Tympanic) Resp 16 SpO2 95% Vision/Hearing Exam:No results found. Physical Exam Vitals and nursing note reviewed. Constitutional: General: He is awake. He is not in acute distress. Appearance: Normal appearance. He is normal weight. He is not ill-appearing, toxic-appearing or diaphoretic. HENT: Head: Normocephalic and atraumatic. Eyes: General: No scleral icterus. Extraocular Movements: Extraocular movements intact. Conjunctiva/sclera: Conjunctivae normal. Pulmonary: Effort: Pulmonary effort is normal. No respiratory distress. Breath sounds: No stridor. Musculoskeletal: Right hand: Laceration (flap laceration to the right index finger. There is active bleeding. Full finger ROM with flexion and extension. Capillary refill <2 seconds.) present. No swelling or deformity. Normal sensation. Normal capillary refill. Normal pulse. Cervical back: Normal range of motion and neck supple. Skin: General: Skin is warm and dry. Capillary Refill: Capillary refill takes less than 2 seconds. Neurological: General: No focal deficit present. Mental Status: He is alert, oriented to person, place, and time and easily aroused. Cranial Nerves: No cranial nerve deficit. Motor: No weakness. Gait: Gait normal. Psychiatric: Mood and Affect: Mood normal. Behavior: Behavior normal. Behavior is cooperative. Thought Content: Thought content normal. Judgment: Judgment normal. Procedure Notes Wound extent: Laceration repair Date/Time: 07/12/2023 2:17 PM Performed by: Elle Taylor PA-C Authorized by: Elle Taylor PA-C Verbal consent: obtained Consent given by: patient Patient identity confirmed: verbally with patient Body area: upper extremity Location details: right index finger Laceration length: 1.5 cm Foreign bodies: no foreign bodies Tendon involvement: none Nerve involvement: none Anesthesia: digital block Anesthesia: Local Anesthetic: lidocaine 1% without epinephrine Anesthetic total: 5 mL Patient sedated: no Repair type: simple Preparation: Patient was prepped and draped in the usual sterile fashion. Irrigation solution: saline Irrigation method: tap Amount of cleaning: standard Hemostasis achieved with: direct pressure no foreign body, no muscle damage and no tendon damage Debridement: none Degree of undermining: none Skin closure: 5-0 ethilon Number of sutures: 6 Technique: simple interrupted Approximation: close Approximation difficulty: simple Dressing: ABX ointment,non-adherent, coban. Patient tolerance: patient tolerated the procedure well with no immediate complications Results No results found for this or any previous visit (from the past 168 hour(s)). No orders to display Orders Placed This Visit Orders Placed This Encounter Procedures Laceration repair Medication List At End Of Visit Current Outpatient Medications Medication Sig Dispense Refill diltiazem (CARDIZEM CD) 180 MG 24 hr capsule omeprazole (PRILOSEC) 40 MG capsule Take 1 (one) capsule (40 mg total) by mouth . pravastatin (PRAVACHOL) 20 MG tablet Take 1 (one) tablet (20 mg total) by mouth . warfarin (COUMADIN) 5 MG tablet Take 1 (one) tablet (5 mg total) by mouth . No current facility-administered medications for this visit. Patient Instructions Leave dressing on x24 hours. Then: Clean laceration 2x daily with plain soap and water You may use antibiotic ointment x3-4 days You may keep bandage over healing laceration for 3-4 days. Then leave open. Maintain gentle range of motion of finger, but avoid strenuous activity Watch for signs of skin infection as discussed. Contact PCP or UC should these occur Return to office in 8-10 days for recheck and probable suture removal Go to the ER for any severe or worsening symptoms documented in this encounter [facility] 07-12-2023 Hospital Discharge instructions Patient Education 07/12/2023 07:16:36 Atrial Fibrillation Atrial Fibrillation Atrial fibrillation is a type of irregular or rapid heartbeat (arrhythmia). In atrial fibrillation, the top part of the heart (atria) beats in an irregular pattern. This makes the heart unable to pump blood normally and effectively. The goal of treatment is to prevent blood clots from forming, control your heart rate, or restore your heartbeat to a normal rhythm. If this condition is not treated, it can cause serious problems, such as a weakened heart muscle (cardiomyopathy) or a stroke. What are the causes? This condition is often caused by medical conditions that damage the heart's electrical system. These include: High blood pressure (hypertension). This is the most common cause. Certain heart problems or conditions, such as heart failure, coronary artery disease, heart valve problems, or heart surgery. Diabetes. Overactive thyroid (hyperthyroidism). Obesity. Chronic kidney disease. In some cases, the cause of this condition is not known. What increases the risk? This condition is more likely to develop in: Older people. People who smoke. Athletes who do endurance exercise. People who have a family history of atrial fibrillation. Men. People who use drugs. People who drink a lot of alcohol. People who have lung conditions, such as emphysema, pneumonia, or COPD. People who have obstructive sleep apnea. What are the signs or symptoms? Symptoms of this condition include: A feeling that your heart is racing or beating irregularly. Discomfort or pain in your chest. Shortness of breath. Sudden light-headedness or weakness. Tiring easily during exercise or activity. Fatigue. Syncope (fainting). Sweating. In some cases, there are no symptoms. How is this diagnosed? Your health care provider may detect atrial fibrillation when taking your pulse. If detected, this condition may be diagnosed with: An electrocardiogram (ECG) to check electrical signals of the heart. An ambulatory case monitor to record your heart's activity for a few days. A transthoracic echocardiogram (TTE) to create pictures of your heart. A transesophageal echocardiogram (RAPHAEL) to create even closer pictures of your heart. A stress test to check your blood supply while you exercise. Imaging tests, such as a CT scan or chest X-ray. Blood tests. How is this treated? Treatment depends on underlying conditions and how you feel when you experience atrial fibrillation. This condition may be treated with: Medicines to prevent blood clots or to treat heart rate or heart rhythm problems. Electrical cardioversion to reset the heart's rhythm. A pacemaker to correct abnormal heart rhythm. Ablation to remove the heart tissue that sends abnormal signals. Left atrial appendage closure to seal the area where blood clots can form. In some cases, underlying conditions will be treated. Follow these instructions at home: Medicines Take over-the counter and prescription medicines only as told by your health care provider. Do not take any new medicines without talking to your health care provider. If you are taking blood thinners: ? Talk with your health care provider before you take any medicines that contain aspirin or NSAIDs, such as ibuprofen. These medicines increase your risk for dangerous bleeding. ?Take your medicine exactly as told, at the same time every day. ?Avoid activities that could cause injury or bruising, and follow instructions about how to prevent falls. ?Wear a medical alert bracelet or carry a card that lists what medicines you take. Lifestyle Do not use any products that contain nicotine or tobacco, such as cigarettes, e-cigarettes, and chewing tobacco. If you need help quitting, ask your health care provider. Eat heart-healthy foods. Talk with a dietitian to make an eating plan that is right for you. Exercise regularly as told by your health care provider. Do not drink alcohol. Lose weight if you are overweight. Do not use drugs, including cannabis. General instructions If you have obstructive sleep apnea, manage your condition as told by your health care provider. Do not use diet pills unless your health care provider approves. Diet pills can make heart problems worse. Keep all follow-up visits as told by your health care provider. This is important. Contact a health care provider if you: Notice a change in the rate, rhythm, or strength of your heartbeat. Are taking a blood thinner and you notice more bruising. Tire more easily when you exercise or do heavy work. Have a sudden change in weight. Get help right away if you have: Chest pain, abdominal pain, sweating, or weakness. Trouble breathing. Side effects of blood thinners, such as blood in your vomit, stool, or urine, or bleeding that cannot stop. Any symptoms of a stroke. BE FAST is an easy way to remember the main warning signs of a stroke: ?B - Balance. Signs are dizziness, sudden trouble walking, or loss of balance. ?E - Eyes. Signs are trouble seeing or a sudden change in vision. ?F - Face. Signs are sudden weakness or numbness of the face, or the face or eyelid drooping on one side. ?A - Arms. Signs are weakness or numbness in an arm. This happens suddenly and usually on one side of the body. ?S - Speech. Signs are sudden trouble speaking, slurred speech, or trouble understanding what people say. ?T - Time. Time to call emergency services. Write down what time symptoms started. Other signs of a stroke, such as: ?A sudden, severe headache with no known cause. ?Nausea or vomiting. ?Seizure. These symptoms may represent a serious problem that is an emergency. Do not wait to see if the symptoms will go away. Get medical help right away. Call your local emergency services (911 in the [place] Do not drive yourself to the hospital. Summary Atrial fibrillation is a type of irregular or rapid heartbeat (arrhythmia). Symptoms include a feeling that your heart is beating fast or irregularly. You may be given medicines to prevent blood clots or to treat heart rate or heart rhythm problems. Get help right away if you have signs or symptoms of a stroke. Get help right away if you cannot catch your breath or have chest pain or pressure. This information is not intended to replace advice given to you by your health care provider. Make sure you discuss any questions you have with your health care provider. Document Revised: 03/07/2020 Document Reviewed: 03/07/2020 Trusted Opinion Patient Education 2022 [employer]. Follow Up Care 01/30/2023 10:35:30 With:Phoebe KENNEDY MD, FAM Address: [address] [place], [place] [address] [address] When:6 months Comments:but see EF or TB ~ for suture removal FINGER LACERATION [facility] 07-15-2022 Hospital Discharge instructions Patient Education 07/15/2022 09:09:51 Benign Prostatic Hyperplasia Benign Prostatic Hyperplasia Benign prostatic hyperplasia (BPH) is an enlarged prostate gland that is caused by the normal aging process and not by cancer. The prostate is a walnut-sized gland that is involved in the production of semen. It is located in front of the rectum and below the bladder. The bladder stores urine and the urethra is the tube that carries the urine out of the body. The prostate may get bigger as a man gets older. An enlarged prostate can press on the urethra. This can make it harder to pass urine. The build-up of urine in the bladder can cause infection. Back pressure and infection may progress to bladder damage and kidney (renal) failure. What are the causes? This condition is part of a normal aging process. However, not all men develop problems from this condition. If the prostate enlarges away from the urethra, urine flow will not be blocked. If it enlarges toward the urethra and compresses it, there will be problems passing urine. What increases the risk? This condition is more likely to develop in men over the age of 50 years. What are the signs or symptoms? Symptoms of this condition include: Getting up often during the night to urinate. Needing to urinate frequently during the day. Difficulty starting urine flow. Decrease in size and strength of your urine stream. Leaking (dribbling) after urinating. Inability to pass urine. This needs immediate treatment. Inability to completely empty your bladder. Pain when you pass urine. This is more common if there is also an infection. Urinary tract infection (UTI). How is this diagnosed? This condition is diagnosed based on your medical history, a physical exam, and your symptoms. Tests will also be done, such as: A post-void bladder scan. This measures any amount of urine that may remain in your bladder after you finish urinating. A digital rectal exam. In a rectal exam, your health care provider checks your prostate by putting a lubricated, gloved finger into your rectum to feel the back of your prostate gland. This exam detects the size of your gland and any abnormal lumps or growths. An exam of your urine (urinalysis). A prostate specific antigen (PSA) screening. This is a blood test used to screen for prostate cancer. An ultrasound. This test uses sound waves to electronically produce a picture of your prostate gland. Your health care provider may refer you to a specialist in kidney and prostate diseases (urologist). How is this treated? Once symptoms begin, your health care provider will monitor your condition (active surveillance or watchful waiting). Treatment for this condition will depend on the severity of your condition. Treatment may include: Observation and yearly exams. This may be the only treatment needed if your condition and symptoms are mild. Medicines to relieve your symptoms, including: ?Medicines to shrink the prostate. ?Medicines to relax the muscle of the prostate. Surgery in severe cases. Surgery may include: ?Prostatectomy. In this procedure, the prostate tissue is removed completely through an open incision or with a laparoscope or robotics. ?Transurethral resection of the prostate (TURP). In this procedure, a tool is inserted through the opening at the tip of the penis (urethra). It is used to cut away tissue of the inner core of the prostate. The pieces are removed through the same opening of the penis. This removes the blockage. ?Transurethral incision (TUIP). In this procedure, small cuts are made in the prostate. This lessens the prostate's pressure on the urethra. ?Transurethral microwave thermotherapy (TUMT). This procedure uses microwaves to create heat. The heat destroys and removes a small amount of prostate tissue. ?Transurethral needle ablation (TUNA). This procedure uses radio frequencies to destroy and remove a small amount of prostate tissue. ?Interstitial laser coagulation (ILC). This procedure uses a laser to destroy and remove a small amount of prostate tissue. ?Transurethral electrovaporization (TUVP). This procedure uses electrodes to destroy and remove a small amount of prostate tissue. ?Prostatic urethral lift. This procedure inserts an implant to push the lobes of the prostate away from the urethra. Follow these instructions at home: Take dfdq-sub-miwckcq and prescription medicines only as told by your health care provider. Monitor your symptoms for any changes. Contact your health care provider with any changes. Avoid drinking large amounts of liquid before going to bed or out in public. Avoid or reduce how much caffeine or alcohol you drink. Give yourself time when you urinate. Keep all follow-up visits as told by your health care provider. This is important. Contact a health care provider if: You have unexplained back pain. Your symptoms do not get better with treatment. You develop side effects from the medicine you are taking. Your urine becomes very dark or has a bad smell. Your lower abdomen becomes distended and you have trouble passing your urine. Get help right away if: You have a fever or chills. You suddenly cannot urinate. You feel lightheaded, or very dizzy, or you faint. There are large amounts of blood or clots in the urine. Your urinary problems become hard to manage. You develop moderate to severe low back or flank pain. The flank is the side of your body between the ribs and the hip. These symptoms may represent a serious problem that is an emergency. Do not wait to see if the symptoms will go away. Get medical help right away. Call your local emergency services (911 in the [place] Do not drive yourself to the hospital. Summary Benign prostatic hyperplasia (BPH) is an enlarged prostate that is caused by the normal aging process and not by cancer. An enlarged prostate can press on the urethra. This can make it hard to pass urine. This condition is part of a normal aging process and is more likely to develop in men over the age of 50 years. Get help right away if you suddenly cannot urinate. This information is not intended to replace advice given to you by your health care provider. Make sure you discuss any questions you have with your health care provider. Document Released: 09/14/2006 Document Revised: 08/09/2019 Document Reviewed: 10/19/2017 Trusted Opinion Patient Education 2020 [employer]. Follow Up Care 07/02/2021 08:49:11 With:ENID ROMERO, Eric Anderson, URL Address: [address] [place] [id number]- When: Unknown [facility] 07-05-2022 Hospital Discharge instructions Patient Education 07/05/2022 20:25:25 Atrial Fibrillation, Iqya-vw-Kdny Atrial Fibrillation Atrial fibrillation is a type of heartbeat that is irregular or fast (rapid). If you have this condition, your heart beats without any order. This makes it hard for your heart to pump blood in a normal way. Having this condition gives you more risk for stroke, heart failure, and other heart problems. Atrial fibrillation may start all of a sudden and then stop on its own, or it may become a long-lasting problem. What are the causes? This condition may be caused by heart conditions, such as: High blood pressure. Heart failure. Heart valve disease. Heart surgery. Other causes include: Pneumonia. Obstructive sleep apnea. Lung cancer. Thyroid disease. Drinking too much alcohol. Sometimes the cause is not known. What increases the risk? You are more likely to develop this condition if: You smoke. You are older. You have diabetes. You are overweight. You have a family history of this condition. You exercise often and hard. What are the signs or symptoms? Common symptoms of this condition include: A feeling like your heart is beating very fast. Chest pain. Feeling short of breath. Feeling light-headed or weak. Getting tired easily. Follow these instructions at home: Medicines Take xqut-vcv-erihqek and prescription medicines only as told by your doctor. If your doctor gives you a blood-thinning medicine, take it exactly as told. Taking too much of it can cause bleeding. Taking too little of it does not protect you against clots. Clots can cause a stroke. Lifestyle Do not use any tobacco products. These include cigarettes, chewing tobacco, and e-cigarettes. If you need help quitting, ask your doctor. Do not drink alcohol. Do not drink beverages that have caffeine. These include coffee, soda, and tea. Follow diet instructions as told by your doctor. Exercise regularly as told by your doctor. General instructions If you have a condition that causes breathing to stop for a short period of time (apnea), treat it as told by your doctor. Keep a healthy weight. Do not use diet pills unless your doctor says they are safe for you. Diet pills may make heart problems worse. Keep all follow-up visits as told by your doctor. This is important. Contact a doctor if: You notice a change in the speed, rhythm, or strength of your heartbeat. You are taking a blood-thinning medicine and you see more bruising. You get tired more easily when you move or exercise. You have a sudden change in weight. Get help right away if: You have pain in your chest or your belly (abdomen). You have trouble breathing. You have blood in your vomit, poop, or pee (urine). You have any signs of a stroke. BE FAST is an easy way to remember the main warning signs: ?B - Balance. Signs are dizziness, sudden trouble walking, or loss of balance. ?E - Eyes. Signs are trouble seeing or a change in how you see. ?F - Face. Signs are sudden weakness or loss of feeling in the face, or the face or eyelid drooping on one side. ?A - Arms. Signs are weakness or loss of feeling in an arm. This happens suddenly and usually on one side of the body. ?S - Speech. Signs are sudden trouble speaking, slurred speech, or trouble understanding what people say. ?T - Time. Time to call emergency services. Write down what time symptoms started. You have other signs of a stroke, such as: ?A sudden, very bad headache with no known cause. ?Feeling sick to your stomach (nausea). ?Throwing up (vomiting). ?Jerky movements you cannot control (seizure). These symptoms may be an emergency. Do not wait to see if the symptoms will go away. Get medical help right away. Call your local emergency services (911 in the [place] Do not drive yourself to the hospital. Summary Atrial fibrillation is a type of heartbeat that is irregular or fast (rapid). You are at higher risk of this condition if you smoke, are older, have diabetes, or are overweight. Follow your doctor's instructions about medicines, diet, exercise, and follow-up visits. Get help right away if you think that you have signs of a stroke. This information is not intended to replace advice given to you by your health care provider. Make sure you discuss any questions you have with your health care provider. Document Released: 06/23/2009 Document Revised: 11/18/2018 Document Reviewed: 11/05/2018 [employer] Patient Education 2019 [employer]. [facility] [place] 07-04-2022 Hospital Discharge instructions Patient Education 07/04/2022 11:55:16 Calcium Content in Foods Calcium Content in Foods Calcium is the most abundant mineral in your body. Most of your body's calcium supply is stored in your bones and teeth. Calcium helps many parts of the body function normally, including: Blood and blood vessels. Nerves. Hormones. Muscles. Bones and teeth. When your calcium stores are low, you may be at risk for low bone mass, bone loss, and broken bones (fractures). When you get enough calcium, it helps to support strong bones and teeth throughout your life. Calcium is especially important for: Children during growth spurts. Girls during adolescence. Women who are or . Women after their menstrual cycle stops (postmenopause). Women whose menstrual cycle has stopped due to anorexia nervosa or regular intense exercise. People who cannot eat or digest dairy products. Vegans. What are tips for getting more calcium? General information Try to get most of your calcium from food. Eat foods that are high in calcium. Some people may benefit from taking calcium supplements. Check with your health care provider or diet and nutrition helper (dietitian) before starting any calcium supplements. Calcium supplements may interact with certain medicines. Too much calcium may cause other health problems, like constipation and kidney stones. For the body to absorb calcium, it needs vitamin D. Sources of vitamin D include: ?Skin exposure to direct sunlight. ?Foods, such as egg yolks, liver, saltwater fish, and fortified milk. ?Vitamin D supplements. Check with your health care provider or dietitian before starting any vitamin D supplements. What foods are high in calcium? High-calcium foods are those that contain more than 100 milligrams (mg) of calcium per serving. Fruits Fortified orange or other fruit juice, 300 mg per 8 oz serving. Vegetables Pillo greens, 360 mg per 8 oz serving. Kale, 180 mg per 8 oz serving. Bok warren, 160 mg per 8 oz serving. Grains Fortified xanff-rw-nde cereals, 100 1,000 mg per 8 oz serving. Fortified frozen waffles, 200 mg in two waffles. Meats and other proteins Sardines, canned with bones, 325 mg per 3 oz serving. [place], canned with bones, 180 mg per 3 oz serving. Canned shrimp, 125 mg per 3 oz serving. Baked beans, 160 mg per 4 oz serving. Dairy Yogurt, plain, low-fat, 310 mg per 6 oz serving. Milk, 300 mg per 8 oz serving. [place] cheese, 195 mg per 1 oz serving. Cheddar cheese, 205 mg per 1 oz serving. Cottage cheese 2%, 105 mg per 4 oz serving. Fortified soy, rice, or almond milk, 300 mg per 8 oz serving. The items listed above may not be a complete list of foods high in calcium. Actual amounts of calcium may be different depending on processing. Contact a dietitian for more information. What foods are lower in calcium? Foods lower in calcium are those that contain 50 mg of calcium or less per serving. Fruits Apple, about 6 mg in one apple. Banana, about 12 mg in one banana. Vegetables Lettuce, 19 mg per 2 oz serving. Tomato, about 11 mg in one tomato. Grains Rice, 4 mg per 6 oz serving. Boiled potatoes, 14 mg per 8 oz serving. White bread, 6 mg in one slice. Meats and other proteins Egg, 27 mg per 2 oz serving. Red meat, 7 mg per 4 oz serving. Chicken, 17 mg per 4 oz serving. Fish, cod or trout, 20 mg per 4 oz serving. The items listed above may not be a complete list of foods lower in calcium. Actual amounts of calcium may be different depending on processing. Contact a dietitian for more information. Summary Calcium is an important mineral in the body because it affects many functions. Getting enough calcium helps support strong bones and teeth throughout your life. Try to get most of your calcium from food. Calcium supplements may interact with certain medicines. Check with your health care provider before starting any calcium supplements. This information is not intended to replace advice given to you by your health care provider. Make sure you discuss any questions you have with your health care provider. Document Released: 04/28/2005 Document Revised: 09/07/2018 Document Reviewed: 09/07/2018 Trusted Opinion Patient Education 2020 [employer]Up. 07/04/2022 11:55:14 Basics of Medicine Management Basics of Medicine Management Taking your medicines correctly is an important part of managing or preventing medical problems. Make sure you know what disease or condition your medicine is treating, and how and when to take it. If you do not take your medicine correctly, it may not work well and may cause unpleasant side effects, including serious health problems. What should I do when I am taking medicines? Read all the labels and inserts that come with your medicines. Review the information often. Talk with your pharmacist if you get a refill and notice a change in the size, color, or shape of your medicines. Know the potential side effects for each medicine that you take. Try to get all your medicines from the same pharmacy. The pharmacist will have all your information and will understand how your medicines will affect each other (interact). Tell your health care provider about all your medicines, including pglh-qkg-yxprcnu medicines, vitamins, and herbal or dietary supplements. He or she will make sure that nothing will interact with any of your prescribed medicines. How can I take my medicines safely? Take medicines only as told by your health care provider. ?Do not take more of your medicine than instructed. ?Do not take anyone else's medicines. ?Do not share your medicines with others. ?Do not stop taking your medicines unless your health care provider tells you to do so. ?You may need to avoid alcohol or certain foods or liquids when taking certain medicines. Follow your health care provider's instructions. Do not split, mash, or chew your medicines unless your health care provider tells you to do so. Tell your health care provider if you have trouble swallowing your medicines. For liquid medicine, use the dosing container that was provided. How should I organize my medicines? Know your medicines Know what each of your medicines looks like. This includes size, color, and shape. Tell your health care provider if you are having trouble recognizing all the medicines that you are taking. If you cannot tell your medicines apart because they look similar, keep them in original bottles. If you cannot read the labels on the bottles, tell your pharmacist to put your medicines in containers with large print. Review your medicines and your schedule with family members, a friend, or a caregiver. Use a pill organizer Use a tool to organize your medicine schedule. Tools include a weekly pillbox, a written chart, a notebook, or a calendar. Your tool should help you remember the following things about each medicine: ?The name of the medicine. ?The amount (dose) to take. ?The schedule. This is the day and time the medicine should be taken. ?The appearance. This includes color, shape, size, and stamp. ?How to take your medicines. This includes instructions to take them with food, without food, with fluids, or with other medicines. Create reminders for taking your medicines. Use sticky notes, or alarms on your watch, mobile device, or phone calendar. You may choose to use a more advanced management system. These systems have storage, alarms, and visual and audio prompts. Some medicines can be taken on an as-needed basis. These include medicines for nausea or pain. If you take an as-needed medicine, write down the name and dose, as well as the date and time that you took it. How should I plan for travel? Take your pillbox, medicines, and organization system with you when traveling. Have your medicines refilled before you travel. This will ensure that you do not run out of your medicines while you are away from home. Always carry an updated list of your medicines with you. If there is an emergency, a risk management professional can quickly see what medicines you are taking. Do not pack your medicines in checked luggage in case your luggage is lost or delayed. If any of your medicines is considered a controlled substance, make sure you bring a letter from your health care provider with you. How should I store and discard my medicines? For safe storage: Store medicines in a cool, dry area away from light, or as directed by your health care provider. Do not store medicines in the bathroom. Heat and humidity will affect them. Do not store your medicines with other chemicals, or with medicines for pets or other household members. Keep medicines away from children and pets. Do not leave them on counters or bedside tables. Store them in high cabinets or on high shelves. For safe disposal: Check expiration dates regularly. Do not take medicines. Discard medicines that are older than the expiration date. Learn a safe way to dispose of your medicines. You may: ?Use a local government, hospital, or pharmacy hlzxccnr-ytwd-pder program. ?Mix the medicines with inedible substances, put them in a sealed bag or empty container, and throw them in the trash. What should I remember? Tell your health care provider if you: ?Experience side effects. ?Have new symptoms. ?Have other concerns about taking your medicines. Review your medicines regularly with your health care provider. Other medicines, diet, medical conditions, weight changes, and daily habits can all affect how medicines work. Ask if you need to continue taking each medicine, and discuss how well each one is working. Refill your medicines early to avoid running out of them. In case of an accidental overdose, call your local Poison Control Center at or visit your local emergency department immediately. This is important. Summary Taking your medicines correctly is an important part of managing or preventing medical problems. You need to make sure that you understand what you are taking a medicine for, as well as how and when you need to take it. Know your medicines and use a pill organizer to help you take your medicines correctly. In case of an accidental overdose, call your local Poison Control Center at or visit your local emergency department immediately. This is important. This information is not intended to replace advice given to you by your health care provider. Make sure you discuss any questions you have with your health care provider. Document Released: 12/30/2011 Document Revised: 09/09/2018 Document Reviewed: 09/09/2018 Trusted Opinion Patient Education 2019 LoungeUp. [facility] [place] 02-06-2022 Hospital Discharge instructions Patient Education 02/06/2022 07:52:49 Preventing High Cholesterol Preventing High Cholesterol Cholesterol is a white, waxy substance similar to fat that the human body needs to help build cells. The liver makes all the cholesterol that a person's body needs. Having high cholesterol (hypercholesterolemia) increases a person's risk for heart disease and stroke. Extra (excess) cholesterol comes from the food the person eats. High cholesterol can often be prevented with diet and lifestyle changes. If you already have high cholesterol, you can control it with diet and lifestyle changes and with medicine. How can high cholesterol affect me? If you have high cholesterol, deposits (plaques) may build up on the torres of your arteries. The arteries are the blood vessels that carry blood away from your heart. Plaques make the arteries narrower and stiffer. This can limit or block blood flow and cause blood clots to form. Blood clots: Are tiny balls of cells that form in your blood. Can move to the heart or brain, causing a heart attack or stroke. Plaques in arteries greatly increase your risk for heart attack and stroke.Making diet and lifestyle changes can reduce your risk for these conditions that may threaten your life. What can increase my risk? This condition is more likely to develop in people who: Eat foods that are high in saturated fat or cholesterol. Saturated fat is mostly found in: ?Foods that contain animal fat, such as red meat and some dairy products. ?Certain fatty foods made from plants, such as tropical oils. Are overweight. Are not getting enough exercise. Have a family history of high cholesterol. What actions can I take to prevent this? Nutrition Eat less saturated fat. Avoid trans fats (partially hydrogenated oils). These are often found in margarine and in some baked goods, fried foods, and snacks bought in packages. Avoid precooked or cured meat, such as sausages or meat loaves. Avoid foods and drinks that have added sugars. Eat more fruits, vegetables, and whole grains. Choose healthy sources of protein, such as fish, poultry, lean cuts of red meat, beans, peas, lentils, and nuts. Choose healthy sources of fat, such as: ?Nuts. ?Vegetable oils, especially olive oil. ?Fish that have healthy fats (omega-3 fatty acids), such as mackerel or salmon. The items listed above may not be a complete list of recommended foods and beverages. Contact a dietitian for more information. Lifestyle Lose weight if you are overweight. Losing 5 10 lb (2.3 4.5 kg) can help prevent or control high cholesterol. It can also lower your risk for diabetes and high blood pressure. Ask your health care provider to help you with a diet and exercise plan to lose weight safely. Do not use any products that contain nicotine or tobacco, such as cigarettes, e-cigarettes, and chewing tobacco. If you need help quitting, ask your health care provider. Limit your alcohol intake. ?Do not drink alcohol if: ?Your health care provider tells you not to drink. ?You are , may be , or are planning to become . ?If you drink alcohol: ?Limit how much you use to: 0 1 drink a day for women. 0 2 drinks a day for men. ?Be aware of how much alcohol is in your drink. In the [place] one drink equals one 12 oz bottle of beer (355 mL), one 5 oz glass of wine (148 mL), or one 1 oz glass of hard liquor (44 mL). Activity Get enough exercise. Each week, do at least 150 minutes of exercise that takes a medium level of effort (moderate-intensity exercise). ?This is exercise that: ?Makes your heart beat faster and makes you breathe harder than usual. ?Allows you to still be able to talk. ?You could exercise in short sessions several times a day or longer sessions a few times a week. For example, on 5 days each week, you could walk fast or ride your bike 3 times a day for 10 minutes each time. Do exercises as told by your health care provider. Medicines In addition to diet and lifestyle changes, your health care provider may recommend medicines to help lower cholesterol. This may be a medicine to lower the amount of cholesterol your liver makes. You may need medicine if: ?Diet and lifestyle changes do not lower your cholesterol enough. ?You have high cholesterol and other risk factors for heart disease or stroke. Take grxp-drm-oamtebi and prescription medicines only as told by your health care provider. General information Manage your risk factors for high cholesterol. Talk with your health care provider about all your risk factors and how to lower your risk. Manage other conditions that you have, such as diabetes or high blood pressure (hypertension). Have blood tests to check your cholesterol levels at regular points in time as told by your health care provider. Keep all follow-up visits as told by your health care provider. This is important. Where to find more information [place] [employer]: www.heart.org National Heart, Lung, and Blood [place]: www.nhlbi.nih.gov Summary High cholesterol increases your risk for heart disease and stroke. By keeping your cholesterol level low, you can reduce your risk for these conditions. High cholesterol can often be prevented with diet and lifestyle changes. Work with your health care provider to manage your risk factors, and have your blood tested regularly. This information is not intended to replace advice given to you by your health care provider. Make sure you discuss any questions you have with your health care provider. Document Released: 09/28/2016 Document Revised: 01/06/2020 Document Reviewed: 05/23/2017 [employer]itwhiz Patient Education 2020 [employer]. Follow Up Care 07/22/2021 09:57:27 With:Phoebe KENNEDY MD, FAM Address: [address] [place], [place] [id number]- When: Unknown Comments:see in early 06/2022, plan labs 1 week prior with nurse [facility] [place] Evaluation + Plan note Future Appointments Appointment Date:02/07/2022 11:40:00 AM Scheduled Provider:Phoebe KENNEDY MD Location:[facility] [place] Appointment Type:FM Open Appointment Date:07/04/2022 01:00:00 PM Scheduled Provider: [facility]: Medicare Wellness Subsequent Appointment Date:07/15/2022 08:30:00 AM Scheduled Provider:[facility] Type:[facility]O Office Visit Future Scheduled TestsPSA Total 07/02/22 [facility] Evaluation + Plan note Future Appointments Appointment Date:06/27/2022 08:20:00 AM Scheduled Provider: Location:[facility] [place] Appointment Type:FM Nurse Visit Appointment Date:07/04/2022 01:00:00 PM Scheduled Provider: Location:[facility] [place] Appointment Type: Medicare Wellness Subsequent Appointment Date:07/07/2022 11:40:00 AM Scheduled Provider:Phoebe KENNEDY MD Location:[facility] [place] Appointment Type:FM Open Appointment Date:07/15/2022 08:30:00 AM Scheduled Provider:Eric CASTANEDA MD Location:[facility] Appointment Type:URO Office Visit Future Scheduled TestsPSA Screen, Total 02/07/22PSA Total 07/02/22CBC w/ Auto Diff 02/07/22Comprehensive Metabolic Panel 02/07/22Lipid Panel 02/07/22 [facility] [place] Evaluation + Plan note Future Appointments Appointment Date:06/27/2022 08:20:00 AM Scheduled Provider: Location:[facility] [place] Appointment Type:FM Nurse Visit Appointment Date:07/04/2022 01:00:00 PM Scheduled Provider: Location:[facility] [place] Appointment Type:FM Medicare Wellness Subsequent Appointment Date:07/07/2022 11:40:00 AM Scheduled Provider:Phoebe [facility]ED[facility]: Open Appointment Date:07/15/2022 08:30:00 AM Scheduled Provider:Eric CASTANEDA MD Location:[facility] Appointment Type:URO Office Visit Future Scheduled TestsPSA Total 07/02/PT //PT //PT 07/10/PT //PT //PT //PT //PT 3//PT 4//PT 5//PT 6/ [facility] [place] Evaluation + Plan note Future Appointments Appointment Date:06/27/2022 08:20:00 AM Scheduled Provider: [facility] Type: Nurse Visit Appointment Date:07/04/2022 01:00:00 PM Scheduled Provider: [facility] Type: Medicare Wellness Subsequent Appointment Date:07/07/2022 11:40:00 AM Scheduled Provider:Phoebe KENNEDY MD [facility] Type: Open Appointment Date:07/15/2022 08:30:00 AM Scheduled Provider:Eric CASTANEDA MD Location:[facility] Appointment Type:URO Office Visit Diagnostic Tests PendingCBC w/ Auto Diff 05/09/22Comprehensive Metabolic Panel 05/09/22Lipid Panel 05/09/22PSA Screen, Total 05/09/22 Future Scheduled TestsPSA Total 07/02/PT //PT //PT 07/10/PT //PT //22PT 10/10/PT 2//PT 3//PT //PT //PT / [facility] Evaluation + Plan note Future Appointments Appointment Date:06/27/2022 08:20:00 AM Scheduled Provider: [facility] Type: Nurse Visit Appointment Date:07/04/2022 01:00:00 PM Scheduled Provider: [facility] Type: Medicare Wellness Subsequent Appointment Date:07/07/2022 11:40:00 AM Scheduled Provider:Phoebe KENNEDY MD Location:[facility] [place] Appointment Type: Open Appointment Date:07/15/2022 08:30:00 AM Scheduled Provider:Eric CASTANEDA MD Location:[facility] Appointment Type:URO Office Visit Diagnostic Tests PendingCBC w/ Auto Diff 05/21/22Comprehensive Metabolic Panel 05/21/22Lipid Panel 05/21/22PSA Screen, Total 05/21/22 Future Scheduled TestsPSA Total 07/02/PT 7//PT 07/10/22PT //PT //PT 1//PT 2//PT 3//PT 4//PT 5//PT 6/ [facility] Evaluation + Plan note Future Appointments Appointment Date:07/04/2022 01:00:00 PM Scheduled Provider: Location:[facility] [place] Appointment Type: Medicare Wellness Subsequent Appointment Date:07/07/2022 11:40:00 AM Scheduled Provider:Phoebe KENNEDY MD Location:[facility] [place] Appointment Type: Open Appointment Date:07/15/2022 08:30:00 AM Scheduled Provider:Eric CASTANEDA MD Location:[facility] Appointment Type:URO Office Visit Future Scheduled TestsPSA Total 07/02/PT 7//PT //PT 12//PT 1//PT 2//PT 3//PT 4//PT 5//PT 6/ [facility] [place] Evaluation + Plan note Future Appointments Appointment Date:07/07/2022 11:40:00 AM Scheduled Provider:Phoebe KENNEDY MD Location:[facility] [place] Appointment Type: Open Appointment Date:07/15/2022 08:30:00 AM Scheduled Provider:Eric [facility]STANEDA MD [facility] Type:URO Office Visit Appointment Date:07/03/2023 02:30:00 PM Scheduled Provider: Location:[facility] [place] Appointment Type:FM Medicare Wellness Subsequent Future Scheduled TestsPSA Total //22PT 7//22PT //22PT //22PT 1/13/23PT 2/13/23PT 3/13/23PT 4/13/23PT 5/13/23PT 6//23 [facility] [place] Evaluation + Plan note Future Appointments Appointment Date:07/15/2022 08:30:00 AM Scheduled Provider:Eric CASTANEDA MD Location[facility] [place] Appointment Type:URO Office Visit Appointment Date:01/26/2023 08:20:00 AM Scheduled Provider: Location:[facility] [place] Appointment Type:FM Nurse Visit Appointment Date:01/30/2023 09:40:00 AM Scheduled Provider:Phoebe KENNEDY MD Location:[facility] [place] Appointment Type:FM Open Appointment Date:07/03/2023 02:30:00 PM Scheduled Provider: Location:[facility] [place] Appointment Type:FM Medicare Wellness Subsequent Diagnostic Tests PendingPT 07/07/22 Future Scheduled TestsPSA Total 07/02/PT 7/13/22PT 11//22PT 12//22PT 1//23PT 2/13/23PT 3/13/23PT 4//23PT 5/13/23PT 6// [facility] [place] Evaluation + Plan note Future Appointments Appointment Date:07/16/2022 10:20:00 AM Scheduled Provider: Location:[facility] [place] Appointment Type:FM COVID Booster - Moderna Appointment Date:01/26/2023 08:20:00 AM Scheduled Provider: Location:[facility] [place] Appointment Type:FM Nurse Visit Appointment Date:01/30/2023 09:40:00 AM Scheduled Provider:Phoebe KENNEDY MD Location:[facility] [place] Appointment Type:FM Open Appointment Date:07/03/2023 02:30:00 PM Scheduled Provider: Location:[facility] [place] Appointment Type:FM Medicare Wellness Subsequent Appointment Date:07/14/2023 08:15:00 AM Scheduled Provider:Eric CASTANEDA MD Location:[facility] Appointment Type:URO Office Visit Future Scheduled TestsPSA Total 01/26/23PSA Total 07/02/PT //PT //PT //PT //PT //PT //PT 4//PT 5//23PT 6/ [facility] Evaluation + Plan note Future Appointments Appointment Date:01/26/2023 08:20:00 AM Scheduled Provider: Location:[facility] [place] Appointment Type:FM Nurse Visit Appointment Date:01/30/2023 09:40:00 AM Scheduled Provider:Phoebe KENNEDY MD Location:[facility] [place] Appointment Type:FM Open Appointment Date:07/03/2023 02:30:00 PM Scheduled Provider: Location:[facility] [place] Appointment Type: Medicare Wellness Subsequent Appointment Date:07/14/2023 08:15:00 AM Scheduled Provider:Eric CASTANEDA MD Location:[facility] Appointment Type:URO Office Visit Future Scheduled TestsPSA Total 01/26/23PSA Total 07/02/PT //PT //PT //PT 10/10/PT //PT //PT 4//PT 5//PT 6// [facility] [place] Evaluation + Plan note Future Appointments Appointment Date:01/30/2023 09:40:00 AM Scheduled Provider:Phoebe KENNEDY MD Location:[facility] [place] Appointment Type:FM Open Appointment Date:07/03/2023 02:30:00 PM Scheduled Provider: Location:[facility] [place] Appointment Type:FM Medicare Wellness Subsequent Appointment Date:07/14/2023 08:15:00 AM Scheduled Provider:[facility]ST[facility]EDA [facility] Type:URO Office Visit Future Scheduled TestsPSA Total 01/26/PT 7//PT 11//PT 12//22PT //23PT 2/13/23PT 3/13/23PT /PT 6/ [facility] [place] Evaluation + Plan note Future Appointments Appointment Date:07/03/2023 02:00:00 PM Scheduled Provider: Location:[facility] [place] Appointment Type:FM Medicare Wellness Subsequent Appointment Date:07/10/2023 08:20:00 AM Scheduled Provider: Location:[facility] [place] Appointment Type:FM Nurse Visit Appointment Date:07/13/2023 09:20:00 AM Scheduled Provider:Phoebe KENNEDY MD Location:[facility] [place] Appointment Type:FM Open Appointment Date:07/14/2023 08:15:00 AM Scheduled Provider:Eric CASTANEDA MD Location:[facility] [place] Appointment Type:URO Office Visit Future Scheduled TestsPSA Total 01/26/23PT //PT 08/10/PT //PT 10/10/22PT 11/10/22PT //PT 01/08/23 [facility] [place] Evaluation + Plan note Future Appointments Appointment Date:07/13/2023 09:20:00 AM Scheduled Provider:Phoebe KENNEDY MD Location:[facility] [place] Appointment Type:FM Open Appointment Date:07/24/2023 08:45:00 AM Scheduled Provider:[place] CARTAGENA MD Location:[facility] [place] Appointment Type:URO Office Visit Appointment Date:07/05/2024 01:00:00 PM Scheduled Provider: Location:[facility] [place] Appointment Type:FM Medicare Wellness Subsequent [facility] [place] Evaluation + Plan note Future Appointments Appointment Date:07/22/2023 08:40:00 AM Scheduled Provider: Location:[facility] [place] Appointment Type:FM Nurse Visit Appointment Date:07/24/2023 08:45:00 AM Scheduled Provider:[place] CARTAGENA MD Location:[facility] [place] Appointment Type:URO Office Visit Appointment Date:01/15/2024 08:20:00 AM Scheduled Provider: Location:[facility] [place] Appointment Type:FM Nurse Visit Appointment Date:01/18/2024 08:20:00 AM Scheduled Provider:Phoebe KENNEDY MD [facility] Type:FM Open Appointment Date:07/05/2024 01:00:00 PM Scheduled Provider: [facility] App[facility] Type:FM Medicare Wellness Subsequent Diagnostic Tests PendingPT 07/13/23 Future Scheduled TestsCBC w/ Auto Diff 07/12/23Comprehensive Metabolic Panel 07/12/23Lipid Panel 07/12/23 [facility] Evaluation + Plan note Future Appointments Appointment Date:07/24/2023 08:45:00 AM Scheduled Provider:[place] CARTAGENA MD Location:[facility] [place] Appointment Type:URO Office Visit Appointment Date:02/05/2024 08:20:00 AM Scheduled Provider: [facility] App[facility] Type:FM Nurse Visit Appointment Date:02/08/2024 08:00:00 AM Scheduled Provider:Phoebe KENNEDY MD [facility] App[facility] Type: Open Appointment Date:07/05/2024 01:00:00 PM Scheduled Provider: Location:[facility] Appointment Type: Medicare Wellness Subsequent Future Scheduled TestsCBC w/ Auto Diff 07/12/23Comprehensive Metabolic Panel 07/12/23Lipid Panel 07/12/23 [facility] Evaluation + Plan note Future Appointments Appointment Date:02/05/2024 08:20:00 AM Scheduled Provider: [facility] App[facility] Type:FM Nurse Visit Appointment Date:02/08/2024 12:40:00 PM Scheduled Provider:Phoebe KENNEDY MD [facility] App[facility] Type:FM Open Appointment Date:02/23/2024 03:00:00 PM Scheduled Provider: Location:[facility] Appointment Type:Urology CALL PAT FT Appointment Date:03/01/2024 08:00:00 AM Scheduled Provider: Location:[facility] Appointment Type:Urology FT Appointment Date:07/04/2024 09:45:00 AM Scheduled Provider:oMntana CARTAGENA MD Location:[facility] [place] Appointment Type:URO Office Visit Appointment Date:07/05/2024 01:00:00 PM Scheduled Provider: Location:[facility] [place] Appointment Type: Medicare Wellness Subsequent Diagnostic Tests PendingUroVysion Fish and Urine Cyto ([facility]) 02/02/24 Future Scheduled TestsPSA Screen, Total 05/29/24CBC w/ Auto Diff 07/12/23Comprehensive Metabolic Panel 07/12/23Lipid Panel 07/12/23 [facility] Evaluation + Plan note Future Appointments Appointment Date:02/08/2024 12:40:00 PM Scheduled Provider:Phoebe KENNEDY MD Location:[facility] [place] Appointment Type: Open Appointment Date:02/23/2024 03:00:00 PM Scheduled Provider: Location:[facility] Appointment Type:Urology CALL PAT FT Appointment Date:03/01/2024 08:00:00 AM Scheduled Provider: Location:[facility] Appointment Type:Urology FT Appointment Date:07/04/2024 09:45:00 AM Scheduled Provider:[place] CARTAGENA MD Location:[facility] [place] Appointment Type:URO Office Visit Appointment Date:07/05/2024 01:00:00 PM Scheduled Provider: [facility] Type: Medicare Wellness Subsequent Future Scheduled TestsPSA Screen, Total 05/29/24 [facility] [place] Evaluation + Plan note Future Appointments Appointment Date:02/23/2024 03:00:00 PM Scheduled Provider: Location:[facility] Appointment Type:Urology CALL PAT FT Appointment Date:03/01/2024 08:00:00 AM Scheduled Provider: Location:[facility] Appointment Type:Urology FT Appointment Date:06/24/2024 09:20:00 AM Scheduled Provider:Phoebe KENNEDY MD Location:[facility] [place] Appointment Type: Open Appointment Date:06/24/2024 01:00:00 PM Scheduled Provider: Location:[facility] [place] Appointment Type: Medicare Wellness Subsequent Appointment Date:07/04/2024 09:45:00 AM Scheduled Provider:[place] CARTAGENA MD Location:[facility] [place] Appointment Type:URO Office Visit Future Scheduled TestsPSA Screen, Total 05/29/24 [facility] [place] Evaluation + Plan note Future Appointments Appointment Date:06/24/2024 09:20:00 AM Scheduled Provider:Phoebe KENNEDY MD Location:[facility] [place] Appointment Type:FM Open Appointment Date:06/24/2024 01:00:00 PM Scheduled Provider: Location:[facility] [place] Appointment Type:FM Medicare Wellness Subsequent Appointment Date:07/04/2024 09:45:00 AM Scheduled Provider:[place] CARTAGENA MD Location:[facility] [place] Appointment Type:URO Office Visit Future Scheduled TestsPSA Screen, Total 05/29/24 [facility] Evaluation + Plan note Future Appointments Appointment Date:05/02/2024 09:00:00 AM Scheduled Provider: Location:[facility] [place] Appointment Type:URO Nurse Visit Appointment Date:05/20/2024 10:30:00 AM Scheduled Provider:[place] CARTAGENA MD Location:[facility] [place] Appointment Type:URO Office Visit Appointment Date:06/24/2024 09:20:00 AM Scheduled Provider:Phoebe KENNEDY MD Location:[facility] [place] Appointment Type:FM Open Appointment Date:06/24/2024 01:00:00 PM Scheduled Provider: Location:[facility] [place] Appointment Type: Medicare Wellness Subsequent Appointment Date:07/04/2024 09:45:00 AM Scheduled Provider:[place] CARTAGENA MD Location:[facility] [place] Appointment Type:URO Office Visit Future Scheduled TestsPSA Screen, Total 05/29/24PT 03/04/24 [facility] [place] Evaluation note Diagnosis Laceration of right index finger w/o foreign body w/o damage to nail, initial encounter- [facility] Paroxysmal atrial fibrillation (HCC)- Primary Atrial fibrillation Encounter to establish care History of DVT (deep vein thrombosis) Poison renee dermatitis Wellness examination Periodic health assessment, general screening, adult Prostate cancer screening Special screening for malignant neoplasm of prostate [facility] Paroxysmal atrial fibrillation (HCC)- Primary Atrial fibrillation Encounter to establish care History of DVT (deep vein thrombosis) Poison renee dermatitis Wellness examination Periodic health assessment, general screening, adult Prostate cancer screening Special screening for malignant neoplasm of prostate [facility] Narrative No data available for this section [facility] No data available for this section [facility] No data available for this section [facility] [place] Summary Purpose Family History No Family History Records Found Advance Directives No Advanced Directives Records FoundNo Advanced Directives Records FoundNo Advanced Directives Records Found Reason for Referral Specialty Diagnoses / Procedures Referred By Contac t Referred To Contact Cardiology Diagnoses Paroxysmal atrial fibrillation (HCC) Procedures Echocardiogram complete Lou Pacheco PA-C [address] [place] [address] Referral ID Status Reason Start Date Expiration Date V isits Requested Visits Authorized [id number] New Request 04/25/2024 04/25/2025 1 1 Specialty Diagnoses / Procedures Referred By Contact Referred To Contact Anticoagulation Monitoring Diagnoses Paroxysmal atrial fibrillation (HCC) History of DVT (deep vein thrombosis) Lou Pacheco PA-C [address] [place] [address] [facility] [place] [address] Referral ID Status Reason Start Date Expiration Date V isits Requested Visits Authorized [id number] Authorized 04/25/2024 04/25/2026 [id number] Scheduling Instructions The Anticoagulation Clinic Staff will contact eligible referred patients within two business days to schedule their first appointment. The referring physician will be notified of this appointment and will maintain responsibility for anticoagulation monitoring of their patient until that date. Additional Source Comments Care Team (unrecognized sect ion and content) Post Acute Care Nurse Relationship Specialty Start Date End Date Phoebe Kennedy MD [address] [place], [place] [id number] PCP - General Family Medicine 07/12/23 Post Acute Care Nurse Relationship Specialty Start Date End Date Lou Pacheco PA-C [address] [facility], [place] [address] PCP - General Physician Director Of Labor Relations 04/25/24 Post Acute Care Nurse Relationship Specialty Start Date End Date Lou Pacheco PA-C [address] [facility], [place] [address] PCP - General Physician Director Of Labor Relations 04/25/24 Reason for Visit (unrecogniz ed section and content) Reason Comments Finger Laceration Cut right index fing er on ammonia box tender about 30 min ago. Last tdap 01/2023 Reason Comments Establish Care He has poison renee on his arms (unrecognized sect ion and content) No Status Records FoundNo Status Records FoundNo Status Records Found INFORMATION SOURCE (unrecogn ized section and content) DATE CREATED AUTHOR 04/01/2024 [facility] DATE CREATED AUTHOR AUTHOR'S ORGANIZ ATION 04/20/2024 [facility] DATE CREATED AUTHOR AUTHOR'S ORGANIZ ATION 04/29/2024 [facility] FOR RECORDS PERTAINING TO PATIENTS WHO ARE OR HAVE BEEN ENROLLED IN A CHEMICAL DEPENDENCY/SUBSTANCEABUSE PROGRAM, SOME INFORMATION MAY BE OMITTED. This clinical summary was aggregated from multiple sources. Caution should be exercised in using it in the provision of clinical care. This summary normalizes information from multiple sources, and as a consequence, information in this document may materially change the coding, format and clinical context of patient data. In addition, data may be omitted in some cases. CLINICAL DECISIONS SHOULD BE BASED ON THE PRIMARY CLINICAL RECORDS. [employer] provides no warranty or guarantee of the accuracy or completeness of information in this document.
--- NOTE | 2024-05-01 20:07 | PC.NURSE ---
leg bag in place, urine in leg bag appears slightly pink in color but clear at this time
--- NOTE | 2024-05-01 20:10 | ED.MALEGU1 ---
HPI - Male Genitourinary General Chief complaint: Urogenital-Male Stated complaint: bladder spasms Time Seen by Provider: 05/01/24 19:57 Source: patient Mode of arrival: walk-in History of Present Illness HPI Narrative: Patient is a 74-year-old male who presents to the emergency department with concern for an obstructed Jane catheter. He had a three-way coud? Jane catheter placed 3 days ago at this facility when he had a TURP procedure done with Dr. Cartagena. He reported this morning that he felt pressure in the suprapubic abdomen so they went to an emergency department in [place] where the patient lives. The Jane catheter was flushed easily by the ER staff and urine specimen was unremarkable. He is on a blood thinner and did have some blood in his urine earlier. He presents to this emergency department tonight because they are concerned that his Jane catheter is blocked despite the fact that he has a full bag of urine in his leg bag. There is no blood in the urine at this time. He has had no other associated symptoms. Patient states they came to this emergency room tonight because he needs to know if it is blocked . Related Data Home Medications ?Medication ?Instructions ?Recorded ?Confirmed calcium carbonate (Calcium 600) 600 mg PO DAILY 04/18/24 04/18/24 diltiazem HCl 180 mg 180 mg PO DAILY 04/18/24 04/28/24 capsule,extended release 24 hr krill 300 mg-omega-3 90 mg-dha 27 1 cap PO BID 04/18/24 04/18/24 mg-epa 45 [id number] capsule omeprazole 40 mg capsule,delayed 40 mg PO DAILY 04/18/24 04/28/24 release pravastatin 20 mg tablet 20 mg PO QPM 04/18/24 04/28/24 warfarin 5 mg tablet 5 mg PO DAILY 04/18/24 04/28/24 Previous Rx's ?Medication ?Instructions ?Recorded doxycycline hyclate 100 mg capsule 100 mg PO BID 3 days #6 caps 04/28/24 solifenacin 10 mg tablet (Vesicare) 10 mg PO DAILY #3 tabs 04/28/24 Allergies Allergy/AdvReac Type Severity Reaction Status Date / Time No Known Drug Allergies Allergy Verified 04/18/24 10:12 Review of Systems ROS Constitutional Denies: fever or chills Ears, nose, mouth, and throat Denies: throat pain or nasal congestion Respiratory Denies: shortness of breath Gastrointestinal Denies: nausea or vomiting Genitourinary Denies: painful urination Musculoskeletal Denies: back pain or neck pain Integumentary/Breast Denies: rash Hematologic/Lymphatic Denies: easy bruising or easy bleeding [facility] Medical History (Updated 05/01/24 @ 20:50 by ROMULO Frias) [place] filter in place ?Z95.828 - Presence of other vascular implants and grafts (ICD-10) Overweight ?E66.3 - Overweight (ICD-10) DVT (deep venous thrombosis) ?I82.409 - Acute embolism and thrombosis of unspecified deep veins of unspecified lower extremity (ICD-10) Rhinitis ?J31.0 - Chronic rhinitis (ICD-10) Hyperlipidemia ?E78.5 - Hyperlipidemia, unspecified (ICD-10) Venous thrombosis ?I82.90 - Acute embolism and thrombosis of unspecified vein (ICD-10) Gross hematuria ?R31.0 - Gross hematuria (ICD-10) GERD (gastroesophageal reflux disease) ?K21.9 - Gastro-esophageal reflux disease without esophagitis (ICD-10) Urinary frequency ?R35.0 - Frequency of micturition (ICD-10) Chronic venous insufficiency ?I87.2 - Venous insufficiency (chronic) (peripheral) (ICD-10) Chronic atrial fibrillation ?I48.20 - Chronic atrial fibrillation, unspecified (ICD-10) BPH (benign prostatic hyperplasia) ?N40.0 - Benign prostatic hyperplasia without lower urinary tract symptoms (ICD-10) Anticoagulated ?Z79.01 - long term care social worker (current) use of anticoagulants (ICD-10) Enlarged prostate ?N40.0 - Benign prostatic hyperplasia without lower urinary tract symptoms (ICD-10) Surgical History (Updated 04/18/24 @ 10:06 by Lucero Howard RN) History of urologic surgery ?Z98.890 - Other specified postprocedural states (ICD-10) History of tonsillectomy and adenoidectomy ?Z90.89 - Acquired absence of other organs (ICD-10) H/O repair of rotator cuff ?Z98.890 - Other specified postprocedural states (ICD-10) H/O esophagogastroduodenoscopy ?Z98.890 - Other specified postprocedural states (ICD-10) Hx of colonoscopy ?Z98.890 - Other specified postprocedural states (ICD-10) History of cystoscopy ?Z98.890 - Other specified postprocedural states (ICD-10) Family History (Updated 04/18/24 @ 07:52 by Lucero Howard RN) Other Bone cancer Brain cancer Breast cancer Cardiac disease Cataract Congenital heart disease Family history of COPD (chronic obstructive pulmonary disease) Family history of diabetes mellitus Family history of myocardial infarction MRSA carrier Prostate cancer Rheumatoid arthritis Social History Within the past year, how often did you have a drink containing alcohol: never Score interpretation: A score less than 4 is consistent with normal alcohol consumption. Smoking status: Never smoker Second hand tobacco smoke exposure: No Non-prescribed substance use: denies use Previous occupational history: retired Highest level of school completed/degree received: high school graduate Exam Narrative Exam Narrative: Gen.: Awake, alert, in no distress Head: Normocephalic, atraumatic ENT: Moist mucous membranes Respiratory: No respiratory distress Gastrointestinal: Abdomen is soft, nondistended and nontender to palpation Extremities: Moves extremities equally Psych: Normal mood and affect Neuro: No focal neuro deficit Skin: Warm, dry, intact Constitutional Vital Signs, click to edit/add: Last Vital Signs Temp 97.9 F 05/01/24 19:58 Pulse 75 05/01/24 19:58 Resp 18 05/01/24 19:58 BP 150/94 H 05/01/24 19:58 Pulse Ox 98 05/01/24 19:58 O2 Del Method Room Air 05/01/24 19:58 Course Vital Signs Vital signs: Vital Signs Temperature 97.9 F 05/01/24 19:58 Pulse Rate 75 05/01/24 19:58 Respiratory Rate 18 05/01/24 19:58 Blood Pressure 150/94 H 05/01/24 19:58 Pulse Oximetry 98 05/01/24 19:58 Oxygen Delivery Method Room Air 05/01/24 19:58 Temperature 97.9 F 05/01/24 19:58 Pulse Rate 75 05/01/24 19:58 Respiratory Rate 18 05/01/24 19:58 Blood Pressure 150/94 H 05/01/24 19:58 Pulse Oximetry 98 05/01/24 19:58 Oxygen Delivery Method Room Air 05/01/24 19:58 MDM - Male Genitourinary MDM Narrative Medical decision making narrative: Bladder scan shows [address] Guo the on-call urologist who recommended flushing 50 mL to see what is able to be returned. 50 mL were easily flushed and returned, an additional 30 mL were able to be pulled. Urine is visualized draining in the Jane catheter. Patient reevaluated by attending physician. I did discuss the case again with Dr. Guo, he recommended keeping the outpatient appointment tomorrow for follow-up. Oxybutynin was ordered for the patient, he will take this medication at home, he has no pain or spasm in the emergency department, Dr. Guo recommended that if the patient does not have discomfort he should not take it. Patient reevaluated by Dr. Short prior to discharge. Return to the ER if symptoms change or worsen SHARED APC VISIT, PHYSICIAN ATTESTATION: [id number] I performed a substantive part of the MDM during the patient?s E/M visit. I personally evaluated and examined the patient. I personally made or approved the documented management plan and acknowledge its risk of complications. Medical Records Attestation: I reviewed the patient's medical records. Discharge Plan Discharge Stand Alone Forms: Portal Instructions Chief Complaint: Urogenital-Male Clinical Impression: Jane catheter problem Patient Disposition: Home, Self-Care Time of Disposition Decision: 20:48 Condition: Good Prescriptions / Home Meds: No Action calcium carbonate [Calcium 600] 600 mg calcium (1,500 mg) tablet 600 mg PO DAILY warfarin 5 mg tablet 5 mg PO DAILY diltiazem HCl 180 mg capsule,extended release 24hr 180 mg PO DAILY [id number] mg capsule 1 cap PO BID omeprazole 40 mg capsule,delayed release(DR/EC) 40 mg PO DAILY pravastatin 20 mg tablet 20 mg PO QPM doxycycline hyclate 100 mg capsule 100 mg PO BID 3 Days Qty: 6 0RF solifenacin [Vesicare] 10 mg tablet 10 mg PO DAILY Qty: 3 0RF Print Language: Jordanian Instructions: Jane Catheter Placement and Care (ED) Additional Instructions: Keep your appointment with Dr. Cartagena tomorrow, continue your regular home medications. If you develop pain or spasm, you can take the oxybutynin pill Referrals: Luis Kennedy MD [Primary Care Provider] - 1 week Discharge Date/Time: 05/01/24 21:29
[2024-05-01] MEDS: OXYBUTYNIN CHLORIDE 5 MG TAB XL PO (21:26)
== END 2024-05-01 21:29 | disposition home or self-care (01) ==
PROVIDERS: Emergency Provider Internal Medicine; PCP Family Medicine
DX: T83.091A Other mechanical complication of indwelling urethral catheter, initial encounter (principal); Z79.01 Long term (current) use of anticoagulants
CPT/HCPCS: 51798; 99283